=== PATIENT | female | born 1965 | race Hispanic/Latino ===

== ENCOUNTER → 2017-12-23 | Outpatient (CLI) | payer OTHER ==
[~2017-12-23] MED LIST: LEVAQUIN500 MG PO; PROMETHAZINE HC25 M1 PO; TRAMADOL-ACETAMI1 EA PO; ULTRAM 50MG50 MG PO; VESICARE5 MG PO
--- NOTE | 2017-12-23 07:33 | Diagnostic Imaging Report ---
PROCEDURE:X-RAY ABDOMEN - KUB COMPARISON:Abdomen one view 09/09/2017. INDICATIONS:CALCULUS OF KIDNEY FINDINGS: There is a non-obstructed bowel-gas pattern. There are no calcifications projected over the renal shadows, expected course of the ureters or bladder. Bilateral tubal ligation clips. There are no acute osseous abnormalities. The lung bases are clear. CONCLUSION: No acute radiographic abnormality. Dictated by: Vladimir Mojica M.D. on 12/23/2017 at 7:34 Electronically approved by: Vladimir Mojica M.D. on 12/23/2017 at 7:34
== END ==
LOC: RAD 06:37
PROVIDERS: ATTEND Urology
DX: N20.0 Calculus of kidney (principal)
CPT/HCPCS: 74018

== ENCOUNTER → 2018-04-22 | Outpatient (CLI) | payer OTHER ==
--- NOTE | 2018-04-22 09:32 | Diagnostic Imaging Report ---
PROCEDURE:X-RAY ABDOMEN - KUB COMPARISON:12/23/2017. INDICATIONS:KIDNEY STONES FINDINGS: The bowel gas pattern shows no dilated, air-filled loops of bowel. No suspicious calcifications project over the renal shadows or expected ureteral courses. Bilateral tubal ligation clips. Regional skeletal structures are intact with mild degenerative disc changes of the lower lumbar spine. CONCLUSION: no plain film evidence of urolithiasis. Dictated by: Bud Fletcher M.D. on 04/22/2018 at 8:24 Electronically approved by: Bud Fletcher M.D. on 04/22/2018 at 8:24
== END ==
LOC: RAD 07:20
PROVIDERS: ATTEND Urology
DX: N13.30 Unspecified hydronephrosis (principal)
CPT/HCPCS: 74018

== ENCOUNTER → 2019-02-05 | Outpatient (CLI) | payer OTHER ==
--- NOTE | 2019-02-05 10:45 | Diagnostic Imaging Report ---
EXAM: Renal Ultrasound INDICATION: Renal cyst. COMPARISON: KUB 01/13/2019. TECHNIQUE: Transverse and longitudinal images of the kidneys and bladder were obtained. FINDINGS: Right Kidney: Length: Measures 11.9 x 6.1 x 5.5 cm. The renal cortex measures 1.4 cm. Appearance: Normal echogenicity. Collecting system: No hydronephrosis Stones: None Cyst/Mass: No evidence of solid mass. There are simple appearing right-sided anechoic peripelvic cysts, measuring up to 2.9 x 3.3 x 3.9 cm and 2.3 x 1.6 cm. Left Kidney: Length: Measures 11.4 x 5.6 x 5.1 cm. The left renal cortex measures 1.5 cm. Appearance: Normal echogenicity. Collecting system: No hydronephrosis Stones: None Cyst/Mass: None Bladder: Unremarkable in appearance. Bilateral ureteral jets are present. The prevoid volume is 229 cc. No post void volume. IMPRESSION: Simple appearing right peripelvic cysts. No evidence of hydronephrosis or renal stone. Signed by: Dr. Александр Nguyen MD on 02/05/2019 10:42 AM
== END ==
LOC: US 08:55
PROVIDERS: ATTEND Urology
DX: N28.1 Cyst of kidney, acquired (principal)
CPT/HCPCS: 76770

== ENCOUNTER → 2020-03-30 | Outpatient (CLI) | payer OTHER ==
--- NOTE | 2020-03-30 09:00 | Diagnostic Imaging Report ---
Exam: KUB - 2 views Indication: Renal calculus Comparison: Multiple prior KUBs of 01/13/2019 and 04/22/2018, renal ultrasound 02/05/2019 Findings: 8 mm calcific density overlying the upper pole of the left kidney may represent a renal calculus versus intraluminal bowel content. No additional radiographically apparent urinary calculi. Unchanged clips in the pelvis. No acute osseous injury. Impression: 8 mm calcific density overlying the upper pole of the left kidney may represent renal calculus versus intraluminal bowel content. Signed by: Catrina Conroy MD on 03/30/2020 8:56 AM
== END ==
LOC: RAD 07:16
PROVIDERS: ATTEND Urology
DX: N20.0 Calculus of kidney (principal)
CPT/HCPCS: 74018

== ENCOUNTER 2020-04-18 14:58 | Emergency (ER) | payer OTHER ==
[~2020-04-18] VITALS: Ht 154.9 cm; Wt 66.2 kg
[2020-04-18] MEDS ORDERED: MORPHINE SULFATE 2 MG/ML SYR 1ML IV STA (15:29)
[2020-04-18] MEDS ORDERED: SODIUM CHLORIDE 0.9% 1000ML 1,000 ML IV STA (15:29)
[2020-04-18] MEDS ORDERED: KETOROLAC TROMETHAMINE 30 MG/ML VIAL IV STA (15:29)
[2020-04-18] MEDS ORDERED: ONDANSETRON HCL INJ 2MG/ML 2ML 2 MG/ML VIAL IV STA (15:29)
[2020-04-18 15:54] LABS: BILIRUBIN,URINE NEGATIVE (NEGATIVE); CLARITY,URINE SL CLOUDY (CLEAR); COLOR,URINE YELLOW (YELLOW); KETONES,URINE 2+ (NEGATIVE); LEUKOCYTE ESTERASE ,URINE TRACE (NEGATIVE); NITRITE,URINE NEGATIVE (NEGATIVE); PROTEIN,URINE DIPSTICK 1+ (NEGATIVE); URINE UROBILINOGEN 0.2 mg/dL (0.2 - 1)
[2020-04-18 16:05] LABS: BASOPHILS # (AUTO) 0.1 (0.0-0.1); BASOPHILS % 0.5 % (0.0-1.0); EOSINOPHILS % 0.4 % (0.0-6.0); HEMATOCRIT 44.6 % (34.2-44.1); HEMOGLOBIN 15.1 g/dL (12.0-16.0); LYMPHOCYTES # (AUTO) 2.2 (1.0-3.2); MEAN CORPUSCULAR HEMOGLOBIN 30.6 pg (28-32); MEAN CORPUSCULAR HGB CONC 33.9 g/dL (31-35); MEAN CORPUSCULAR VOLUME 90.3 fL (81-99); MONOCYTES # (AUTO) 0.8 (0.2-0.8); MONOCYTES % 7.3 % (4.4-11.3); NEUTROPHILS # (AUTO) 8.3 (2.1-6.9); NEUTROPHILS % 72.4 % (38.7-80.0); PLATELET COUNT 194 x10e3/uL (140-360); RED BLOOD COUNT 4.94 x10e6/uL (3.6-5.1); RED CELL DISTRIBUTION WIDTH 13.3 % (11.7-14.4)
[2020-04-18 16:14] LABS: BACTERIA,URINE MODERATE /HPF; EPITHELIAL CELLS,URINE MODERATE /LPF
[2020-04-18 16:22] LABS: ANION GAP 14.6 mmol/L (8-16); BLOOD UREA NITROGEN 14 mg/dL (7-26); BUN/CREATININE RATIO 16 (6-25); CALCIUM 9.8 mg/dL (8.4-10.2); CARBON DIOXIDE 26 mmol/L (22-29); CHLORIDE 104 mmol/L (98-107); EST GLOMERULAR FILTRATION RATE > 60 ML/MIN (60-); GLUCOSE 127 mg/dL (74-118); POTASSIUM 3.6 mmol/L (3.5-5.1); SODIUM 141 mmol/L (136-145)
[2020-04-18 16:23] LABS: INR 0.81; PROTHROMBIN TIME 11.6 seconds (11.9-14.5)
--- NOTE | 2020-04-18 16:30 | Diagnostic Imaging Report ---
EXAM: CT Abdomen and Pelvis WITHOUT intravenous contrast INDICATION: Left flank pain COMPARISON: KUB 03/30/2020 TECHNIQUE: Abdomen and pelvis were scanned utilizing a multidetector helical scanner from the lung base to the pubic symphysis without administration of IV contrast. Coronal and sagittal reformations were obtained. IV CONTRAST: None ORAL CONTRAST: None COMPLICATIONS: None RADIATION DOSE: Total DLP: 303 mGy*cm Dose modulation, iterative reconstruction, and/or weight based adjustment of the mA/kV was utilized to reduce the radiation dose to as low as reasonably achievable. FINDINGS: LOWER THORAX: Normal. HEPATOBILIARY: No focal hepatic lesions. The gallbladder appears unremarkable. SPLEEN: No splenomegaly. PANCREAS: No focal masses or ductal dilatation. ADRENALS: No adrenal nodules. KIDNEYS/URETERS: 4 mm left mid ureteral calculus with associated moderate left hydroureteronephrosis. Additional 5 mm left upper pole and left lower pole renal calculi. No right-sided calculi. Bilateral renal cysts measure up to 3.5 cm on the right and 2.6 cm on the left. PELVIC ORGANS/BLADDER: Unremarkable. PERITONEUM / RETROPERITONEUM: No free air or fluid. LYMPH NODES: Left internal iliac chain lymphadenopathy measures up to 4.5 x 2.3 cm. VESSELS: Unremarkable. GI TRACT: No abnormal bowel thickening. No bowel obstruction. Normal appendix. BONES AND SOFT TISSUES: No acute osseous injury. No suspicious lytic or blastic lesions. IMPRESSION: 4 mm left mid ureteral calculus with associated moderate left hydroureteronephrosis. Additional 5 mm left upper and lower pole renal calculi. No right renal calculi. Bilateral renal cysts. Left internal iliac lymphadenopathy, possibly reactive. Attention on follow-up imaging is recommended. Signed by: Catrina Conroy MD on 04/18/2020 4:27 PM
[2020-04-18 16:33] LABS: PARTIAL THROMBOPLASTIN TIME 22.4 seconds (23.8-35.5)
--- NOTE | 2020-04-18 16:57 | Emergency Department Note ---
History of Present Illnes History of Present Illness Chief Complaint: Abdominal Complaints History of Present Illness This is a 54 year old female PATIENT IN FROM HOME WITH COMPLAINTS OF LEFT FLANK PAIN X 4 DAYS; STATES HAD A LITHOTRIPSY AT [facility] ON FRIDAY BY DR CASAS, BUT LOST HER PAIN MEDICATION RX. PATIENT STATES SHE WAS SENT BY DR CASAS FOR EVALUATION OF PAIN. APPEARS UNCOMFORTABLE, RATES PAIN 8/10. Historian: Patient Arrival Mode: Car Testing Specialist Required: No Onset (how long ago): day(s) (4) Location: LEFT FLANK Quality: PAIN Radiation: Reports abdomen Severity: severe Onset quality: sudden Timing of current episode: intermittent Progression: waxing and waning Chronicity: recurrent Context: Denies recent illness Relieving factors: none Exacerbating factors: none Associated symptoms: Reports denies other symptoms Treatments prior to arrival: none Past Medical/Family History Physician Review I have reviewed the patient's past medical and family history. Any updates have been documented here. Past Medical History Recent Fever: No Clinical Suspicion of Infectio: No New/Unexplained Change in Ment: No Past Medical History: Diabetes, Hypothyroidism, Kidney Stones Past Surgical History: Hysterectomy Other Surgery: Partial Hysterectomy LITHOTRIPSY Social History Smoking Cessation: Never Smoker Counseling Performed: No Alcohol Use: None Any Illegal Drug Use: No TB Exposure/Symptoms: No Physically hurt or threatened: No Family History Family history of heart diseas: No Other Last Tetanus: OOD Any Pre-Existing Lines (PICC,: No Review of Systems Review of Systems Constitutional: Reports no symptoms EENTM: Reports no symptoms Cardiovascular: Reports no symptoms Respiratory: Reports no symptoms Gastrointestinal: Reports no symptoms Genitourinary: Reports no symptoms Musculoskeletal: Reports as per HPI Integumentary: Reports no symptoms Neurological: Reports no symptoms Psychological: Reports no symptoms Endocrine: Reports no symptoms Hematological/Lymphatic: Reports no symptoms Physical Exam Related Data Allergies: Coded Allergies: codeine (Verified Allergy, Severe, SOB, 04/18/20) hydrocodone (Unverified Allergy, Severe, SOB, 04/18/20) Triage Vital Signs Vital Signs Date Time Temp Pulse Resp B/P (MAP) Pulse Ox O2 Delivery O2 Flow Rate FiO2 04/18/20 15:10 98.7 83 16 132/116 97 Room Air Vital signs reviewed: Yes Physical Exam CONSTITUTIONAL Constitutional: Present well-developed, Present well-nourished HENT HENT: Present normocephalic, Present atraumatic, Present oropharynx clear/moist, Present nose normal HENT L/R: Present left ext ear normal, Present right ext ear normal EYES Eyes: Reports PERRL, Reports conjunctivae normal NECK Neck: Present ROM normal PULMONARY Pulmonary: Present effort normal, Present breath sounds normal CARDIOVASCULAR Cardiovascular: Present regular rhythm, Present heart sounds normal, Present capillary refill normal, Present normal rate GASTROINTESTINAL Abdominal: Present left CVA tenderness GENITOURINARY Genitourinary: Present exam deferred SKIN Skin: Present warm, Present dry MUSCULOSKELETAL Musculoskeletal: Present ROM normal NEUROLOGICAL Neurological: Present alert, Present oriented x 3, Present no gross motor or sensory deficits PSYCHOLOGICAL Psychological: Present mood/affect normal, Present judgement normal Results Laboratory Result Diagram: 04/18/20 1540 04/18/20 1540 Laboratory Laboratory Tests Test 04/18/20 15:40 04/18/20 15:20 White Blood Count 11.39 x10e3/uL (4.8-10.8) Red Blood Count 4.94 x10e6/uL (3.6-5.1) Hemoglobin 15.1 g/dL (12.0-16.0) Hematocrit 44.6 % (34.2-44.1) Mean Corpuscular Volume 90.3 fL (81-99) Mean Corpuscular Hemoglobin 30.6 pg (28-32) Mean Corpuscular Hemoglobin Concent 33.9 g/dL (31-35) Red Cell Distribution Width 13.3 % (11.7-14.4) Platelet Count 194 x10e3/uL (140-360) Neutrophils (%) (Auto) 72.4 % (38.7-80.0) Lymphocytes (%) (Auto) 19.0 % (18.0-39.1) Monocytes (%) (Auto) 7.3 % (4.4-11.3) Eosinophils (%) (Auto) 0.4 % (0.0-6.0) Basophils (%) (Auto) 0.5 % (0.0-1.0) Neutrophils # (Auto) 8.3 (2.1-6.9) Lymphocytes # (Auto) 2.2 (1.0-3.2) Monocytes # (Auto) 0.8 (0.2-0.8) Eosinophils # (Auto) 0.0 (0.0-0.4) Basophils # (Auto) 0.1 (0.0-0.1) Absolute Immature Granulocyte (auto 0.05 x10e3/uL (0-0.1) Prothrombin Time 11.6 seconds (11.9-14.5) Prothromb Time International Ratio 0.81 Activated Partial Thromboplast Time 22.4 seconds (23.8-35.5) Sodium Level 141 mmol/L (136-145) Potassium Level 3.6 mmol/L (3.5-5.1) Chloride Level 104 mmol/L (98-107) Carbon Dioxide Level 26 mmol/L (22-29) Anion Gap 14.6 mmol/L (8-16) Blood Urea Nitrogen 14 mg/dL (7-26) Creatinine 0.90 mg/dL (0.57-1.11) Estimat Glomerular Filtration Rate > 60 ML/MIN (60-) BUN/Creatinine Ratio 16 (6-25) Glucose Level 127 mg/dL (74-118) Calcium Level 9.8 mg/dL (8.4-10.2) Urine Color Yellow (YELLOW) Urine Clarity Sl cloudy (CLEAR) Urine pH 6 (5 - 7) Urine Specific [place] 1.025 (1.010-1.025) Urine Protein 1+ (NEGATIVE) Urine Glucose (UA) Negative (NEGATIVE) Urine Ketones 2+ (NEGATIVE) Urine Blood Moderate (NEGATIVE) Urine Nitrite Negative (NEGATIVE) Urine Bilirubin Negative (NEGATIVE) Urine Urobilinogen 0.2 mg/dL (0.2 - 1) Urine Leukocyte Esterase Trace (NEGATIVE) Urine RBC 11-20 /HPF (0-5) Urine WBC 6-10 /HPF (0-5) Urine Epithelial Cells Moderate /LPF (NONE) Urine Bacteria Moderate /HPF (NONE) Lab results reviewed: Yes Imaging Imaging results reviewed: Yes Impressions EXAM: CT Abdomen and Pelvis WITHOUT intravenous contrast INDICATION: Left flank pain COMPARISON: KUB 03/30/2020 TECHNIQUE: Abdomen and pelvis were scanned utilizing a multidetector helical scanner from the lung base to the pubic symphysis without administration of IV contrast. Coronal and sagittal reformations were obtained. IV CONTRAST: None ORAL CONTRAST: None COMPLICATIONS: None RADIATION DOSE: Total DLP: 303 mGy*cm Dose modulation, iterative reconstruction, and/or weight based adjustment of the mA/kV was utilized to reduce the radiation dose to as low as reasonably achievable. FINDINGS: LOWER THORAX: Normal. HEPATOBILIARY: No focal hepatic lesions. The gallbladder appears unremarkable. SPLEEN: No splenomegaly. PANCREAS: No focal masses or ductal dilatation. ADRENALS: No adrenal nodules. KIDNEYS/URETERS: 4 mm left mid ureteral calculus with associated moderate left hydroureteronephrosis. Additional 5 mm left upper pole and left lower pole renal calculi. No right-sided calculi. Bilateral renal cysts measure up to 3.5 cm on the right and 2.6 cm on the left. PELVIC ORGANS/BLADDER: Unremarkable. PERITONEUM / RETROPERITONEUM: No free air or fluid. LYMPH NODES: Left internal iliac chain lymphadenopathy measures up to 4.5 x 2.3 cm. VESSELS: Unremarkable. GI TRACT: No abnormal bowel thickening. No bowel obstruction. Normal appendix. BONES AND SOFT TISSUES: No acute osseous injury. No suspicious lytic or blastic lesions. IMPRESSION: 4 mm left mid ureteral calculus with associated moderate left hydroureteronephrosis. Additional 5 mm left upper and lower pole renal calculi. No right renal calculi. Bilateral renal cysts. Left internal iliac lymphadenopathy, possibly reactive. Attention on follow-up imaging is recommended. Signed by: Catrina Conroy MD on 04/18/2020 4:27 PM Assessment & Plan Medical Decision Making MDM LEFT FLANK PAIN - CHECK CBC, CHEM, UA/CX, CT ABD/PELVIS - R/O RENAL STONE, PYELONEPHRITIS, RENAL INSUFF, ELECTROLYTE ABNL Reassessment Reassessment REPORT TO DR Lexie NUNEZ TO FOLLOW-UP CT AND UA, DISPO PER DR NUNEZ Assessment & Plan Final Impression: (1) UTI (urinary tract infection) (2) Ureter, calculus Depart Disposition: HOME, SELF-CARE Last Vital Signs Date Time Temp Pulse Resp B/P (MAP) Pulse Ox O2 Delivery O2 Flow Rate FiO2 04/18/20 15:10 98.7 83 16 132/116 97 Room Air Home Meds Reported Medications Tramadol/Acetaminophen (TRAMADOL-ACETAMINOPHN 37.5-325) 1 Ea Tab, 1 TAB PO Q6H PRN for PAIN, #30 EACH 02/11/17 Medications in the ED Morphine Sulfate 2 mg ONCE STAT IV ; Start 04/18/20 at 15:29; Stop 04/18/20 at 16:03; Status DC Ondansetron HCl 4 mg ONCE STAT IV ; Start 04/18/20 at 15:29; Stop 04/18/20 at 15:53; Status DC Ketorolac Tromethamine 30 mg ONCE STAT IV ; Start 04/18/20 at 15:29; Stop 04/18/20 at 15:54; Status DC Sodium Chloride 1,000 ml @ 0 mls/hr Q0M STAT IV ; Start 04/18/20 at 15:29; Stop 04/18/20 at 15:31; Status DC ANTOINETTE LI MD Apr 18, 2020 16:57
[2020-04-18] MEDS ORDERED: ONDANSETRON HCL INJ 2MG/ML 2ML 2 MG/ML VIAL ONE (18:57)
[2020-04-18] MEDS ORDERED: KETOROLAC TROMETHAMINE 30 MG/ML VIAL ONE (18:57)
[2020-04-18] MEDS ORDERED: SODIUM CHLORIDE 0.9% 1000ML 1,000 ML ONE (18:57)
--- OUTSIDE RECORDS SUMMARY | 2020-05-05 11:32 | XMS REPORT | Continuity of Care Document ---
Author Author [facility] t Organization [facility] Address [facility] [place] [address] Phone Unavailable Care Team Providers Care Inbound Sales Representative Name Role Phone HDRUV NAVARRO PCP Gee LI Attphys Unavailable Navneet COHEN, Fany Peralta Attphys Jeanne Echevarria MD Attphys FABIAN CASAS Attphys Unavailable DIONE SALCEDO M.D. Attphys Unavailable Oscar Swift M.D. Attphys Unavailable DHRUV NAVARRO M.D. Attphys Unavailable SHAWN WANG M.D. Attphys Unavailable LUBA STEIN M.D. Attphys Unavailable WALI DIXON P.A. Attphys Unavailable THUY GUAN M.D. Attphys Unavailable WAQAR WHITNEY RD Attphys Unavailable IRON VILLAR M.D. Attphys Unavailable GENA STILL D.O. Attphys Unavailable BABAK ANTONY M.D. Attphys Unavailable FABIAN CASAS Admphyvibha Unavailable Payers Payer Name Policy Type Policy Number Effective Date Expiration Date Vibha lemus [facility] Choice Excha [id number] 2016 00:0 0:00 [facility] MARKETPLACExxxxxxxxxxxx2019-PresentExchange xxxxxxxxxxxx 2019 00:00:00 [place] Problems Condition Name Condition Details Condition Category Status Onset Date Resolution Date Last Treatment Date Treating Clinician Comments Source Calculus of kidney Calculus of kidney Disease Active 2020-04-14 00:00:0 0 Dylan Real Obstructive uropathy Problem Active 2015-03-13 00:00:00 [facility] Calculus of right ureter Problem Active 2015-03-13 00:00:00 [facility] Supraspinatus tendon tear, right, initial encounter [place] praspinatus tendon tear, right, initial encounter Problem Active [facility] BMI (body mass index) 20.0-29.9 BMI (body mass index) 20.0-29.9 Pro blem Active [facility] H/O mammogram H/O mammogram Problem Resolved [facility] History of high cholesterol History of high cholesterol Problem Resolved [facility] History of menopause History of menopause Problem Resolved [facility] History of renal stone History of renal stone Problem Resolved [facility] Bilateral hip pain Bilateral hip pain Problem Active [facility] Bilateral anterior knee pain Bilateral anterior knee pain Problem Active [facility] Right shoulder tendinitis Right shoulder tendinitis Problem Active [facility] Acute internal derangement of knee, right 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, 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 Problem Active [facility] 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 Problem Active [facility] Constipation Constipation Problem Active [facility] Colon cancer screening Colon cancer screening Problem Active [facility] Allergic contact dermatitis due to other agents Allerg ic contact dermatitis due to other agents Problem Active [facility] Seborrheic keratosis Seborrheic keratosis Problem Active [facility] Other rosacea Other rosacea Problem Active [facility] Breast implant status Breast implant status Problem Active [facility] Need for influenza vaccination Need for influenza vaccination Problem Active [facility] Need for hepatitis C screening test Need for hepatitis C screeni ng test Problem Active [facility] Screening for HIV (human immunodeficiency virus) Scree rina for HIV (human immunodeficiency virus) Problem Active [facility] Chronic back pain Chronic back pain Problem Active [facility] Vitamin D deficiency Vitamin D deficiency Problem Active [facility] Other 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 (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) 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 therapy 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 Problem Active [facility] Screening mammogram, encounter for Screening mammogram, encounte r for Problem Active [facility] Bilateral kidney stones Bilateral kidney stones Problem Active [facility] Rectal bleed Rectal bleed Problem Active [facility] Golfers elbow of right upper extremity Golfers elbow of righ t upper extremity Problem Active [facility] B12 deficiency B12 deficiency Problem Active [facility] Fatty liver Fatty liver Problem Active [facility] Traumatic rotator cuff tear, right, initial encounter Traumatic rotator cuff tear, right, initial encounter Problem Active [facility] Prediabetes Prediabetes Problem Active [facility] Ovarian cyst, left Ovarian cyst, left Problem Active [facility] Acquired hypothyroidism Acquired hypothyroidism Problem Active [facility] Dyslipidemia Dyslipidemia Problem Active [facility] Iron deficiency Iron deficiency Problem Active [facility] Abnormal CBC measurement Abnormal CBC measurement Problem Active [facility] Stage 2 chronic kidney disease Stage 2 chronic kidney disease Problem Active [facility] Tremor, essential Tremor, essential Problem Active [facility] Colon polyps Colon polyps Problem Active [facility] History of colon polyps History of colon polyps Problem Active [facility] Abnormal LFTs Abnormal LFTs Problem Active [facility] 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 Problem Active [facility] Solar lentigo Solar lentigo Problem Active [facility] 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 Problem Active [facility] Bilateral renal cysts Bilateral renal cysts Problem Active [facility] Nail disorder Nail disorder Problem Active [facility] Mammogram abnormal Mammogram abnormal Problem Active [facility] Allergies, Adverse Reactions, Alerts Allergy Name Allergy Type Status Severity Reaction(s) Onset Date Inacti ve Date Treating Clinician Comments Source Codeine Allergy to substance Active Severe SOB 2020-04-18 00:00:00 [facility] Hydrocodone Allergy to substance Active Severe SOB 2020-04-18 00:00:00 [facility] Codeine Propensity to adverse reactions to drug Active Anaphylaxis 2020-04-06 00:00:00 Dylan you Hydrocodone Propensity to adverse reactions to drug Active Anaphylaxis 2020-04-06 00:00:00 Dylan Meth odist Codeine Derivatives Allergy to drug (finding) Active Shortness of breath, Anxiety [facility] kristi Chavira Hydrocodone-Acetaminophen CAPS Allergy to drug (finding) Active Shortness of breath, Anxiety [facility] Family History Family Member Diagnosis Comments Start Date Stop Date Source Mother Family history of Diabetes m ellitus due to underlying condition with other ophthalmic complication [facility] Mother Family history of hypertension [facility] Mother Family history of cerebrovascular accident (CVA) [facility] Father Family history of malignant neoplasm of prostate [facility] Sister Family history of malignant neoplasm of breast [facility] Brother Family history of malignant neoplasm of prostate [facility] Natural mother Diabetes [facility] Natural mother Hypertension Dylan Real Social History Social Habit Start Date Stop Date Quantity Comments Source History SDOH Alcohol Std Drinks Dylan Nunnist History SDOH Alcohol Binge Dylan Real Sex Assigned At [place] Exposure to SARS-CoV-2 (event) Not sure Dylan Real Alcohol intake 2020-04-14 00:00:00 2020-04-14 00:00:00 Lifetime non-drinker (finding) Dylan Real History SDOH Alcohol Frequency 2020-04-06 00:00:00 2020-04-06 00:00:0 0 1 Dylan Real Smoking Status Start Date Stop Date Source Never smoker Dylan you Medications Ordered Medication Name Filled Medication Name Start Date Stop Da te Current Medication? Ordering Clinician Indication Dosage Frequency Signature (SIG) Comments Components Source metformin HCl (METFORMIN ORAL) 2020-04-14 13:25:31 Yes QD Take by mouth every morning. Dylan Real levothyroxine sodium (LEVOTHYROXINE ORAL) 2020-04-14 13:25:31 Yes QD Take by mouth every morning. Dylan jacobson multivitamin with minerals tablet 2020-04-14 13:25:31 Yes 1{tbl} QD Take 1 tablet by mouth daily. Dylan [facility] st Lancets Lancets 2019-03-09 00:00:00 Yes DHRUV NAVARRO M.D. Check twice daily [facility] Glucose Meter Test In Vitro Strip Glucose Meter Test In Vitr o Strip 2019-03-09 00:00:00 Yes DHRUV NAVARRO M.D. USE DIRECTED TW A DAY [facility] metFORMIN HCl ER 500 MG Oral Tablet Extended Release 2 4 Hour metFORMIN HCl ER 500 MG Oral Tablet Extended Release 24 Hour 2018-12-28 00:00:00 Yes DHRUV NAVARRO M.D. TAKE 1 TABLET BY MOUTH EVERY DAY [facility] Levothyroxine Sodium 75 MCG Oral Tablet Levothyroxine Sodium 75 MCG Oral Tablet 2018-02-19 00:00:00 Yes SHAWN WANG M.D. QD TA KE 1 TABLET BY MOUTH DAILY [facility] Claudia manning Atorvastatin Calcium 20 MG Oral Tablet Atorvastatin Calcium 20 MG Oral Tablet 2017-05-28 00:00:00 Yes DHRUV NAVARRO M.D. TAKE 1 TABLET BY MOUTH EVERY NIGHT AT BEDTIME [facility] Tramadol/Acetaminophen (Tramadol-Acetaminophn 37.5-325 ) 1 Ea TAB Tramadol/Acetaminophen (Tramadol-Acetaminophn 37.5-325) 1 Ea TAB Yes 1 Every 6 Hours as needed for Pain [facility] Multi Vitamin TABS Multi Vitamin TABS Yes 1 QD TA KE 1 TABLET DAILY. [facility] Vitamin D3 50 MCG (2000 UT) Oral Tablet Vitamin D3 50 MCG (2 000 UT) Oral Tablet Yes Take 1 tab PO daily [facility] Calcium 600 MG Oral Tablet Calcium 600 MG Oral Tablet Yes TAKE 1 TAB BID [facility] Promethazine Hcl Promethazine Hcl 2017-02-20 00:00:00 No 25 Every 6 Hours as needed for Nausea And Vomiting [facility] Solifenacin Succinate (Vesicare) 5 Mg TABLET Solifenac in Succinate (Vesicare) 5 Mg TABLET 2017-02-09 00:00:00 No 5 Daily [facility] Tramadol Hcl (Ultram 50MG*) 50 Mg TAB Tramadol Hcl (Ultram 50MG* ) 50 Mg TAB 2017-02-09 00:00:00 No 50 Every 6 Hours [facility] Levofloxacin (Levaquin) 500 Mg TABLET Levofloxacin (Levaquin) 50 0 Mg TABLET 2015-04-13 00:00:00 No 500 Daily [facility] Immunizations Ordered Immunization Name Filled Immunization Name Date Status Comments Source Hepatitis B, adult 2019-10-11 08:32:00 Completed [facility] Shingrix 50 MCG Intramuscular Suspension Reconstituted 2019-09-05 00:00:00 Completed [facility] Claudia manning Fluzone Quadrivalent 0.5 ML Intramuscular Suspension 2019-07-09 08:21:00 Completed [facility] Claudia manning Shingrix 50 MCG Intramuscular Suspension Reconstituted 2019-07-06 00:00:00 Completed [facility] Hepatitis B, adult 2019-06-15 08:49:00 Completed [facility] Hepatitis B, adult 2019-04-09 09:09:00 Completed [facility] Tdap 2018-06-10 10:26:00 Completed [facility] Fluzone Quadrivalent 0.5 ML Intramuscular Suspension 2018-06-10 10:25:00 Completed [facility] ns Fluzone Quadrivalent 0.5 ML Intramuscular Suspension 2017-07-09 09:18:00 Completed [facility] ns Fluzone Quadrivalent 0.5 ML Intramuscular Suspension 2016-10-31 10:31:00 Completed [facility] Vital Signs Vital Name Observation Time Observation Value Comments Source Weight 2020-04-18 15:10:00 146 [lb_av] [facility] BMI (Body Mass Index) 2020-04-18 15:10:00 27.6 kg/m2 [facility] Systolic blood pressure 2020-04-14 11:50:00 122 mm[Hg] [place] [facility] Diastolic blood pressure 2020-04-14 11:50:00 68 mm[Hg] [place] Heart rate 2020-04-14 11:50:00 68 /min [place] [facility] Respiratory rate 2020-04-14 11:50:00 18 /min Tony veronique [facility] Oxygen saturation in Arterial blood by Pulse oximetry 04-14 11:50:00 98 /min [place] Body temperature 2020-04-14 11:28:00 36.61 Letha [place] Body height 2020-04-14 09:14:00 154.9 cm [place] [facility] Body weight 2020-04-14 09:14:00 66.044 kg [place] [facility] BMI 2020-04-14 09:14:00 27.51 kg/m2 [place] [facility] Systolic blood pressure 2019-12-13 09:56:00 112 mm[Hg] Loca tion: LUE; Position: Sitting [facility] Diastolic blood pressure 2019-12-13 09:56:00 72 mm[Hg] Loc ation: LUE; Position: Sitting [facility] Body height 2019-12-13 09:56:00 61 [in_us] [facility] Weight 2019-12-13 09:56:00 146 [lb_av] [facility] Body mass index (BMI) [Ratio] 2019-12-13 09:56:00 27.59 kg/m2 [facility] Heart Rate 2019-12-13 09:56:00 68 /min Location: L Radial; Q uality: Normal [facility] Systolic blood pressure 2019-11-30 14:12:00 124 mm[Hg] Loca tion: LUE; Position: Sitting [facility] Diastolic blood pressure 2019-11-30 14:12:00 72 mm[Hg] Loc ation: LUE; Position: Sitting [facility] Body height 2019-11-30 14:12:00 61 [in_us] [facility] Weight 2019-11-30 14:12:00 148 [lb_av] [facility] Body mass index (BMI) [Ratio] 2019-11-30 14:12:00 27.96 kg/m2 [facility] Heart Rate 2019-11-30 14:12:00 75 /min [facility] Systolic blood pressure 2019-11-12 08:02:00 114 mm[Hg] Loca tion: LUE; Position: Sitting [facility] Diastolic blood pressure 2019-11-12 08:02:00 79 mm[Hg] Loc ation: LUE; Position: Sitting [facility] Body height 2019-11-12 08:02:00 61 [in_us] [facility] Weight 2019-11-12 08:02:00 144 [lb_av] [facility] Body mass index (BMI) [Ratio] 2019-11-12 08:02:00 27.21 kg/m2 [facility] Body temperature 2019-11-12 08:02:00 97.3 [degF] Method: Temporal [facility] Heart Rate 2019-11-12 08:02:00 77 /min [facility] Respiratory rate 2019-11-12 08:02:00 16 /min [facility] Systolic blood pressure 2019-11-09 08:06:00 103 mm[Hg] Loca tion: LUE; Position: Sitting [facility] Diastolic blood pressure 2019-11-09 08:06:00 71 mm[Hg] Loc ation: LUE; Position: Sitting [facility] Body height 2019-11-09 08:06:00 61 [in_us] [facility] Weight 2019-11-09 08:06:00 144.3125 [lb_av] [facility] Body mass index (BMI) [Ratio] 2019-11-09 08:06:00 27.27 kg/m2 [facility] Heart Rate 2019-11-09 08:06:00 73 /min [facility] BP Systolic 2019-07-09 08:21:00 115 mm[Hg] [facility] BP Diastolic 2019-07-09 08:21:00 81 mm[Hg] [facility] Heart Rate 2019-07-09 08:21:00 67 /min [facility] BP Systolic 2019-07-09 08:19:00 135 mm[Hg] Location: AMBROCIO; Positi on: Sitting [facility] BP Diastolic 2019-07-09 08:19:00 80 mm[Hg] Location: AMBROCIO; Positi on: Sitting [facility] Heart Rate 2019-07-09 08:19:00 66 /min [facility] Height 2019-07-09 08:19:00 61 [in_us] [facility] Weight 2019-07-09 08:19:00 142 [lb_av] [facility] Body Mass Index Calculated 2019-07-09 08:19:00 26.83 kg/m2 [facility] Temperature 2019-07-09 08:19:00 97.2 [degF] Method: Temporal [facility] Respiration Rate 2019-07-09 08:19:00 16 /min [facility] BP Systolic 2019-05-11 08:14:00 120 mm[Hg] Location: AMBROCIO; Positi on: Sitting [facility] BP Diastolic 2019-05-11 08:14:00 78 mm[Hg] Location: AMBROCIO; Positi on: Sitting [facility] Height 2019-05-11 08:14:00 61 [in_us] [facility] Weight 2019-05-11 08:14:00 142.4375 [lb_av] [facility] Body Mass Index Calculated 2019-05-11 08:14:00 26.91 kg/m2 [facility] Heart Rate 2019-05-11 08:14:00 69 /min [facility] [place] [facility] BP Systolic 2019-05-05 13:18:00 106 mm[Hg] Location: RUE; Positi on: Sitting [facility] BP Diastolic 2019-05-05 13:18:00 66 mm[Hg] Location: RUE; Positi on: Sitting [facility] Height 2019-05-05 13:18:00 61.42 [in_us] [facility] Weight 2019-05-05 13:18:00 141.98 [lb_av] [facility] Body Mass Index Calculated 2019-05-05 13:18:00 26.46 kg/m2 [facility] Heart Rate 2019-05-05 13:18:00 96 /min [facility] Temperature 2019-05-05 13:18:00 98.4 [degF] Method: Oral [facility] O2 SAT 2019-05-05 13:18:00 96 % [facility] BP Systolic 2019-04-09 08:13:00 121 mm[Hg] Location: LUE; Positi on: Sitting [facility] BP Diastolic 2019-04-09 08:13:00 76 mm[Hg] Location: AMBROCIO; Positi on: Sitting [facility] Height 2019-04-09 08:13:00 62 [in_us] [facility] Weight 2019-04-09 08:13:00 141.125 [lb_av] [facility] Body [facility] Index Calculated 2019-04-09 08:13:00 25.81 kg/m2 [facility] Temperature 2019-04-09 08:13:00 97.8 [degF] Method: Temporal [facility] Heart Rate 2019-04-09 08:13:00 61 /min Location: L Brachial Artery; [facility] Respiration Rate 2019-04-09 08:13:00 16 /min Quality: [facility] Height 2019-02-02 10:12:00 62 [in_us] [facility] Weight 2019-02-02 10:12:00 151 [lb_av] [facility] Body Mass Index Calculated 2019-02-02 10:12:00 27.62 kg/m2 [facility] BP Systolic 2019-01-12 08:06:00 122 mm[Hg] Location: LUE; Positi on: Sitting [facility] BP Diastolic 2019-01-12 08:06:00 76 mm[Hg] Location: LUE; Positi on: Sitting [facility] Height 2019-01-12 08:06:00 62 [in_us] [facility] Weight 2019-01-12 08:06:00 150.1875 [lb_av] [facility] Body Mass Index Calculated 2019-01-12 08:06:00 27.47 kg/m2 [facility] Heart Rate 2019-01-12 08:06:00 67 /min [facility] BP Systolic 2018-12-28 09:11:00 117 mm[Hg] Location: WILBERE; Positi on: Sitting [facility] BP Diastolic 2018-12-28 09:11:00 82 mm[Hg] Location: W[place]; Positi on: Sitting [facility] Height 2018-12-28 09:11:00 62 [in_us] [facility] Weight 2018-12-28 09:11:00 153.0625 [lb_av] [facility] Body Mass Index Calculated 2018-12-28 09:11:00 28 kg/m2 [facility] Heart Rate 2018-12-28 09:11:00 74 /min [facility] Temperature 2018-12-28 09:11:00 97.8 [degF] Method: Temporal [facility] Respiration Rate 2018-12-28 09:11:00 16 /min [facility] BP Systolic 2018-10-28 08:25:00 112 mm[Hg] Location: LUE; Positi on: Sitting [facility] BP Diastolic 2018-10-28 08:25:00 79 mm[Hg] Location: LUE; Positi on: Sitting [facility] Height 2018-10-28 08:25:00 62 [in_us] [facility] Weight 2018-10-28 08:25:00 152.5625 [lb_av] [facility] Body Mass Index Calculated 2018-10-28 08:25:00 27.9 kg/m2 [facility] Heart Rate 2018-10-28 08:25:00 89 /min [facility] BP Systolic 2018-09-02 08:15:00 118 mm[Hg] Location: LUE; Positi on: Sitting [facility] BP Diastolic 2018-09-02 08:15:00 80 mm[Hg] Location: LUE; Positi on: Sitting [facility] Height 2018-09-02 08:15:00 62 [in_us] [facility] Weight 2018-09-02 08:15:00 153.125 [lb_av] [facility] Body Mass Index Calculated 2018-09-02 08:15:00 28.01 kg/m2 [facility] Temperature 2018-09-02 08:15:00 97.2 [degF] Method: Temporal [facility] Heart Rate 2018-09-02 08:15:00 70 /min [facility] Respiration Rate 2018-09-02 08:15:00 16 /min [facility] BP Systolic 2018-08-19 13:49:00 119 mm[Hg] Location: LUE; Positi on: Sitting [facility] BP Diastolic 2018-08-19 13:49:00 77 mm[Hg] Location: LUE; Positi on: Sitting [facility] Height 2018-08-19 13:49:00 62 [in_us] [facility] Weight 2018-08-19 13:49:00 154.0625 [lb_av] [facility] Body Mass Index Calculated 2018-08-19 13:49:00 28.18 kg/m2 [facility] Temperature 2018-08-19 13:49:00 97.8 [degF] Method: Oral [facility] Heart Rate 2018-08-19 13:49:00 87 /min [facility] BP Systolic 2018-08-05 08:35:00 123 mm[Hg] Location: LUE; Positi on: Sitting [facility] BP Diastolic 2018-08-05 08:35:00 81 mm[Hg] Location: LUE; Positi on: Sitting [facility] Height 2018-08-05 08:35:00 62 [in_us] [facility] Weight 2018-08-05 08:35:00 150.25 [lb_av] [facility] Body Mass Index Calculated 2018-08-05 08:35:00 27.48 kg/m2 [facility] Heart Rate 2018-08-05 08:35:00 73 /min [facility] BP Systolic 2018-07-23 08:19:00 113 mm[Hg] Location: LUE; Positi on: Sitting [facility] BP Diastolic 2018-07-23 08:19:00 79 mm[Hg] Location: AMBROCIO; Positi on: Sitting [facility] Height 2018-07-23 08:19:00 62 [in_us] [facility] Weight 2018-07-23 08:19:00 149.4375 [lb_av] [facility] Body Mass Index Calculated 2018-07-23 08:19:00 27.33 kg/m2 [facility] Heart Rate 2018-07-23 08:19:00 67 /min [facility] Temperature 2018-07-23 08:19:00 97.4 [degF] Method: Temporal [facility] Respiration Rate 2018-07-23 08:19:00 16 /min [facility] BP Systolic 2018-07-08 11:45:00 106 mm[Hg] Location: AMBROCIO; Positi on: Sitting [facility] BP Diastolic 2018-07-08 11:45:00 69 mm[Hg] Location: AMBROCIO; Positi on: Sitting [facility] Height 2018-07-08 11:45:00 62 [in_us] [facility] Weight 2018-07-08 11:45:00 148.375 [lb_av] [facility] Body Mass Index Calculated 2018-07-08 11:45:00 27.14 kg/m2 [facility] Heart Rate 2018-07-08 11:45:00 68 /min [facility] Temperature 2018-07-08 11:45:00 97.7 [degF] Method: Temporal [facility] Respiration Rate 2018-07-08 11:45:00 16 /min [facility] BP Systolic 2018-06-10 08:07:00 101 mm[Hg] Location: AMBROCIO; Positi on: Sitting [facility] BP Diastolic 2018-06-10 08:07:00 67 mm[Hg] Location: WILBERE; Positi on: Sitting [facility] Height 2018-06-10 08:07:00 62 [in_us] [facility] Weight 2018-06-10 08:07:00 149.5625 [lb_av] [facility] Body Mass Index Calculated 2018-06-10 08:07:00 27.36 kg/m2 [facility] Temperature 2018-06-10 08:07:00 97.5 [degF] Method: Temporal [facility] Heart Rate 2018-06-10 08:07:00 63 /min [facility] Respiration Rate 2018-06-10 08:07:00 16 /min [facility] BP Systolic 2018-05-20 08:53:00 112 mm[Hg] Location: AMBROCIO; Positi on: Sitting [facility] BP Diastolic 2018-05-20 08:53:00 75 mm[Hg] Location: AMBROCIO; Positi on: Sitting [facility] Height 2018-05-20 08:53:00 62 [in_us] [facility] Weight 2018-05-20 08:53:00 150.3125 [lb_av] [facility] Body Mass Index Calculated 2018-05-20 08:53:00 27.49 kg/m2 [facility] Heart Rate 2018-05-20 08:53:00 69 /min [facility] BP Systolic 2018-04-01 11:50:00 103 mm[Hg] Location: AMBROCIO; Positi on: Sitting [facility] BP Diastolic 2018-04-01 11:50:00 67 mm[Hg] Location: AMBROCIO; Positi on: Sitting [facility] Height 2018-04-01 11:50:00 152.9 cm [facility] Weight 2018-04-01 11:50:00 148.0375 [lb_av] [facility] Body Mass Index Calculated 2018-04-01 11:50:00 28.72 kg/m2 [facility] Temperature 2018-04-01 11:50:00 98.5 [degF] Method: Oral [facility] Heart Rate 2018-04-01 11:50:00 63 /min Location: L Brachial Artery; Quality: Normal [facility] Respiration Rate 2018-04-01 11:50:00 16 /min Quality: Normal [facility] O2 SAT 2018-04-01 11:50:00 100 % Source: RA [facility] BP Systolic 2018-02-13 10:13:00 132 mm[Hg] Location: LUE; Positi on: Sitting [facility] BP Diastolic 2018-02-13 10:13:00 84 mm[Hg] Location: LUE; Positi on: Sitting [facility] Height 2018-02-13 10:13:00 61 [in_us] [facility] Weight 2018-02-13 10:13:00 150.375 [lb_av] [facility] Body Mass Index Calculated 2018-02-13 10:13:00 28.41 kg/m2 [facility] Heart Rate 2018-02-13 10:13:00 71 /min [facility] BP Systolic 2017-12-10 08:16:00 120 mm[Hg] Location: LUE; Positi on: Sitting [facility] BP Diastolic 2017-12-10 08:16:00 79 mm[Hg] Location: LUE; Positi on: Sitting [facility] Height 2017-12-10 08:16:00 61 [in_us] [facility] Weight 2017-12-10 08:16:00 153.375 [lb_av] [facility] Body Mass Index Calculated 2017-12-10 08:16:00 28.98 kg/m2 [facility] Temperature 2017-12-10 08:16:00 97.6 [degF] Method: Temporal [facility] Heart Rate 2017-12-10 08:16:00 68 /min [facility] Respiration Rate 2017-12-10 08:16:00 16 /min [facility] BP Systolic 2017-12-05 08:22:00 107 mm[Hg] Location: LUE; Positi on: Sitting [facility] BP Diastolic 2017-12-05 08:22:00 72 mm[Hg] Location: LUE; Positi on: Sitting [facility] Height 2017-12-05 08:22:00 61 [in_us] [facility] Weight 2017-12-05 08:22:00 151 [lb_av] [facility] Body Mass Index Calculated 2017-12-05 08:22:00 28.53 kg/m2 [facility] Temperature 2017-12-05 08:22:00 99.2 [degF] Method: Oral [facility] Heart Rate 2017-12-05 08:22:00 67 /min Location: L Radial; [facility] BP Systolic 2017-10-24 12:52:00 127 mm[Hg] Location: WILBERE; Positi on: Sitting [facility] BP Diastolic 2017-10-24 12:52:00 81 mm[Hg] Location: WILBERE; Positi on: Sitting [facility] Height 2017-10-24 12:52:00 61 [in_us] [facility] Weight 2017-10-24 12:52:00 153.375 [lb_av] [facility] Body Mass Index Calculated 2017-10-24 12:52:00 28.98 kg/m2 [facility] Heart Rate 2017-10-24 12:52:00 76 /min [facility] Respiration Rate 2017-10-24 12:52:00 16 /min [facility] BP Systolic 2017-10-16 08:42:00 114 mm[Hg] Location: WILBERE; Positi on: Sitting [facility] BP Diastolic 2017-10-16 08:42:00 74 mm[Hg] Location: AMBROCIO; Positi on: Sitting [facility] Height 2017-10-16 08:42:00 61 [in_us] [facility] Weight 2017-10-16 08:42:00 151.375 [lb_av] [facility] Body Mass Index Calculated 2017-10-16 08:42:00 28.6 kg/m2 [facility] Temperature 2017-10-16 08:42:00 97.4 [degF] Method: Temporal [facility] Heart Rate 2017-10-16 08:42:00 77 /min Location: L Brachial Artery; [facility] Respiration Rate 2017-10-16 08:42:00 16 /min Quality: Normal [facility] BP Systolic 2017-08-21 10:06:00 116 mm[Hg] Location: LUE; Positi on: Sitting [facility] BP Diastolic 2017-08-21 10:06:00 77 mm[Hg] Location: LUE; Positi on: Sitting [facility] Height 2017-08-21 10:06:00 61 [in_us] [facility] Weight 2017-08-21 10:06:00 150 [lb_av] [facility] Body Mass Index Calculated 2017-08-21 10:06:00 28.34 kg/m2 [facility] Temperature 2017-08-21 10:06:00 98.2 [degF] Method: Temporal [facility] Heart Rate 2017-08-21 10:06:00 62 /min [facility] Respiration Rate 2017-08-21 10:06:00 16 /min [facility] BP Systolic 2017-08-06 09:12:00 112 mm[Hg] Location: RUE; Positi on: Sitting [facility] BP Diastolic 2017-08-06 09:12:00 79 mm[Hg] Location: RUE; Positi on: Sitting [facility] Height 2017-08-06 09:12:00 61 [in_us] [facility] Weight 2017-08-06 09:12:00 146 [lb_av] [facility] Body Mass Index Calculated 2017-08-06 09:12:00 27.59 kg/m2 [facility] Temperature 2017-08-06 09:12:00 98.5 [degF] Method: Oral [facility] Heart Rate 2017-08-06 09:12:00 62 /min [facility] Respiration Rate 2017-08-06 09:12:00 18 /min [facility] Procedures Procedure Date / Time Performed Performing Clinician Margarita early CT of abdomen and pelvis without contrast 2020-04-18 00:00:00 [facility] MI AN ELECTIVE SUPRAGLOTTIC AIRWAY 2020-04-14 10:10:53 Bob Aguayo ESWL WITH CYSTO 2020-04-14 10:00:00 Fabian Casas ethodist POC GLUCOSE 2020-04-14 09:19:00 Fabian Casas ethodist XR ABDOMEN 1 VW 2020-04-14 08:40:00 Fabian Casas ethodi URINE CULTURE 2020-04-10 13:18:00 Fabian Casas COVID-19 QUALITATIVE PCR 2020-04-10 12:20:00 Fabian Casas URINALYSIS SCREEN AND MICROSCOPY, WITH REFLEX TO CULTURE 202 12:20:00 Fabian Casas HEMOGLOBIN A1C 2020-04-10 12:19:00 Fabian Casas ethodi BASIC METABOLIC PANEL 2020-04-10 12:19:00 Fabian Casas stolazaro Real [facility] COMPLETE BLD COUNT W/AUTO DIFF 2020-04-10 12:19:00 Cait Casas ESTIMATED GFR 2020-04-10 12:19:00 Fabian Casas ethodist Colonoscopy 2019-12-14 00:00:00 [facility] [place] [facility] [ON LICENSE OF [facility]] FOLATE, SERUM 2019-11-30 00:00:00 [facility] [Q] METHYLMALONIC ACID AND HOMOCYSTEINE (NUTRITIONAL A ND CONGENITAL) 2019-11-30 00:00:00 [facility] [ON LICENSE OF [facility]] VITAMIN B12 2019-11-30 00:00:00 [facility] [ON LICENSE OF [facility]] TSH, 3RD GENERATION W/REFLEX TO FT4 2019-11-09 00:00:00 [facility] [ON LICENSE OF [facility]] CBC (INCLUDES DIFF/PLT) 2019-07-09 00:00:00 [facility] [ON LICENSE OF [facility]] CMP W/EGFR 2019-07-09 00:00:00 [facility] [ON LICENSE OF [facility]] FERRITIN 2019-07-09 00:00:00 [facility] [place] [facility] [ON LICENSE OF [facility]] LIPID PANEL 2019-07-09 00:00:00 [facility] [ON LICENSE OF [facility]] TSH, 3RD GENERATION W/REFLEX TO FT4 2019-07-09 00:00:00 [facility] [ON LICENSE OF [facility]] HEMOGLOBIN A1c 2019-07-09 00:00:00 [facility] [ON LICENSE OF [facility]] TSH, 3RD GENERATION W/REFLEX TO FT4 2019-05-11 00:00:00 [facility] [QL] CA 125 2019-05-05 00:00:00 [facility] Pelvis with Pelvis Transvaginal [id number] 2019-05-05 00:00:00 [facility] [ON LICENSE OF [facility]] LIPID PANEL 2019-04-12 00:00:00 [facility] [Q] FECAL GLOBIN BY IMMUNOCHEMISTRY 2019-04-09 00:00:00 [facility] [ON LICENSE OF [facility]] LIPID PANEL 2019-04-09 00:00:00 [facility] MA Digital Mammo DX Santy [id number] 2019-02-10 00:00:00 [facility] [place] [id number] 2019-02-10 00:00:00 [facility] [ON LICENSE OF [facility]] TSH, 3RD GENERATION W/REFLEX TO FT4 2019-01-12 00:00:00 [facility] [ON LICENSE OF [facility]] CBC (INCLUDES DIFF/PLT) 2018-12-28 00:00:00 [facility] [ON LICENSE OF [facility]] BASIC METABOLIC PANEL W/EGFR 2018-12-28 00:00:00 [facility] [H] Methylmalonic Acid and Homocysteine 2018-12-28 00:00:00 [facility] [QL] HEPATIC FUNCTION PANEL 2018-12-28 00:00:00 [facility] [QL] HEPATITIS A AB, TOTAL 2018-12-28 00:00:00 [facility] [ON LICENSE OF [facility]] HEPATITIS A IGM 2018-12-28 00:00:00 [facility] [ON LICENSE OF [facility]] HEPATITIS B SURFACE ANTIBODY (QUANT) 2018-12-28 00:00:00 [facility] [ON LICENSE OF [facility]] HEPATITIS C ANTIBODY 2018-12-28 00:00:00 [facility]] IRON AND TOTAL IRON BINDING CAPACITY 2018-12-28 00:00:00 [facility] [ON LICENSE OF [facility]] FERRITIN 2018-12-28 00:00:00 [facility] [QH] HEPATITIS B SURFACE ANTIGEN W/REFL CONFIRM 2018-12-28 00:00 :00 [facility] Liver [id number] 2018-12-28 00:00:00 [facility] [Q] METHYLMALONIC ACID AND HOMOCYSTEINE (NUTRITIONAL A ND CONGENITAL) 2018-12-23 00:00:00 [facility] [QL] HEPATIC FUNCTION PANEL 2018-12-23 00:00:00 [facility] [QL] HEPATITIS A AB, TOTAL 2018-12-23 00:00:00 [facility] [ON LICENSE OF [facility]] HEPATITIS A IGM 2018-12-23 00:00:00 [facility]] HEPATITIS B SURFACE ANTIBODY (QUANT) 2018-12-23 00:00:00 [facility] [QL] HEPATITIS C ANTIBODY 2018-12-23 00:00[facility]00 [facility] [Q] HEPATITIS B SURFACE ANTIGEN W/REFL CONFIRM 2018-12-23 00:00 :00 [facility] [] IRON, TIBC AND FERRITIN PANEL 2018-12-23 00:00:00 [facility] [ON LICENSE OF [facility]] CBC (INCLUDES DIFF/PLT) 2018-12-08 00:00:00 [facility] [ON LICENSE OF [facility]] CMP W/EGFR 2018-12-08 00:00:00 [facility] [ON LICENSE OF [facility]] LIPID PANEL 2018-12-08 00:00:00 [facility] [ON LICENSE OF [facility]] VITAMIN D, 25-HYDROXY, LC/MS/MS 2018-12-08 00:00:00 [facility] [ON LICENSE OF [facility]] VITAMIN B12 2018-12-08 00:00:00 [facility] [] LIPID PANEL WITH REFLEX TO DIRECT LDL 2018-12-08 00:00:00 [facility] [QL] VITAMIN D, 1,25 DIHYDROXY LC/MS/MS 2018-12-08 00:00:00 [facility] ID Digital Mammo Screening Santy [id number] 2018-12-08 00:00:00 [facility] Post Op Promise 29 Survey 2018-11-17 00:00:00 [facility] Promis 29 Survey 2018-11-17 00:00:00 [facility] [QL] TSH, 3RD GENERATION W/REFLEX TO FT4 2018-10-28 00:00:00 [facility] [QL] TSH, 3RD GENERATION W/REFLEX TO FT4 2018-08-05 00:00:00 [facility] MR Shoulder wo contrast [id number] 2018-07-23 00:00:00 [facility] US Extremity upper (non-vascular) [id number] 2018-07-08 00:00:00 [facility] [QLH] VITAMIN D, 25-HYDROXY, LC/MS/MS 2018-06-10 00:00:00 [facility] [QLH] HEPATITIS C ANTIBODY 2018-06-10 00:00:00 [facility] [Q] HIV AB, HIV 1/2, EIA, WITH REFLEXES 2018-06-10 00:00:00 [facility] [QLH] TSH, 3RD GENERATION W/REFLEX TO FT4 2018-05-20 00:00:00 [facility] [QLH] TSH, 3RD GENERATION W/REFLEX TO FT4 2018-02-19 00:00:00 [facility] Pelvis with Pelvis Transvaginal [id number] 2018-02-17 00:00:00 [facility] [QL] THYROID PEROXIDASE ANTIBODIES 2018-02-13 00:00:00 [facility] [QL] TSH, 3RD GENERATION 2018-02-05 00:00:00 Un [facility] [QL] T3, TOTAL 2018-02-04 00:00:00 [facility] [place] [facility] [QL] T4, FREE 2018-02-04 00:00:00 [facility] [QLH] TSH, 3RD GENERATION 2018-02-04 00:00:00 Un [facility] [QL] CBC (INCLUDES DIFF/PLT) 2017-12-10 00:00:00 [facility] [QLH] CMP W/EGFR 2017-12-10 00:00:00 [facility] [QL] LIPID PANEL 2017-12-10 00:00:00 [facility] [QLH] TSH, 3RD GENERATION W/REFLEX TO FT4 2017-12-10 00:00:00 [facility] [QLH] VITAMIN D, 25-HYDROXY, LC/MS/MS 2017-12-10 00:00:00 [facility] [QL] HEMOGLOBIN A1c 2017-12-10 00:00:00 [facility] [H] Methylmalonic Acid and Homocysteine 2017-12-10 00:00:00 [facility] MA Digital Mammo Screening Santy [id number] 2017-12-10 00:00:00 [facility] US Pelvis with Pelvis Transvaginal [id number] 2017-08-06 00:00:00 [facility] History of Breast Surgery Removal Of Mammary Implant Bilateral [facility] History of Abdominoplasty [facility] History of Oophorectomy [facility] History of Hysterectomy [facility] History of Rotator Cuff Repair [facility] Plan of Care Planned Activity Planned Date Details Comments Source Future Scheduled Test 2020-05-06 00:00:00 INFLUENZA VACCINE [code = INFLUENZA VACCINE] [facility] Future Scheduled Test 2020-04-24 00:00:00 [QLH] TSH, 3RD GEN ERATION W/REFLEX TO FT4 [code = [QLH] TSH, 3RD GENERATION W/REFLEX TO FT4] [facility] Diagnostic Test Pending 2019-12-16 00:00:00 Colonoscopy [code = 737 [id number]] [facility] Diagnostic Test Pending 2019-12-16 00:00:00 Colonoscopy [code = 737 [id number]] [facility] Diagnostic Test Pending 2019-10-25 00:00:00 [QLH] TSH, 3RD G ENERATION W/REFLEX TO FT4 [code = [QLH] TSH, 3RD GENERATION W/REFLEX TO FT4] [facility] Diagnostic Test Pending 2019-10-25 00:00:00 [QLH] TSH, 3RD G ENERATION W/REFLEX TO FT4 [code = [QLH] TSH, 3RD GENERATION W/REFLEX TO FT4] [facility] Diagnostic Test Pending 2019-05-03 00:00:00 [QLH] TSH, 3RD G ENERATION W/REFLEX TO FT4 [code = [QLH] TSH, 3RD GENERATION W/REFLEX TO FT4] [facility] Diagnostic Test Pending 2019-05-03 00:00:00 [QLH] TSH, 3RD G ENERATION W/REFLEX TO FT4 [code = [QLH] TSH, 3RD GENERATION W/REFLEX TO FT4] [facility] Diagnostic Test Pending 2018-12-23 00:00:00 [QLH] TSH, 3RD G ENERATION W/REFLEX TO FT4 [code = [QLH] TSH, 3RD GENERATION W/REFLEX TO FT4] [facility] Diagnostic Test Pending 2018-12-23 00:00:00 [QLH] TSH, 3RD G ENERATION W/REFLEX TO FT4 [code = [QLH] TSH, 3RD GENERATION W/REFLEX TO FT4] [facility] Diagnostic Test Pending 2018-10-08 00:00:00 [QLH] TSH, 3RD G ENERATION W/REFLEX TO FT4 [code = [QLH] TSH, 3RD GENERATION W/REFLEX TO FT4] [facility] Diagnostic Test Pending 2018-10-08 00:00:00 [QLH] TSH, 3RD G ENERATION W/REFLEX TO FT4 [code = [QLH] TSH, 3RD GENERATION W/REFLEX TO FT4] [facility] Diagnostic Test Pending 2018-07-20 00:00:00 [QLH] TSH, 3RD G ENERATION W/REFLEX TO FT4 [code = [QLH] TSH, 3RD GENERATION W/REFLEX TO FT4] [facility] Diagnostic Test Pending 2018-07-20 00:00:00 [QLH] TSH, 3RD G ENERATION W/REFLEX TO FT4 [code = [QLH] TSH, 3RD GENERATION W/REFLEX TO FT4] [facility] Diagnostic Test Pending 2018-05-11 00:00:00 [QLH] TSH, 3RD G ENERATION W/REFLEX TO FT4 [code = [QLH] TSH, 3RD GENERATION W/REFLEX TO FT4] [facility] Diagnostic Test Pending 2018-05-11 00:00:00 [QLH] TSH, 3RD G ENERATION W/REFLEX TO FT4 [code = [QLH] TSH, 3RD GENERATION W/REFLEX TO FT4] [facility] Diagnostic Test Pending 2017-08-27 00:00:00 [QLH] CMP W/EGFR [code = [QLH] CMP W/EGFR] [facility] Diagnostic Test Pending 2017-08-27 00:00:00 [QLH] LIPID PANE L [code = [QLH] LIPID PANEL] [facility] Future Scheduled Test 2015 00:00:00 BREAST CANCER SCRE ENING [code = BREAST CANCER SCREENING] [facility] Scheduled Test 2015 00:00:00 COLONOSCOPY SCREEN ING [code = COLONOSCOPY SCREENING] [facility] Scheduled Test 2015 00:00:00 SHINGLES VACCINES (#1) [code = SHINGLES VACCINES (#1)] [facility] Scheduled Test 1986 00:00:00 Screening for jerry gnant neoplasm of cervix (procedure) [code = 631656311] [facility] 2020-06-07 08:00:00 Leidy ESCOBAR, [facility] Future Appointment 2020-05-12 08:00:00 Leidy BARTLETT [facility] Future Appointment 2020-05-09 08:00:00 [facility] Kidney Stones [facility] Instructions Urinary Tract Infection - Women [facility] Encounters Start Date/Time End Date/Time Encounter Type Admission Type Attendi RUST Care Department Encounter ID Source 2020-04-18 15:25:00 2020-04-18 20:23:00 Departed Emergency Room 1 KYLAH LIELIAN [facility] [id number] [facility] 2020-04-14 00:00:00 2020-04-14 00:00:00 Outpatient DEREK CASAS [facility] [id number] [facility] 2020-04-10 00:00:00 2020-04-10 00:00:[address] [facility] [id number] [facility] 2020-03-30 07:16:00 2020-03-30 07:16:00 Registered Clinic 3 FABIAN CASAS [facility] [id number] [facility] 2019-12-16 05:38:00 2019-12-16 05:38:00 Outpatient SE SE [id number] [facility] 2019-12-13 10:00:00 2019-12-13 10:00:00 Appointment; DIONE SALCEDO M.D. CATALANO, MARC, M.D. [facility] [id number] [facility] 2019-11-30 14:15:00 2019-11-30 14:15:00 Appointment; Oscar Swift M.D. Quesada, Jorge, M.D. [facility], [address] [id number] [facility] 2019-11-12 08:15:00 2019-11-12 08:15:00 Appointment; DHRUV NAVARRO M.D. SATTAR, BEENA, M.D. [facility] [id number] [facility] 2019-11-09 08:00:00 2019-11-09 08:00:00 Appointment; SHAWN WANG M.D. NASSIF, JULIA, M.D. [facility], [address] [id number] [facility] 2019-10-11 08:15:00 2019-10-11 08:15:00 Appointment; DHRUV NAVARRO M.D. SATTAR, BEENA, M.D. [facility] [id number] [facility] 2019-07-09 08:15:00 2019-07-09 08:15:00 Appointment; DHRUV NAVARRO M.D. SATTAR, BEENA, M.D. [facility] [id number] [facility] 2019-06-15 08:00:00 2019-06-15 08:00:00 Appointment; DHRUV NAVARRO M.D. SATTAR, BEENA, M.D. [facility] [id number] [facility] 2019-05-24 06:27:00 2019-05-24 06:27:00 [id number] [facility] 2019-05-20 10:15:00 2019-05-20 10:15:00 Appointment; LUBA STEIN M .D. MEEKS, EVAN, M.D. [facility] Orthopedics [facility] [id number] [facility] 2019-05-11 11:15:00 2019-05-11 11:15:00 Appointment; WALI DIXON P.A. CAMPOS, BERTHA, P.A. [facility] [id number] [facility] 2019-05-11 08:00:00 2019-05-11 08:00:00 Appointment; SHAWN WANG M.D. NASSIF, JULIA, M.D. [facility], [address] [id number] [facility] 2019-05-05 13:20:00 2019-05-05 13:20:00 Appointment; CONRADO GUAN M.D. NUGENT, ELIZABETH, M.D. [facility] Gynecologic Oncology [facility] [id number] [facility] 2019-04-13 08:15:00 2019-04-13 08:15:00 Appointment; DHRUV NAVARRO M.D. SATTAR, BEENA, M.D. [facility] [id number] [facility] 2019-04-09 08:15:00 2019-04-09 08:15:00 Appointment; DHRUV NAVARRO M.D. SATTAR, BEENA, M.D. [facility] [id number] [facility] 2019-03-30 08:00:00 2019-03-30 08:00:00 Appointment; DHRUV NAVARRO M.D. SATTAR, BEENA, M.D. [facility] [id number] [facility] 2019-03-11 10:15:00 2019-03-11 10:15:00 Appointment; LUBA STEIN M .D. MEEKS, EVAN, M.D. [facility] Orthopedics [facility] [id number] [facility] 2019-02-02 08:00:00 2019-02-02 08:00:00 Appointment; WAQAR WHITNEY RD WRIGHT, TISH, RD [facility] [id number] [facility] 2019-01-12 08:00:00 2019-01-12 08:00:00 Appointment; SHAWN WANG M.D. NASSIF, JULIA, M.D. [facility] [address] [id number] [facility] 2018-12-28 09:00:00 2018-12-28 09:00:00 Appointment; DHRUV NAVARRO M.D. SATTAR, BEENA, M.D. [facility] [id number] [facility] 2018-12-10 10:15:00 2018-12-10 10:15:00 Appointment; EMILLUBA FAIRBANKS M .D. MEEKS, EVAN, M.D. [facility] [place] [id number] [facility] 2018-12-09 08:00:00 2018-12-09 08:00:00 Appointment; DHRUV NAVARRO M.D. SATTAR, BEENA, M.D. [facility] [id number] [facility] 2018-12-08 08:00:00 2018-12-08 08:00:00 Appointment; DHRUV NAVARRO M.D. SATTAR, BEENA, M.D. [facility] [id number] [facility] 2018-11-06 08:00:00 2018-11-06 08:00:00 Appointment; CYNDY VILLAR M.D. KOSHELEV, MISHA, M.D. [facility] [id number] [facility] 2018-10-29 14:45:00 2018-10-29 14:45:00 Appointment; LUBA STEIN M .D. MEEKS, EVAN, M.D. [facility] [place] [id number] [facility] 2018-10-28 08:30:00 2018-10-28 08:30:00 Appointment; SHAWN WANG M.D. NASSIF, JULIA, M.D. [facility] [address] [id number] [facility] 2018-10-27 08:30:00 2018-10-27 08:30:00 Appointment; LUBA STEIN M .D. MEEKS, EVAN, M.D. [facility] [id number] [facility] 2018-10-01 11:15:00 2018-10-01 11:15:00 Appointment; LUBA STEIN M .D. MEEKS, EVAN, M.D. [facility] [place] [id number] [facility] 2018-09-22 10:30:00 2018-09-22 10:30:00 Appointment; LUBA STEIN M .D. MEEKS, EVAN, M.D. [facility] [place] [id number] [facility] 2018-09-14 07:00:00 2018-09-14 07:00:00 Appointment; LUBA STEIN M .D. MEEKS, EVAN, M.D. [facility] Orthopedics [facility] [id number] [facility] 2018-09-10 08:45:00 2018-09-10 08:45:00 Appointment; LUBA STEIN M .D. MEEKS, EVAN, M.D. [facility] Orthopedics [facility] [id number] [facility] 2018-09-02 08:00:00 2018-09-02 08:00:00 Appointment; DHRUV NAVARRO M.D. SATTAR, BEENA, M.D. [facility] [id number] [facility] 2018-08-19 14:00:00 2018-08-19 14:00:00 Appointment; CECILIA STILL D.O. EKHAESE, OBONORUMA, D.O. [facility] [id number] [facility] 2018-08-05 08:30:00 2018-08-05 08:30:00 Appointment; SHAWN WNAG M.D. NASSIF, JULIA, M.D. [facility] [address] [id number] [facility] 2018-07-23 08:15:00 2018-07-23 08:15:00 Appointment; DHRUV NAVARRO M.D. SATTAR, BEENA, M.D. [facility] [id number] [facility] [place] [facility] 2018-07-08 11:30:00 2018-07-08 11:30:00 Appointment; DHRUV NAVARRO M.D. SATTAR, BEENA, M.D. [facility] [id number] [facility] 2018-06-10 08:00:00 2018-06-10 08:00:00 Appointment; DHRUV NAVARRO M.D. SATTAR, BEENA, M.D. [facility] [id number] [facility] 2018-05-20 09:00:00 2018-05-20 09:00:00 Appointment; SHAWN WANG M.D. NASSIF, JULIA, M.D. [facility] [address] [id number] [facility] 2018-04-01 11:20:00 2018-04-01 11:20:00 Appointment; CONRADO GUAN M.D. NUGENT, ELIZABETH, M.D. [facility] Gynecologic Oncology at [facility] [id number] [facility] 2018-02-13 10:30:00 2018-02-13 10:30:00 Appointment; SHAWN WANG M.D. NASSIF, JULIA, M.D. [facility] [address] [id number] [facility] 2017-12-10 08:00:00 2017-12-10 08:00:00 Appointment; DHRUV NAVARRO M.D. SATTAR, BEENA, M.D. [facility] [id number] [facility] 2017-12-05 08:30:00 2017-12-05 08:30:00 Appointment; CYNDY VILLAR M.D. KOSHELEV, MISHA, M.D. [facility] [address] [id number] [facility] 2017-10-24 13:00:00 2017-10-24 13:00:00 Appointment; CYNDY VILLAR M.D. KOSHELEV, MISHA, M.D. [facility] [address] [id number] [facility] 2017-10-16 08:30:00 2017-10-16 08:30:00 Appointment; DHRUV NAVARRO M.D. SATTAR, BEENA, M.D. [facility] [id number] [facility] 2017-08-21 10:00:00 2017-08-21 10:00:00 Appointment; DHRUV NAVARRO M.D. SATTAR, BEENA, M.D. [facility] [id number] [facility] 2017-08-06 09:00:00 2017-08-06 09:00:00 Appointment; CONRADO GUAN M.D. NUGENT, ELIZABETH, M.D. [facility] UTP [id number] [facility] 2017-07-09 08:30:00 2017-07-09 08:30:00 Appointment; DHRUV NAVARRO M.D. SATTAR, BEENA, M.D. [facility] UTP [id number] [facility] 2017-06-10 15:00:00 2017-06-10 15:00:00 Appointment; Oscar Swift M.D. Quesada, Jorge, M.D. [facility]TP [id number] [facility] 2017-05-28 08:30:00 2017-05-28 08:30:00 Appointment; DHRUV NAVARRO M.D. SATTAR, BEENA, M.D. [facility] [id number] [facility] 2017-02-13 14:30:00 2017-02-13 14:30:00 Appointment; DHRUV NAVARRO M.D. SATTAR, BEENA, M.D. [facility] [id number] [facility] 2017-02-04 08:00:00 2017-02-04 08:00:00 Appointment; DHRUV NAVARRO M.D. SATTAR, BEENA, M.D. [facility] UTP [id number] [facility] 2016-12-12 15:15:00 2016-12-12 15:15:00 Appointment; BABAK ANTONY M.D. HUANG, EDDIE, M.D. [facility] UTP [id number] [facility] 2016-12-03 09:30:00 2016-12-03 09:30:00 Appointment; DHRUV NAVARRO M.D. SATTAR, BEENA, M.D. [facility] UTP [id number] [facility] 2016-11-19 15:00:00 2016-11-19 15:00:00 Appointment; DIONE SALCEDO M.D. CATALANO, MARC, M.D. [facility] UTP [id number] [facility] 2016-11-14 15:30:00 2016-11-14 15:30:00 Appointment; BABAK ANTONY M.D. HUANG, EDDIE, M.D. [facility] UTP [id number] [facility] 2016-10-31 09:00:00 2016-10-31 09:00:00 Appointment; DHRUV NAVARRO M.D. SATTAR, BEENA, M.D. [facility] [id number] [facility] Results Test Description Test Time Test Comments Results Result Comments Source CT ABDOMEN/PELVIS WO 2020-04-18 16:21:00 [place] [id number] [place] [address] Patient Name: LIBBY BAILEY MR #: [id number] : 1965 Age/Sex: 54/F Req #: [id number] Adm Physician: Ordered by: ANTOINETTE LI MD Report #: [id number] Location: ER Room/Bed: Procedure: [id number] CT/CT ABDOMEN/PELVIS WO Exam Date: 04/18/20 Exam Time: 1550 REPORT STATUS: Signed EXAM: CT Abdomen and Pelvis WITHOUT intravenous contrast INDICATION: Left flank pain COMPARISON: KUB 03/30/2020 TECHNIQUE: Abdomen and pelvis were scanned utilizing a multidetector helical scanner from the lung base to the pubic symphysis without administration of IV contrast. Coronal and sagittal reformations were obtained. IV CONTRAST: None ORAL CONTRAST: None COMPLICATIONS: None RADIATION DOSE: Total DLP: 303 mGy*cm Dose modulation, iterative reconstruction, and/or weight based adjustment of the mA/kV was utilized to reduce the radiation dose to as low as reasonably achievable. FINDINGS: LOWER THORAX: Normal. HEPATOBILIARY: No focal hepatic lesions. The gallbladder appears unremarkable. SPLEEN: No splenomegaly. PANCREAS: No focal masses or ductal dilatation. ADRENALS: No adrenal nodules. KIDNEYS/URETERS: 4 mm left mid ureteral calculus with associated moderate left hydroureteronephrosis. Additional 5 mm left upper pole and left lower pole renal calculi. No right-sided calculi. Bilateral renal cysts measure up to 3.5 cm on the right and 2.6 cm on the left. PELVIC ORGANS/BLADDER: Unremarkable. PERITONEUM / RETROPERITONEUM: No free air or fluid. LYMPH NODES: Left internal iliac chain lymphadenopathy measures up to 4.5 x 2.3 cm. VESSELS: Unremarkable. GI TRACT: No abnormal bowel thickening. No bowel obstruction. Normal appendix. BONES AND SOFT TISSUES: No acute osseous injury. No suspicious lytic or blastic lesions. IMPRESSION: 4 mm left mid ureteral calculus with associated moderate left hydroureteronephrosis. Additional 5 mm left upper and lower pole renal calculi. No right renal calculi. Bilateral renal cysts. Left internal iliac lymphadenopathy, possibly reactive. Attention on follow-up imaging is recommended. Signed by: Daisy Ryan MD on 04/18/2020 4:27 PM Dictated By: DAISY RYAN MD 26 Transcribed By: ISAÍAS on 04/18/201626 COPY TO: ANTOINETTE LI MD Blood leukocytes automated count (number/volume) 2020-04-18 15:40:00 Test Item White Blood Count (test code = 6690-2) 11.39 4.8-10.8 [facility] automated count (number/volume)2020-04-18 15:40:00* Test Item Value Reference Range Interpretation Comments Red Blood Count (test code = 789-8) 4.94 3.6-5.1 [facility] hemoglobin measurement (moles/volume)2020-04-18 15:40:00* Test Item Value Reference Range Interpretation Comments Hemoglobin (test code = 21773-6) 15.1 12.0-16.0 [facility]wall[facility] blood hematocrit (volume fraction)2020-04-18 15:40:00* Test Item Value Reference Range Interpretation Comments Hematocrit (test code = 4544-3) 44.6 34.2-44.1 [facility]wall[facility] erythrocyte mean corpuscular zspzmj4763-42-32 15:40:00* Test Item Value Reference Range Interpretation Comments Mean Corpuscular Volume (test code = 787-2) 90.3 81-99 [facility]wall[facility] erythrocyte mean corpuscular hemoglobin (mass per erythrocyte)2020-04-18 15:40:00* Test Item Value Reference Range Interpretation Comments Mean Corpuscular Hemoglobin (test code = 785-6) 30.6 28-32 [facility]wallAutom[facility] erythrocyte mean corpuscular hemoglobin concentration measurement (mass/volume)2020-04-18 15:40:00* Test Item Value Reference Range Interpretation Comments Mean Corpuscular Hemoglobin Concent (test code = 786-4) 33.9 31-35 [facility] RockwallRDW PfaWz-Ufl9306-20-14 15:40:00* Test Item Value Reference Range Interpretation Comments Red Cell Distribution Width (test code = 12018-7) 13.3 11.7 -14.4 [facility]wallAutom[facility] blood platelet count (count/volume)2020-04-18 15:40:00* Test Item Value Reference Range Interpretation Comments Platelet Count (test code = 777-3) 194 140-360 [facility]wallAutom[facility] blood segmented neutrophil count as percentage of total kreqpzkdhx5284-64-01 15:40:00* Test Item Value Reference Range Interpretation Comments Neutrophils (%) (Auto) (test code = 53389-0) 72.4 38.7-80.0 [facility]wallAutom[facility] blood lymphocyte count as percentage ot total stwnaaegjg9570-52-67 15:40:00* Test Item Value Reference Range Interpretation Comments Lymphocytes (%) (Auto) (test code = 736-9) 19.0 18.0-39.1 [facility]wallAutom[facility] blood monocyte count as percentage of total ygsteraonr4735-67-81 15:40:00* Test Item Value Reference Range Interpretation Comments Monocytes (%) (Auto) (test code = 5905-5) 7.3 4.4-11.3 [facility]wallAutom[facility] blood eosinophil count as percentage of total yomkycrciu3501-86-04 15:40:00* Test Item Value Reference Range Interpretation Comments Eosinophils (%) (Auto) (test code = 713-8) 0.4 0.0-6.0 [facility]wallAutom[facility] blood basophil count as percentage of total rqqgzosuje1659-66-91 15:40:00* Test Item Value Reference Range Interpretation Comments Basophils (%) (Auto) (test code = 706-2) 0.5 0.0-1.0 [facility] RockwallFluoroscopic procedure less than one hour bxdsbouw0845-41-92 15:40:00* Test Item Value Reference Range Interpretation Comments IM GRANULOCYTES % (test code = IM GRANULOCYTES %) 0.4 0.0- 1.0 [facility]wallAutom[facility] blood neutrophil count 2020-04-18 15:40:00* Test Item Value Reference Range Interpretation Comments Neutrophils # (Auto) (test code = 751-8) 8.3 2.1-6.9 [facility]wallBlood lymphocytes count (number/volume) 2020-04-18 15:40:00* Test Item Value Reference Range Interpretation Comments Lymphocytes # (Auto) (test code = 96738-7) 2.2 1.0-3.2 [facility]wallBlood monocytes automated count (number/volume)2020-04-18 15:40:00* Test Item Value Reference Range Interpretation Comments Monocytes # (Auto) (test code = 742-7) 0.8 0.2-0.8 [facility]wallAutom[facility] blood eosinophil count 2020-04-18 15:40:00* Test Item Value Reference Range Interpretation Comments Eosinophils # (Auto) (test code = 711-2) 0.0 0.0-0.4 [facility]wallAutomated blood basophil count (count/volume)2020-04-18 15:40:00* Test Item Value Reference Range Interpretation Comments Basophils # (Auto) (test code = 704-7) 0.1 0.0-0.1 [facility] RockwallFluoroscopic procedure less than one hour xyvxnmsq0695-29-25 15:40:00* Test Item Value Reference Range Interpretation Comments Absolute Immature Granulocyte (auto (riri t code = Absolute Immature Granulocyte (auto) 0.05 0-0.1 [facility] RockwallProthrombin time (PT) in platelet poor plasma by coagulation hoksa5984-11-36 15:40:00* Test Item Value Reference Range Interpretation Comments Prothrombin Time (test code = 5902-2) 11.6 11.9-14.5 [facility] RockwallINR in Platelet poor plasma by Coagulation vcixc4697-79-30 15:40:00* Test Item Value Reference Range Interpretation Comments Prothromb Time International Ratio (test code = 6301-6) 0.81 Oral Anticoagulant Therapy INR Values:1. Low Intensity Therapy 1.5 - 2.02 . Moderate Intensity Therapy 2.0 - 3.03. High Intensity Therapy(1) 2.5 - 3. 54. High Intensity Therapy(2) 3.0 - 4.05. Panic Value INR > 5.0 [facility] RockwallActivated partial thromboplastin time (aPTT) in platelet poor plasma by coagulation zsvmj2731-99-63 15:40:00* Test Item Value Reference Range Interpretation Comments Activated Partial Thromboplast Time (test code = 81272-2) 22.4 23.8-35.5 NO CLOT DETECTED [facility] or plasma sodium measurement (moles/volume)2020-04-18 15:40:00* Test Item Value Reference Range Interpretation Comments Sodium Level (test code = 2951-2) 141 136-145 [facility]landserum or plasma potassium measurement (moles/volume)2020-04-18 15:40:00* Test Item Value Reference Range Interpretation Comments Potassium Level (test code = 2823-3) 3.6 3.5-5.1 [facility]land[facility] or plasma chloride measurement (moles/volume)2020-04-18 15:40:00* Test Item Value Reference Range Interpretation Comments Chloride Level (test code = 2075-0) 104 98-107 [facility]landserum or plasma carbon dioxide, total measurement (moles/volume)2020-04-18 15:40:00* Test Item Value Reference Range Interpretation Comments Carbon Dioxide Level (test code = 2028-9) 26 22-29 [facility]land[facility] or plasma anion ikp9517-86-63 15:40:00* Test Item Value Reference Range Interpretation Comments Anion Gap (test code = 58536-8) 14.6 8-16 [facility] or plasma urea nitrogen measurement (mass/volume)2020-04-18 15:40:00* Test Item Value Reference Range Interpretation Comments Blood Urea Nitrogen (test code = 3094-0) 14 7-26 [facility] or plasma creatinine measurement (mass/volume)2020-04-18 15:40:00* Test Item Value Reference Range Interpretation Comments Creatinine (test code = 2160-0) 0.90 0.57-1.11 [facility] or plasma urea nitrogen/creatinine mass fpicp9826-09-38 15:40:00* Test Item Value Reference Range Interpretation Comments BUN/Creatinine Ratio (test code = 3097-3) 16 6-25 [facility]wallEstimated glomerular filtration rate (GFR) plhfmjcnoisgq8476-39-84 15:40:00* Test Item Value Reference Range Interpretation Comments Estimat Glomerular Filtration Rate (test code = 408174279) > 60 >60 Ranges were taken from the National Kidney Disease Education Program and the [facility] Foundation literature.Reference ranges:60 or greater: Sdeudp84-13 ( for 3 consecutive months): Chronic kidney disease 15 or less: Kidney failureTexas Health Presbyterian Hospital of RockwallGlucose bilvgfzywmk4884-86-35 15:40:00* Test Item Value Reference Range Interpretation Comments Glucose Level (test code = LUN4832) 127 74-118 [facility]land[facility] or plasma calcium measurement (mass/volume)2020-04-18 15:40:00* Test Item Value Reference Range Interpretation Comments Calcium Level (test code = 62499-4) 9.8 8.4-10.2 [facility] RockwallUrine color nphruzesvvbok6230-62-41 15:20:00* Test Item Value Reference Range Interpretation Comments Urine Color (test code = 5778-6) YELLOW YELLOW [facility] RockwallUrine swrxhix2546-19-88 15:20:00* Test Item Value Reference Range Interpretation Comments Urine Clarity (test code = 93127-8) SL CLOUDY CLEAR [facility]landspecific gravity of Urine by Test strip 2020-04-18 15:20:00* Test Item Value Reference Range Interpretation Comments Urine Specific Jayess (test code = 5811-5) 1.025 1.010-1.02 5 [facility] RockwallUrine pH measurement by automated test smgyh8196-46-11 15:20:00* Test Item Value Reference Range Interpretation Comments Urine pH (test code = 19472-8) 6 5-7 [facility] RockwallUrine leukocyte esterase detection by chsjhyyc4702-91-64 15:20:00* Test Item Value Reference Range Interpretation Comments Urine Leukocyte Esterase (test code = 5799-2) TRACE NEGATIVE [facility] RockwallUrine nitrite ljidqfpdv4358-41-37 15:20:00* Test Item Value Reference Range Interpretation Comments Urine Nitrite (test code = 14207-6) NEGATIVE NEGATIVE [facility]wallUrine protein measurement by test strip (mass/volume)2020-04-18 15:20:00* Test Item Value Reference Range Interpretation Comments Urine Protein (test code = 5804-0) 1+ NEGATIVE [facility] RockwallUrine glucose lnghzngmc4094-82-60 15:20:00* Test Item Value Reference Range Interpretation Comments Urine Glucose (UA) (test code = 2349-9) NEGATIVE NEGATIVE [facility] RockwallUrine ketones detection by automated test fauow9390-69-01 15:20:00* Test Item Value Reference Range Interpretation Comments Urine Ketones (test code = 33058-5) 2+ NEGATIVE [facility] RockwallUrine urobilinogen measurement by test strip (mass/volume)2020-04-18 15:20:00* Test Item Value Reference Range Interpretation Comments Urine Urobilinogen (test code = 68379-2) 0.2 0.2-1 [facility]wallUrine total bilirubin measurement (mass/volume)2020-04-18 15:20:00* Test Item Value Reference Range Interpretation Comments Urine Bilirubin (test code = 1978-6) NEGATIVE NEGATIVE [facility] RockwallUrine erythrocytes dmphdktqm1167-93-10 15:20:00* Test Item Value Reference Range Interpretation Comments Urine Blood (test code = 24744-3) MODERATE NEGATIVE [facility] RockwallAutomated urine sediment leukocyte count by microscopy (number/high power field)2020-04-18 15:20:00* Test Item Value Reference Range Interpretation Comments Urine WBC (test code = 5821-4) 6-10 0-5 [facility] RockwallErythrocytes detection in urine sediment by light vzriumnxuh9235-21-99 15:20:00* Test Item Value Reference Range Interpretation Comments Urine RBC (test code = 99528-1) 11-20 0-5 [facility] RockwallBacteria detection in urine sediment by light wvhkotoezk6619-16-81 15:20:00* Test Item Value Reference Range Interpretation Comments Urine Bacteria (test code = 21391-7) MODERATE NONE [facility] RockwallEpithelial cells detection in urine sediment by light wkscokbzjb5173-75-15 15:20:00* Test Item Value Reference Range Interpretation Comments Urine Epithelial Cells (test code = 72108-7) MODERATE NONE [facility] RockwallXR Abdomen 1 Jd8161-65-61 10:29:29Hm Interface, Radiology Results 04/14/2020 10:32 AM CDTEXAMINATION: XR ABDOMEN 1 VWCLINICAL HISTORY: KUB COMPARISON: None.IMPRESSION:There is a 9.4 mm calcification overlying the left kidney. There several nonspecific calcifi cations within the pelvis. The bowel gas pattern is nonspecific. There are no ac atka osseous abnormalities.[facility]-[id number] and approved by radiology resid ent/fellow: Roseline Walters, Susana Jorge M.D., personally reviewed the images and resident's/fellow's findings and agree with the final report.Dylan BrinkMbsgbhwymNfauwt4999-87-84 10:10:53MaStephane kuo 04/14/2020 10:11 AMAirwayPerformed by: Stephane AguayoAuthorized by: Isabel Echevarria MD Location: ORUrgency: ElectiveDifficult Airway: No Anesthesiologist: Isabel Echevarria, HELDEResident/RECRUITMENT DIRECTOR/AA: Stephane AguayoPerformed by: resident/RECRUITMENT DIRECTOR/AAPreoxygenated with 100% O2: Yes C-spine Precautions Maintained Throughout: Yes Mask Ventilation: Not attemptedFinal Airway Type: Supraglottic airwayFinal LMA: UniqueLMA Size: 4Number of Attempts at Approach: Rosie Gill [id number] 09:20:32* Test Item Value Reference Range Interpretation Comments POC glucose (test code = 32433-2) 94 mg/dL 65-99 Distribution Operations Supervisor Name: Inocencio Ovalles ID: [id number] [facility]-1VIEW (KUB)2020-03-30 08:54:00 [facility] [address] [place] [address] Patient Name: LIBBY BAILEY MR #: [id number] : 1965 Age/Sex: 54/F Req #: [id number] Adm Physician: Ordered by: FABIAN CASAS MD Report #: [id number] Location: [facility] Room/Bed: Procedure: [id number] DX/ABDOMEN-1 VIEW (KUB) Exam Date: 03/30/20 Exam Time: 0735 REPORT STATUS: Signed Exam: KUB - 2 v iews Indication: Renal calculus Comparison: Multiple prior KUBs of 01/04 and 04/22/2018, renal ultrasound 02/05/2019 Findings: 8 mm calcifi c density overlying the upper pole of the left kidney may represent a renal ca lculus versus intraluminal bowel content. No additional radiographically appar ent urinary calculi. Unchanged clips in the pelvis. No acute osseous injury. Impression: 8 mm calcific density overlying the upper pole of the left kid blair may represent renal calculus versus intraluminal bowel content. Lia d by: Daisy Ryan MD on 03/30/2020 8:56 AM Dictated By: DAISY RYAN MD Ronel ctronically Signed By: DAISY RYAN MD on 03/30/20855 Transcribed By: ISAÍAS willis 03/30/20855 COPY TO: FABIAN CASAS MD [ON LICENSE OF [facility]] VITAMIN B12 2019-12-08 08:00:01* Test Item Value Reference Range Interpretation Comments Vitamin B12 Level (test code = 2132-9) 361 pg/ml 254-1320 [facility][ON LICENSE OF [facility]] FOLATE, [id number] 08:00:01* Test Item Value Reference Range Interpretation Comments Folate Level (test code = 2284-8) 20.5 ng/ml >=3.0 [facility][] Methylmalonic Acid and Udjdlfkspkcl8749-25-62 08:00:01* Test Item Value Reference Range Interpretation Comments Methylmalonic Acid Quantitative (test code = Methylmal onic Acid Quantitative) 159 nmol/L 0-378 Homocysteine Total (test code = Homocysteine Total) 11.3 umol/L 0. 0-14.5 Please note reference interval change [facility][ON LICENSE OF [facility]] TSH, 3RD GENERATION W/REFLEX TO FT4 2019-10-25 08:16:01* Test Item Value Reference Range Interpretation Comments TSH (test code = 98275-6) 1.630 {uIU/ml} 0.360-3.740 [facility][ON LICENSE OF [facility]] CBC (INCLUDES DIFF/PLT)2019-10-25 08:16:00* Test Item Value Reference Range Interpretation Comments WBC (test code = 6690-2) 4.8 {K/CMM} 3.7-10.4 RBC (test code = 789-8) 4.82 {M/CMM} 4.20-5.40 Hgb (test code = 718-7) 15.1 g/dl 12.0-16.0 Hct (test code = 98982-7) 46.4 % 36.0-48.0 MCV (test code = 787-2) 96.3 fL 80.0-98.0 MCH; Above High Threshold (test code = 785-6) 31.3 pg 27.0-31. 0 MCHC (test code = 786-4) 32.5 g/dl 32.0-36.0 RDW (test code = 788-0) 13.8 % 11.5-14.5 Platelet (test code = 48189-5) 159 {K/CMM} 133-450 Mean Platelet Volume; Above High Threshold (test code = 3262 3-1) 11.0 fL 7.4-10.4 [facility][ON LICENSE OF [facility]] [id number] 08:16:00* Test Item Value Reference Range Interpretation Comments Segmented Neutrophils; Below Low Threshold (test code = 2650 5-8) 43.0 % 45.0-75.0 Monocytes (test code = 40808-5) 6.0 % 2.0-12.0 Lymphocytes; Above High Threshold (test code = 45433-8) 49.0 % 20.0-40.0 Eosinophils (test code = 88991-9) 1.7 % 0.0-4.0 Basophils (test code = 706-2) 0.3 % 0.0-1.0 Segs-Bands # (test code = 75614-4) 2.1 {K/CMM} 1.5-8.1 Lymphocytes # (test code = 90569-8) 2.3 {K/CMM} 1.0-5.5 Monocytes # (test code = 67899-2) 0.3 {K/CMM} 0.0-0.8 Eosinophils # (test code = 12960-8) 0.1 {K/CMM} 0.0-0.5 [facility][ON LICENSE OF [facility]] CMP [id number] 08:16:00* Test Item Value Reference Range Interpretation Comments Sodium Level (test code = 2951-2) 143 {mEq/l} 135-145 Potassium Level (test code = 2823-3) 4.3 {mEq/l} 3.5-5.1 Chloride Level (test code = 2075-0) 109 {mEq/l} 95-109 Carbon Dioxide (test code = 2027-9) 27 {mEq/l} 24-32 AGAP (test code = 37051-2) 11.3 {mEq/l} 10.0-20.0 Glucose Lvl; Above High Threshold (test code = 2345-7) 109 mg/dl 70-99 Adult reference range values reflect the clinical guidelinesof the [place] Diabetes Association. Creatinine Lvl (test code = 2160-0) 0.90 mg/dl 0.50-1.40 Blood Urea Nitrogen (test code = 3094-0) 13 mg/dl 7-22 BUN/Creatinine Ratio (test code = 3097-3) 14 6-25 Total Protein (test code = 2885-2) 8.0 g/dl 6.4-8.4 Albumin Lvl (test code = 1751-7) 4.5 g/dl 3.5-5.0 Globulin (test code = 60753-6) 3.5 g/dl 2.7-4.2 A/G Ratio (test code = 1759-0) 1.3 0.7-1.6 Calcium Level Total (test code = 06782-1) 9.8 mg/dl 8.5-10.5 ALT (test code = 1743-4) 36 u/l 0-65 AST (test code = 30696-1) 23 u/l 0-37 Alk Phos (test code = 1783-0) 86 u/l 39-136 The pediatric reference ranges for this test represent a CLSI-basedtransference of the CALIPER database of pediatric reference intervals to the[facility] [place] [employer] analyzer (Clinical Biochemistry 46 (2013): 3730-5186). [facility] [employer] has not internally validated these referenceranges and therefore they should be used only in the context of a thoroughclinical assessment. Bili Total (test code = 1975-2) 0.7 mg/dl 0.2-1.3 eGFR (test code = 58890-5) 73 {ML/MIN/1.7} The eGFR is calculated using the CKD-EPI formula. In most young, healthyindividuals the eGFR will be >90 mL/min/1.73m2. The eGFR declines with age. AneGFR of 60-89 may be normal in some populations, particularly the elderly, forwhom the CKD-EPI formula has not been extensively validated. Use of the eGFR isnot recommended in the following populations:Individuals with unstable creatinine concentrations, including patients and those with serious co-morbid conditions.Patients with extremes in muscle mass or diet.The data above are obtained from the National Kidney Disease Education Program(NKDEP) which additionally recommends that when the eGFR is used in patientswith extremes of body mass index for purposes of drug dosing, the eGFR shouldbe multiplied by the estimated BMI. [facility][ON LICENSE OF [facility]] [id number] 08:16:00* Test Item Value Reference Range Interpretation Comments Ferritin Lvl (test code = 2276-4) 70 ng/ml 5-204 [facility]] LIPID [id number] 08:16:00* Test Item Value Reference Range Interpretation Comments Chol (test code = 2093-3) 196 mg/dl <=199 Trig (test code = 2571-8) 83 mg/dl <=149 HDL Cholesterol (test code = 2085-9) 69 mg/dl >=61 CHD Risk; Below Low Threshold (test code = 90449-8) 2.84 3. 90-5.80 LDL; Above High Threshold (test code = 32042-3) 110 mg/dl <=99 VLDL (test code = VLDL) 17 [facility][ON LICENSE OF [facility]] TSH, 3RD GENERATION W/REFLEX TO FT4 2019-10-25 08:16:00* Test Item Value Reference Range Interpretation Comments TSH (test code = 18777-3) 1.680 {uIU/ml} 0.360-3.740 [facility][ON LICENSE OF [facility]] HEMOGLOBIN [id number] 08:16:00* Test Item Value Reference Range Interpretation Comments Hemoglobin A1c; Above High Threshold (test code = 4548-4) 5.8 % <=5.6 [facility][O] Hemoglobin A1c (in office)2019-07-09 09:04:00 * Test Item Value Reference Range Interpretation Comments HEMOGLOBIN A1c; Normal (test code = 4548-4) 5.3 N [facility] Pelvis with Pelvis Transvaginal [id number] 06:57:00Patient Name: LIBBY MATTSON MEDRANODOB: 1965; Age: 53 years y/o FemaleMR: [id number]: Pelvis w Pelvis Transvaginal US 05/24/2019 6:57 CDTOrdering Physician: MD Thuy Guan, MDClinical Indication: - left ovarian cyst;Comparison: 02/18/2018Transabdominal and transvaginal pelvic ultrasound examTransabdominal study is quite limited. Uterus is not visualized. Within theleft adnexa is a 5.7 x 2.3 x 2.1 cm tubular fluid collection. Neither ovary isconclusively visualized.Additional transvaginal study was performed. Reason for transvaginal exam:Incomplete evaluation of uterus ovaries and adnexa by transabdominal imaging.The transvaginal images demonstrate right ovary measuring 1.5 x 1 x 1.7 cm.There is a 1.3 x 1.0 x 1.1 cm paraovarian cyst.Left ovary is not visualized. In the left adnexa is again noted a tubular fluidcollection or cystic structure measuring today approximately 5.5 x 2.3 x 2.2cm. It is minimally larger in volume since 02/18/2018.There is no additional adnexal mass or pathologic fluid evident.IMPRESSION: Post hysterectomy. Absent visualization of left ovary. 5.5 x 2.3 x 2.2 cm tubular fluid collection or cystic lesion in the leftadnexa is minimally increased in volume since 02/18/2018.1.3 cm right ovarian cyst is stable from previous exam.No additional new adnexal mass or pathologic fluid.SL: [id number]--Ibyz by: Yusuf Mike MDDictated Date/time: 05/24/19 15:48Electronically Signed by: Yusuf Mike MD 05/24/1915:53FINAL REPORTUnJordan [facility]] LIPID [id number] 08:05:00* Test Item Value Reference Range Interpretation Comments Chol; Above High Threshold (test code = 2093-3) 215 mg/dl <=199 Trig (test code = 2571-8) 96 mg/dl <=149 HDL Cholesterol (test code = 2085-9) 63 mg/dl >=61 CHD Risk; Below Low Threshold (test code = 87687-5) 3.41 3. 90-5.80 LDL; Above High Threshold (test code = 36231-9) 133 mg/dl <=99 VLDL (test code = VLDL) 19 [facility][ON LICENSE OF [facility]] TSH, 3RD GENERATION W/REFLEX TO FT4 2019-05-03 08:05:00* Test Item Value Reference Range Interpretation Comments TSH (test code = 42787-5) 2.640 {uIU/ml} 0.360-3.740 [facility][O] Hemoglobin A1c (in office)2019-04-09 08:26:00 * Test Item Value Reference Range Interpretation Comments HEMOGLOBIN A1c; Normal (test code = 4548-4) 5.6% N [facility][ON LICENSE OF [facility]] LIPID [id number] 00:00:00* Test Item Value Reference Range Interpretation Comments CHOLESTEROL, TOTAL (test code = 2093-3) TNP * Test not performed. * * No serum received. * HDL CHOLESTEROL (test code = 2085-9) TNP * Test not performed. * * No serum received. * TRIGLYCERIDES (test code = 2571-8) TNP * Test not performed. * * No serum received. * LDL-CHOLESTEROL (test code = 90104-7) TNP * Test not performed. * * No serum received. * CHOL/HDLC RATIO (test code = CHOL/HDLC RATIO) TNP * Test not performed. * * No serum received. * NON HDL CHOLESTEROL (test code = NON HDL CHOLESTEROL) TNP * Test not performed. * * No serum received. * [facility][Q] FECAL GLOBIN BY [id number] 00:00:00* Test Item Value Reference Range Interpretation Comments FECAL GLOBIN BY IMMUNOCHEMISTRY (test code = 83637-9) See Comment FECAL GLOBIN BY IMMUNOCHEMISTRY MICRO NUMBER: [id number] TEST STATUS: FINAL SPECIMEN SOURCE: INSURE (TM) FOBT TEST CARD SPECIMEN QUALITY: ADEQUATE RESULT: Not Detected [facility][H] Methylmalonic Acid and [id number] 08:30:01* Test Item Value Reference Range Interpretation Comments Methylmalonic Acid Quantitative (test code = Methylmal onic Acid Quantitative) 150 nmol/L 0-378 Homocysteine Total (test code = Homocysteine Total) 10.3 umol/L 0. 0-15.0 [facility]] CBC (INCLUDES DIFF/PLT)2019-04-02 08:30:00* Test Item Value Reference Range Interpretation Comments WBC (test code = 6690-2) 4.8 {K/CMM} 3.7-10.4 RBC (test code = 789-8) 4.57 {M/CMM} 4.20-5.40 Hgb (test code = 718-7) 14.9 g/dl 12.0-16.0 Hct (test code = 05742-8) 44.6 % 36.0-48.0 MCV (test code = 787-2) 97.5 fL 80.0-98.0 MCH; Above High Threshold (test code = 785-6) 32.5 pg 27.0-31. 0 MCHC (test code = 786-4) 33.4 g/dl 32.0-36.0 RDW (test code = 788-0) 13.1 % 11.5-14.5 Platelet (test code = 31558-3) 193 {K/CMM} 133-450 Mean Platelet Volume; Above High Threshold (test code = 3262 3-1) 11.1 fL 7.4-10.4 [facility][ON LICENSE OF [facility]] [id number] 08:30:00* Test Item Value Reference Range Interpretation Comments Segmented Neutrophils; Below Low Threshold (test code = 2650 5-8) 36.9 % 45.0-75.0 Monocytes (test code = 13033-2) 5.3 % 2.0-12.0 Lymphocytes; Above High Threshold (test code = 81359-8) 55.4 % 20.0-40.0 Eosinophils (test code = 84638-1) 2.2 % 0.0-4.0 Basophils (test code = 706-2) 0.2 % 0.0-1.0 Segs-Bands # (test code = 29533-9) 1.8 {K/CMM} 1.5-8.1 Lymphocytes # (test code = 57274-0) 2.7 {K/CMM} 1.0-5.5 Monocytes # (test code = 83420-6) 0.3 {K/CMM} 0.0-0.8 Eosinophils # (test code = 93541-3) 0.1 {K/CMM} 0.0-0.5 [facility][ON LICENSE OF [facility]] HEPATITIS B SURFACE ANTIBODY (QUANT) 2019-04-02 08:30:00* Test Item Value Reference Range Interpretation Comments Hepatitis B Surface Antibody (test code = 37966-0) <3.1 <=7 .4 <=7.4 mIU/mL--------Negative for Anti-HBs. Not immune to HBV infection.7.5-12.4 mIU/mL--Borderline for Anti-HBs and immune statusshould be further assessed by considering other factors suchas clinical status follow-up testing, associated risk factors,and the use of additional diagnostic information.>12.4 mIU/mL-------Positive for Anti-HBs. Immune to HBV infection [facility][ON LICENSE OF [facility]] BASIC METABOLIC PANEL [id number] 08:30:00* Test Item Value Reference Range Interpretation Comments Glucose Lvl; Above High Threshold (test code = 2345-7) 104 mg/dl 70-99 Adult reference range values reflect the clinical guidelinesof the [place] Diabetes Association. Blood Urea Nitrogen (test code = 3094-0) 13 mg/dl 7-22 Creatinine Lvl (test code = 2160-0) 0.80 mg/dl 0.50-1.40 Sodium Level (test code = 2951-2) 143 {mEq/l} 135-145 Potassium Level (test code = 2823-3) 3.9 {mEq/l} 3.5-5.1 Chloride Level; Above High Threshold (test code = 2075-0) 110 {mEq/ l} 95-109 Carbon Dioxide (test code = 2027-9) 32 {mEq/l} 24-32 AGAP; Below Low Threshold (test code = 49158-5) 4.9 {mEq/l} 10.0-2 0.0 Calcium Level Total (test code = 52979-3) 9.4 mg/dl 8.5-10.5 eGFR (test code = 95866-8) 84 {ML/MIN/1.7} The eGFR is calculated using the CKD-EPI formula. In most young, healthyindividuals the eGFR will be >90 mL/min/1.73m2. The eGFR declines with age. AneGFR of 60-89 may be normal in some populations, particularly the elderly, forwhom the CKD-EPI formula has not been extensively validated. Use of the eGFR isnot recommended in the following populations:Individuals with unstable creatinine concentrations, including patients and those with serious co-morbid conditions.Patients with extremes in muscle mass or diet.The data above are obtained from the National Kidney Disease Education Program(NKDEP) which additionally recommends that when the eGFR is used in patientswith extremes of body mass index for purposes of drug dosing, the eGFR shouldbe multiplied by the estimated BMI. [facility][ON LICENSE OF [facility]] [id number] 08:30:00* Test Item Value Reference Range Interpretation Comments Ferritin Lvl (test code = 2276-4) 49 ng/ml 5-204 [facility][ON LICENSE OF [facility]] HEPATIC FUNCTION [id number] 08:30:00* Test Item Value Reference Range Interpretation Comments Total Protein (test code = 2885-2) 7.3 g/dl 6.4-8.4 Albumin Lvl (test code = 1751-7) 4.3 g/dl 3.5-5.0 Bili Total (test code = 1974-) 0.5 mg/dl 0.2-1.3 Bilirubin Direct (test code = 1967-) 0.1 mg/dl 0.0-0.3 Bilirubin Indirect (test code = 1970-) 0.4 mg/dl 0.0-1.0 Alk Phos (test code = 1783-0) 74 u/l 39-136 AST (test code = 73331-7) 15 u/l 0-37 ALT (test code = 1743-4) 27 u/l 0-65 Globulin (test code = 85987-2) 3.0 g/dl 2.7-4.2 A/G Ratio (test code = 1759-0) 1.4 0.7-1.6 [facility]] IRON AND TOTAL IRON BINDING CAPACITY 2019-04-02 08:30:00* Test Item Value Reference Range Interpretation Comments Iron (test code = 2498-4) 69 ug/dL 30-160 % Satur Fe (test code = 2502-3) 23 % 12-57 TIBC (test code = 2500-7) 301 ug/dL 228-428 UIBC (test code = UIBC) 232 ug/dL 110-370 [facility][] HEPATITIS B SURFACE ANTIGEN W/REFL CONFIRM 2019-04-02 08:30:00* Test Item Value Reference Range Interpretation Comments Hepatitis B Surface Antigen (test code = 5195-3) Negative Negat ryan [facility][ON LICENSE OF [facility]] HEPATITIS C [id number] 08:30:00* Test Item Value Reference Range Interpretation Comments Hepatitis C Antibody (test code = 10092-0) Negative [facility][ON LICENSE OF [facility]] HEPATITIS A [id number] 08:30:00* Test Item Value Reference Range Interpretation Comments Hepatitis A IgM (test code = 93211-4) Negative Negative [facility][ON LICENSE OF [facility]] HEPATITIS A AB, [id number] 08:30:00* Test Item Value Reference Range Interpretation Comments Hepatitis A Total (test code = 67751-9) Positive Negative [facility] [id number] 10:14:00COMPLETE ULTRASOUND OF LEFT BREAST AND AXILLA: 02/17/2019CLINICAL: Abnormal mammogram, mammographic nodule/density. COMPARISON:Comparison is made to exams dated: 02/17/2019 mammogram - [facility], 02/08/2019 mammogram, 01/03/2018 mammogram, 01/02/2017mammogram - [facility], 09/07/2014 mammogram, and 03/28/2011ultrasound. TECHNIQUE: Color flow and real-time ultrasound of the left breast fourquadrants and axilla regions were performed. Ferrara scale images of thereal-time examination were reviewed. FINDINGS:There is a small benign oil cyst left breast at 11 o'clock that correlates withmammography. There also is a post surgical scar left breast at 6 o'clock thatcorrelates with mammography. Additionally, there are two small benign ovalshaped cysts with a circumscribed margin with internal echoes and posteriorenhancement left breast at 6 o'clock th at correlate with mammography. No abnormalities were seen sonographically in the left axilla. IMPRESSION: BENIGNRECOMMENDATION:There is no sonographic evidence of malignancy. Return to annual mammogram screening schedule is recommended.(03/2020) Theresults were reviewed with the patient. This exam was interpreted at [id number] for [facility]. Gaston fitzpatrickt/penrad:02/17/2019 10:36:31 Pin Chaser(s): Rowan Sanchez [facility] sent: BI-RADS 1/2 Ultrasound BI-RADS: 2 Benign--Read by: Gaston Mosquera MDDictated Date/time: 02/17/19 10:36Electronically Signed by: Gaston Mosquera MD 02/17/1910:36FINAL REPORTUnMoab [facility] Digital Mammo DX Uni w phill [id number] 09:48:00UNILATERAL LEFT DIGITAL DIAGNOSTIC MAMMOGRAM 3D/2D WITH CAD: 02/17/2019CLINICAL: /Abnormal Mammogram. Current study was evaluated with a Computer Aided Detection (CAD) system. COMPARISON:Comparison is made to exams dated: 02/08/2019 mammogram, 01/03/2018mammogram, 01/02/2017 mammogram - [facility], 09/07/2014 mammogram, 03/28/2011 mammogram, and 01/03/2011 mammogram. TECHNIQUE: Digital Kami ast Tomosynthesis was performed and utilized forInterpretation. Zouxiu Version 1.3 was utilized for computer aided detection. FINDINGS:The tissue of left breas t is heterogeneously dense, which could obscuredetection of small masses. There are benign calcifications in the left breast. There is a focal asymmetry in the left breast at 6 o'clock posterior depth. This is less prominent and correlates with the prior exam. No other significant masses or calcifications are seen in t he breast. IMPRESSION: INCOMPLETE: NEEDS ADDITIONAL IMAGING EVALUATIONRECOMMENDA TION:The focal asymmetry in the left breast resembles a post surgicalscar and is indeterminate. An ultrasound is recommended. The results were reviewed with th e patient. This exam was interpreted at [id number] for [facility] . SUMMARY:Ultrasound will be performed at this time; please see dedicated separa tereport. Gaston fitzpatrickt/penrad:02/17/2019 10:33:44 Imaging Technolo gist(s): [facility]clain [facility]: 0 I ndeterminate--Read by: Gaston Mosquera MDDictated Date/time: 02/17/19 10:33Electr onically Signed by: Gaston Mosquera MD 02/17/1910:33FINA L REPORTUnMoab [facility] Hospital Digital Mammo Screening Santy [id number] 2019-02-08 09:14:00BILATERAL DIGITAL SCREENING MAMMOGRAM WITH CAD: 02/08/2019CLINICAL: Z12.31 Encounter For Screening Mammogram For Malignant Neoplasm OfBreast/Z12.31 Encounter For Screening Mammogram For Malignant Neoplasm OfBreast. Current study was evaluated with a Computer Aided Detection (CAD) system. COMPARISON:Comparison is made to exams dated: 01/03/2018 mammogram, 01/02/2017mammogram - [facility], 09/07/2014 mammogram, 03/28/2011mammogram, and 01/03/2011 mammogram. TECHNIQUE: Mammographic views were obtained using digital acquisition. Currentstudy was also evaluated with a Computer Aided Detection (CAD) system.FINDINGS:The tissue of both breasts is heterogeneously dense, which could obscuredetection of small masses. There are benign calcifications in both breasts. There is an asymmetry in the left breast central to the nipple seen on thecraniocaudal view only 5 cm from the nipple. No other significant masses, calcifications, or other findings are seen ineither breast. IMPRESSION: INCOMPLETE: NEEDS ADDITIONAL IMAGING EVALUATI ONRECOMMENDATION:The asymmetry in the left breast is indeterminate. Diagnosticm ammography with possible ultrasound are recommended. A 3D diagnosticmammogram i s requested. This exam was interpreted at [id number] for GARCIA Caicedo, SL 15. SUMM SUDHEER:The staff from the [facility] with Navneet Garcia will contact the patient for these additional studies, and a supplementary reportwill be issued. Professional services are provided by the [facility] MElton A ndersonDivision of Diagnostic Imaging.Lucy Alva M.D. ms/penrad: 9 12:52:13 Pin Chaser(s): RT Cindy(Basil)(M), Navneet Saravia asadenaMammogram BI-RADS: 0 Indeterminate--Read by: Lucy Alva MDDictat ed Date/time: 02/08/19 12:52Electronically Signed by: Lucy Alva MD 02/09/1912:52FINAL REPORTUnJordan [facility] RENAL RETROPERITONEAL [id number] 10:38:00 [place] [address] Patient Name: LIBBY BAILEY MR #: [id number] : 1965 Age/Sex: 53/F Req #: [id number] Adm Physician: Ordered by: FABIAN CASAS MD Report #: [id number] Location: US Room/Bed: Procedure: [id number] U S/US RENAL RETROPERITONEAL COMP Exam Date: Exam Kye e: REPORT STATUS: Signed EXAM: Renal Ultrasound INDICATION: Renal cyst. COMPARISON: KUB 01/14/20. TECHNIQUE: Transverse and longitudinal images of the kidneys and bladde r were obtained. FINDINGS: Right Kidney: Length: Measures 11.9 x 6.1 x 5.5 cm. The renal cortex measures 1.4 cm. Appearance: Normal echo genicity. Collecting system: No hydronephrosis Stones: None Cyst/Mass: N o evidence of solid mass. There are simple appearing right-sided anechoic ophelia pelvic cysts, measuring up to 2.9 x 3.3 x 3.9 cm and 2.3 x 1.6 cm. Left Kid blair: Length: Measures 11.4 x 5.6 x 5.1 cm. The left renal cortex measures 1.5 cm. Appearance: Normal echogenicity. Collecting system: No hydronephrosis Stones: None Cyst/Mass: None Bladder: Unremarkable in appearance. B ilateral ureteral jets are present. The prevoid volume is 229 cc. No post void volume. IMPRESSION: Simple appearing right peripelvic cysts. No ev idence of hydronephrosis or renal stone. Signed by: Dr. Daxa Guillen MD on 02/05/2019 10:42 AM Dictated By: DAXA GUILLEN MD 1042 Transcribed By: ISAÍAS on 02/05/19 1042 CO PY TO: FABIAN CASAS MD ABDOMEN-1VIEW (KUB)2019-01-13 07:10:00 [place] [address] Patient Name: LIBBY BAILEY MR #: [id number] : 1965 Age/Sex: 53/F Req #: [id number] Adm Physician: Ordered by: FABIAN CASAS MD Report #: [id number] Location: [facility] Room/Bed: Procedure: [id number] D X/ABDOMEN-1VIEW (KUB) Exam Date: 01/13/19 Exam Time: 0656 REPORT STATUS: Signed E xam: Abdominal film Clinical History: Calculus of kidney Comparison: Abdominal radiograph 04/22/2018 DISCUSSION: The bowel gas pattern shows no d ilated, air-filled loops of bowel. No mass effect or organomegaly. No von picious calcifications are identified over the renal shadows or expected urete ral courses. Pelvic surgical clips versus tubal ligation devices. Regional skeletal structures are intact with mild degenerative disc changes of the lumb ar spine. IMPRESSION: No plain film evidence of urolithiasis. Signed by: Dr. Jess Fletcher M.D. on 01/13/2019 7:14 AM Dictated By : JESS FLETCHER MD 3 Transcribed By: ISAÍAS on 01/13/19713 COPY TO: FABIAN CASAS MD Liver [id number] 09:21:00EXAM: US ABDOMEN LIMITEDDATE: 12/29/2018 9:21 CDTINDICATION: - R94.5 Abnormal results of liver function studiesCOMPARISON: None.TECHNIQUE: Multiplanar grayscale and color Doppler ultrasound of the rightupper quadrant.FINDINGS:Liver:Craniocaudal length: 13.8 cm.Echogenicity: Mildly increased.Surface: Normal.Mass (size and location): None.Main portal vein:Caliber: 1.0 cm.Flow: Hepatopetal.Bile ducts:Common bile duct diameter: 0.4 cm.Intrahepatic ducts: Normal.Gallbladder:Gallstones: None.Gallbladder sludge: None.Gallbladder wall: 0.22 cm.Polyps/masses: N one.Pericholecystic fluid: None.Sonographic Barker sign: Absent.Pancreas: Partia lly obscured. No focal lesions.Spleen: Not evaluated.Right kidney:Size: 12.0 x 4 .9 x 5.4 cm.Cortical thickness: Normal.Hydronephrosis: Mild pelviectasis.Echogen icity: Normal.Calculi: None.Cysts/Masses: 2.5 x 2.5 x 2.8 cm anechoic cyst with thin incomplete septationin the interpolar region of the right kidney. No real estate intern al vascularity.Free fluid: None.IMPRESSION:1. Mild hepatic steatosis.2. Cyst i n the interpolar region of the right kidney with thin incompleteseptation.--Read by: Niko Cotter MDDictated Date/time: 12/29/18 13:04Electronically S igned by: Niko Cotter MD 12/29/1912:09FINAL REPORT [facility][ON LICENSE OF [facility]] TSH, 3RD GENERATION W/REFLEX TO FT4 2018-12-22 08:10:01* Test Item Value Reference Range Interpretation Comments TSH (test code = 50928-6) 1.220 {uIU/ml} 0.360-3.740 [facility][ON LICENSE OF [facility]] VITAMIN D, 1,25 DIHYDROXY LC/MS/[id number] 08:10:01* Test Item Value Reference Range Interpretation Comments Vitamin D 1,25 (OH)2 Total (test code = Vitamin D 1,25 (OH)2 Tot al) 60 pg/ml Reference Range:Adults: 21 - 65 Vitamin D2 1,25 (OH)2 (test code = Vitamin D2 1,25 (OH)2) 30 pg/ml Vitamin D3 1,25 (OH)2 (test code = Vitamin D3 1,25 (OH)2) 30 pg/ml Performed At: [facility] [address] [id number] Samuel H MD Ph:[phone] [facility][ON LICENSE OF [facility]] CBC (INCLUDES DIFF/PLT)2018-12-22 08:10:00* Test Item Value Reference Range Interpretation Comments WBC (test code = 6690-2) 5.6 {K/CMM} 3.7-10.4 RBC (test code = 789-8) 4.81 {M/CMM} 4.20-5.40 Hgb (test code = 718-7) 14.9 g/dl 12.0-16.0 Hct (test code = 19828-2) 46.5 % 36.0-48.0 MCV (test code = 787-2) 96.8 fL 80.0-98.0 MCH (test code = 785-6) 31.0 pg 27.0-31.0 MCHC (test code = 786-4) 32.1 g/dl 32.0-36.0 RDW (test code = 788-0) 13.8 % 11.5-14.5 Platelet (test code = 09818-3) 197 {K/CMM} 133-450 Mean Platelet Volume; Above High Threshold (test code = 3262 3-1) 10.6 fL 7.4-10.4 [facility][ON LICENSE OF [facility]] [id number] 08:10:00* Test Item Value Reference Range Interpretation Comments Segmented Neutrophils; Below Low Threshold (test code = 2650 5-8) 38.8 % 45.0-75.0 Monocytes (test code = 63598-8) 7.7 % 2.0-12.0 Lymphocytes; Above High Threshold (test code = 84487-9) 50.6 % 20.0-40.0 Eosinophils (test code = 56321-4) 2.4 % 0.0-4.0 Basophils (test code = 706-2) 0.5 % 0.0-1.0 Segs-Bands # (test code = 11639-8) 2.2 {K/CMM} 1.5-8.1 Lymphocytes # (test code = 28057-3) 2.8 {K/CMM} 1.0-5.5 Monocytes # (test code = 46841-3) 0.4 {K/CMM} 0.0-0.8 Eosinophils # (test code = 56664-0) 0.1 {K/CMM} 0.0-0.5 [facility][ON LICENSE OF [facility]] CMP [id number] 08:10:00* Test Item Value Reference Range Interpretation Comments Sodium Level (test code = 2951-2) 143 {mEq/l} 135-145 Potassium Level (test code = 2823-3) 4.1 {mEq/l} 3.5-5.1 Chloride Level (test code = 5-0) 105 {mEq/l} 95-109 Carbon Dioxide (test code = 2027-9) 28 {mEq/l} 24-32 AGAP (test code = 05061-5) 14.1 {mEq/l} 10.0-20.0 Glucose Lvl; Above High Threshold (test code = 2345-7) 116 mg/dl 70-99 Adult reference range values reflect the clinical guidelinesof the [place] Diabetes Association. Creatinine Lvl (test code = 2160-0) 0.70 mg/dl 0.50-1.40 Blood Urea Nitrogen (test code = 3094-0) 14 mg/dl 7-22 BUN/Creatinine Ratio (test code = 3097-3) 20 6-25 Total Protein (test code = 2885-2) 7.3 g/dl 6.4-8.4 Albumin Lvl (test code = 1751-7) 4.3 g/dl 3.5-5.0 Globulin (test code = 67003-0) 3.0 g/dl 2.7-4.2 A/G Ratio (test code = 1759-0) 1.4 0.7-1.6 Calcium Level Total (test code = 59983-4) 9.2 mg/dl 8.5-10.5 ALT; Above High Threshold (test code = 1743-4) 68 u/l 0-65 AST (test code = 41593-7) 31 u/l 0-37 Alk Phos (test code = 1783-0) 114 u/l 39-136 Bili Total (test code = 1974-) 0.5 mg/dl 0.2-1.3 eGFR (test code = 82709-4) 99 {ML/MIN/1.7} The eGFR is calculated using the CKD-EPI formula. In most young, healthyindividuals the eGFR will be >90 mL/min/1.73m2. The eGFR declines with age. AneGFR of 60-89 may be normal in some populations, particularly the elderly, forwhom the CKD-EPI formula has not been extensively validated. Use of the eGFR isnot recommended in the following populations:Individuals with unstable creatinine concentrations, including patients and those with serious co-morbid conditions.Patients with extremes in muscle mass or diet.The data above are obtained from the National Kidney Disease Education Program(NKDEP) which additionally recommends that when the eGFR is used in patientswith extremes of body mass index for purposes of drug dosing, the eGFR shouldbe multiplied by the estimated BMI. [facility][ON LICENSE OF [facility]] VITAMIN [id number] 08:10:00* Test Item Value Reference Range Interpretation Comments Vitamin B12 Level (test code = 2132-9) 333 pg/ml 254-1320 [facility][] LIPID PANEL WITH REFLEX TO DIRECT LDL 2018-12-22 08:10:00* Test Item Value Reference Range Interpretation Comments Chol; Above High Threshold (test code = 2093-3) 200 mg/dl <=199 Trig (test code = 2571-8) 137 mg/dl <=149 HDL Cholesterol; Below Low Threshold (test code = 2085-9) 57 mg/dl >=61 CHD Risk; Below Low Threshold (test code = 26342-0) 3.51 3. 90-5.80 LDL; Above High Threshold (test code = 02624-4) 116 mg/dl <=99 VLDL (test code = VLDL) 27 [facility][ON LICENSE OF [facility]] HEMOGLOBIN [id number] 08:10:00* Test Item Value Reference Range Interpretation Comments Hemoglobin A1c; Above High Threshold (test code = 4548-4) 6.2 % <=5.6 [facility][ON LICENSE OF [facility]] TSH, 3RD GENERATION W/REFLEX TO FT4 2018-10-26 08:00:01* Test Item Value Reference Range Interpretation Comments TSH; Above High Threshold (test code = 27680-1) 4.980 {uIU/ml} 0.36 0-3.740 [facility][ON LICENSE OF [facility]] T4, [id number] 08:00:01* Test Item Value Reference Range Interpretation Comments T4 Free (test code = 3024-7) 1.18 ng/dl 0.76-1.46 [facility][U] XRAY SHOULDER MIN 2 VWS RIGHT [id number] 08:39:00Images acquired, not reported on this accession number.[facility] wo contrast [id number] 07:53:00EXAM: Shoulder wo contrast MRIDATE: 08/14/2018 at 0746 hours.INDICATION: R22.31 Localized swelling, mass and lump, right upper limb.COMPARISON: Right humerus radiograph on 11/14/2016.TECHNIQUE: Axial, oblique coronal, and oblique sagittal MR images of the [facility].IV contrast: None.FINDINGS:LONG BICEPS TENDONThe biceps tendon is within the bicipital groove. Intermediate signal is seenat the intra- articular portion of the long head biceps tendon. No acute tear isidentifi ed.GLENOHUMERAL JOINTLabrum: Intermediate signal seen at the superior labrum at 12 o'clock, possiblyrepresenting mild degenerative change. No acute labral tear is identified. Noparalabral cysts.Cartilage: No focal defect.Ligaments: No gleno humeral or other ligamentous abnormality.Joint fluid: There is no glenohumeral j oint effusion.ROTATOR CUFF AND ASSOCIATED STRUCTURESRotator cuff:Supraspinatus: There is an acute, full-thickness tear of the anteriorsupraspinatus and measures 1.1 cm AP with 0.7 cm proximal retraction (sagittalimage 16, coronal image 10). Infraspinatus: Intact.Subscapularis: Intact.Teres Minor: Intact.Musculature: The re is no muscular tear, contusion, or atrophy.Bursa: There is a mild to moderate amount of subacromial/subdeltoid bursalfluid (coronal image 12).Acromioclavicul ar joint: There are moderate degenerative changes of theacromioclavicular joint. A type 2 acromion configuration is noted. There is noanterior or lateral acromi al downsloping.BONESNo fracture.Mild subchondral cystic change is present at the superolateral aspect of thehumeral head near the footplate (coronal images 10-1 1).OTHER FINDINGSA superficial skin marker is seen at the lateral aspect of the right shoulderto wiliam the area of concern. At this level, no masses or fluid col lections areidentified to explain the patient's symptoms. A minimal amount of fa t strandingat this level is nonspecific (coronal image 14).IMPRESSION:1. Acute, full-thickness tear of the RIGHT anterior supraspinatus measures 1.1cm AP with 0.7 cm proximal retraction.2. Subacromial/subdeltoid bursitis.3. Intra-articul ar biceps tendinosis without tear.4. Moderate acromioclavicular osteoarthrosis. --Read by: Tori Pollock MDDictated Date/time: 08/14/18 09:38Electron ically Signed by: Tori Pollock MD 08/14/1810:46FINAL [facility]PORTUn[facility]] TSH, 3RD GENERATION W/REFLEX TO FT4 2018-07-20 08:00:01* Test Item Value Reference Range Interpretation Comments TSH (test code = 22755-7) 3.310 {uIU/ml} 0.360-3.740 [facility] [address] 2018-07-09 08:41:00EXAM: SOFT TISSUE ULTRASOUND RIGHT UPPER EXTREMITY DATE: 07/09/2018 8:41 AM CDTINDICATION: - R22.9 Localized swelling, mass and lump, unspecifiedADDITIONAL INFORMATION: Localized swelling with the mass, tenderness andpalpable lump noticed a few days ago.COMPARISON: NoneTECHNIQUE: Multiple transverse and sagittal images of the right upper abdomenthe 80 of palpable lump with tenderness is available for review. Additionallycolor Doppler images of the 80 are also available for review.FINDINGS: An ill-defined heterogeneous partially echogenic superficialsubcutaneous mass measuring 1 x 0.5 x 1 cm is evident in the region offpalpable lump. This appears to demonstrate very minimal peripheral vascularitywith color Doppler. No evidence of organized fluid collection, or peripheralhyperemia to suggest abscess. This may represent a small subcutaneous lipoma.If there is clinical concern further evaluation may be obtained with MRI.IMPRESSION: 1. Small ill-defined heterogeneous somewhat echogenic superficial subcutaneousmass in the area of concern, may represent small subcutaneous lipoma. Furtherevaluation if clinically desired may be obtained with MRI.--Read by: Chriss Castillo MDDictated Date/time: 07/09/18 09:20Electronically Signed by: Chriss Castillo 07/09/1809:27FINAL REPORTUnJordan [facility]] HEPATITIS C [id number] 08:25:00* Test Item Value Reference Range Interpretation Comments Hepatitis C Antibody (test code = 45125-0) Negative [facility][] HIV AB, HIV 1/2, EIA, WITH [id number] 08:25:00* Test Item Value Reference Range Interpretation Comments HIV Ag/Ab 4th Gen (test code = 44766-6) Negative Negative HIV test results should be considered positive only when both the screening andthe confirmatory tests are positive. A negative confirmatory test in patientswith a positive screening test does not exclude HIV infection. If clincallywarranted, an HIV RNA quantitative test should be ordered. [facility][ON LICENSE OF [facility]] VITAMIN D, 25-HYDROXY, LC/MS/ND2016-01-46 08:25:00* Test Item Value Reference Range Interpretation Comments Vitamin D, 25-OH, Total (test code = Vitamin D, 25-OH, Total ) 13.9 ng/ml 30.0-100.0 Reference range is based on recommendations in the EndocrineSociety Clinical Practice Guideline (J Clin Endocrinol Ihycc8044;96:3558-8476) [facility][ON LICENSE OF [facility]] TSH, 3RD GENERATION W/REFLEX TO FT4 2018-05-13 08:26:01* Test Item Value Reference Range Interpretation Comments TSH; Above High Threshold (test code = 56899-7) 5.980 {uIU/ml} 0.36 0-3.740 [facility][ON LICENSE OF [facility]] T4, [id number] 08:26:01* Test Item Value Reference Range Interpretation Comments T4 Free (test code = 3024-7) 1.14 ng/dl 0.76-1.[address] (KUB)2018-04-22 08:24:00 [place] [address] Patient Name: LIBBY BAILEY MR #: [id number] : 1965 Age/Sex: 52/F Req #: [id number] Adm Physician: Ordered by: FABIAN CASAS MD Report #: [id number] Location: [facility] Room/ Bed: Procedure: [id number] DX/ABDOMEN-1VIEW (KUB) Diogo valles Date: 04/22/18 Exam Time: 075 REPORT STATUS: Signed PROCEDURE: X-RAY ABDOMEN - KUB COMPARISON: 12/23/2017. INDICATIONS: KIDNEY STONES FINDINGS: The bowel gas pattern loren ws no dilated, air-filled loops of bowel. No suspicious calcifications projec t over the renal shadows or expected ureteral courses. Bilateral tubal ligati on clips. Regional skeletal structures are intact with mild degenerative d isc changes of the lower lumbar spine. CONCLUSION: no han in film evidence of urolithiasis. Dictated by: Jess Fletcher M.D. on 04/22/2018 at 8:24 Electronically approved by: Jess Fletcher M.D. on 04/22/2018 at 8: 24 Dictated By: JESS FLETCHER MD 3 Transcribed By: RYLEE on 04/22/18823 COPY TO: FABIAN CASAS MD [ON LICENSE OF [facility]] T3, [id number] 10:53:00* Test Item Value Reference Range Interpretation Comments T3 Total (test code = 3053-6) 1.13 ng/ml 0.60-1.81 [facility][ON LICENSE OF [facility]] T4, [id number] 10:53:00* Test Item Value Reference Range Interpretation Comments T4 Free (test code = 3024-7) 0.97 ng/dl 0.76-1.46 [facility][ON LICENSE OF [facility]] TSH, 3RD [id number] 10:53:00* Test Item Value Reference Range Interpretation Comments TSH; Above High Threshold (test code = 16840-2) 7.130 {uIU/ml} 0.36 0-3.740 [facility][ON LICENSE OF [facility]] THYROID PEROXIDASE [id number] 10:53:00* Test Item Value Reference Range Interpretation Comments Thyroid Peroxidase (TPO) Antibody; Above High Threshol d (test code = 55755-8) >1300 <=60 [facility][ON LICENSE OF [facility]] HEMOGLOBIN [id number] 08:12:01* Test Item Value Reference Range Interpretation Comments Hemoglobin A1c (test code = 4548-4) 4.8 % <=5.6 [facility][ON LICENSE OF [facility]] CMP [id number] 08:12:00* Test Item Value Reference Range Interpretation Comments Sodium Level (test code = 2951-2) 142 {mEq/l} 135-145 Potassium Level (test code = 2823-3) 4.3 {mEq/l} 3.5-5.1 Chloride Level (test code = 2075-0) 109 {mEq/l} 95-109 Carbon Dioxide (test code = 2027-9) 28 {mEq/l} 24-32 AGAP; Below Low Threshold (test code = 40460-2) 9.3 {mEq/l} 10.0-2 0.0 Glucose Lvl (test code = 2345-7) 96 mg/dl 70-99 Adult reference range values reflect the clinical guidelinesof the [place] Diabetes Association. Creatinine Lvl (test code = 2160-0) 0.80 mg/dl 0.50-1.40 Blood Urea Nitrogen (test code = 3094-0) 12 mg/dl 7-22 BUN/Creatinine Ratio (test code = 3097-3) 15 6-25 Total Protein (test code = 2885-2) 7.5 g/dl 6.4-8.4 Albumin Lvl (test code = 1751-7) 4.2 g/dl 3.5-5.0 Globulin (test code = 13243-1) 3.3 g/dl 2.7-4.2 A/G Ratio (test code = 1759-0) 1.3 0.7-1.6 Calcium Level Total (test code = 58009-9) 9.2 mg/dl 8.5-10.5 ALT (test code = 1743-4) 42 u/l 0-65 AST (test code = 15922-7) 22 u/l 0-37 Alk Phos (test code = 1783-0) 93 u/l 39-136 Bili Total (test code = 1975-2) 0.5 mg/dl 0.2-1.3 eGFR (test code = 29195-3) 85 {ML/MIN/1.7} The eGFR is calculated using the CKD-EPI formula. In most young, healthyindividuals the eGFR will be >90 mL/min/1.73m2. The eGFR declines with age. AneGFR of 60-89 may be normal in some populations, particularly the elderly, forwhom the CKD-EPI formula has not been extensively validated. Use of the eGFR isnot recommended in the following populations:Individuals with unstable creatinine concentrations, including patients and those with serious co-morbid conditions.Patients with extremes in muscle mass or diet.The data above are obtained from the National Kidney Disease Education Program(NKDEP) which additionally recommends that when the eGFR is used in patientswith extremes of body mass index for purposes of drug dosing, the eGFR shouldbe multiplied by the estimated BMI. [facility][ON LICENSE OF [facility]] LIPID [id number] 08:12:00* Test Item Value Reference Range Interpretation Comments Chol (test code = 2093-3) 176 mg/dl <=199 Trig (test code = 2571-8) 120 mg/dl <=149 HDL Cholesterol; Below Low Threshold (test code = 2085-9) 54 mg/dl >=61 CHD Risk; Below Low Threshold (test code = 31412-3) 3.26 3. 90-5.80 LDL (test code = 74277-1) 98 mg/dl <=99 VLDL (test code = VLDL) 24 [facility][ON LICENSE OF [facility]] TSH, 3RD GENERATION W/REFLEX TO FT4 2018-02-03 08:12:00* Test Item Value Reference Range Interpretation Comments TSH; Above High Threshold (test code = 85652-3) 11.700 {uIU/ml} 0.3 60-3.740 [facility] T4, [id number] 08:12:00* Test Item Value Reference Range Interpretation Comments T4 Free (test code = 3024-7) 1.01 ng/dl 0.76-1.46 [facility][ON LICENSE OF [facility]] CBC (INCLUDES DIFF/PLT)2018-02-03 08:12:00* Test Item Value Reference Range Interpretation Comments WBC (test code = 6690-2) 5.6 {K/CMM} 3.7-10.4 RBC (test code = 789-8) 4.62 {M/CMM} 4.20-5.40 Hgb (test code = 718-7) 14.7 g/dl 12.0-16.0 Hct (test code = 21967-6) 44.5 % 36.0-48.0 MCV (test code = 787-2) 96.4 fL 80.0-98.0 MCH; Above High Threshold (test code = 785-6) 31.8 pg 27.0-31. 0 MCHC (test code = 786-4) 33.0 g/dl 32.0-36.0 RDW (test code = 788-0) 13.9 % 11.5-14.5 Platelet (test code = 71882-4) 191 {K/CMM} 133-450 Mean Platelet Volume; Above High Threshold (test code = 3262 3-1) 11.2 fL 7.4-10.4 [facility][ON LICENSE OF [facility]] [id number] 08:12:00* Test Item Value Reference Range Interpretation Comments Segmented Neutrophils; Below Low Threshold (test code = 2650 5-8) 35.4 % 45.0-75.0 Monocytes (test code = 97167-2) 6.2 % 2.0-12.0 Lymphocytes; Above High Threshold (test code = 86609-5) 56.0 % 20.0-40.0 Eosinophils (test code = 79609-7) 2.0 % 0.0-4.0 Basophils (test code = 706-2) 0.4 % 0.0-1.0 Segs-Bands # (test code = 78726-3) 2.0 {K/CMM} 1.5-8.1 Lymphocytes # (test code = 15736-8) 3.2 {K/CMM} 1.0-5.5 Monocytes # (test code = 22177-9) 0.3 {K/CMM} 0.0-0.8 Eosinophils # (test code = 19351-9) 0.1 {K/CMM} 0.0-0.5 [facility]] VITAMIN D, 25-HYDROXY, LC/[id number] 08:12:00* Test Item Value Reference Range Interpretation Comments Vitamin D, 25-OH, Total (test code = Vitamin D, 25-OH, Total ) 8.9 ng/ml 30.0-100.0 Reference range is based on recommendations in the EndocrineSociety Clinical Practice Guideline (J Clin Endocrinol Vxzel7136;96:2326-8767) [facility][H] Methylmalonic Acid and [id number] 08:12:00* Test Item Value Reference Range Interpretation Comments Methylmalonic Acid Quantitative (test code = Methylmal onic Acid Quantitative) 179 nmol/L 0-378 This test was develo ped and its performance characteristicsdetermined by [employer]. It has not been cleared orapproved by the Food and Drug Administration.Performed At: [facility] [address] [id number] Mason Tran MD Ph:[phone] At: [facility] [address] [id number] Kyle L MD Ph:[phone] Homocysteine Total (test code = Homocysteine Total) 11.2 umol/L 0. 0-15.0 [facility] Digital Mammo Screening Santy [id number] 08:25:00BILATERAL DIGITAL SCREENING MAMMOGRAM WITH CAD: 01/03/2018CLINICAL: /Z12.31. Current study was evaluated with a Computer Aided Detection (CAD) system. COMPARISON:Comparison is made to exams dated: 01/02/2017 mammogram - [facility] and 09/07/2014 mammogram. TECHNIQUE: Mammographic views were obtained using digital acquisition. Currentstudy was also evaluated with a Computer Aided Detection (CAD) system.FINDINGS:The tissue of both breasts is heterogeneously dense, which could obscuredetection of small masses. Bilateral breast implants are intact. No significant masses, calcifications, or other findings are seen in eitherbreast. There has been no significant interval change.IMPRESSION: BENIGNRECOMMENDATION:There is no mammographic evidence of malignancy. A 1 yearscreening mammogram is recommended.(01/04/2019) This exam was interpreted [id number] at [facility] [place] [facility]. Professional services are provided by the [facility].Lourdes Rubio M.D. th/penron:01/04/2018 16:14:51 Pin Chaser(s): Navneet Broussard sent: BI-RADS 1/2 Dense Mammogram BI-RADS: 2 Benign--Read by: Lourdse Rubio MDDictated Date/time: 01/04/18 16:14Electronically Signed by: Lourdes Rubio MD 01/05/1816:14FINAL REPORTUnJordan [facility] PhysiciansTobacco Use [id number] 14:00:00* Test Item Value Reference Range Interpretation Comments Completed (test code = Completed) DONE [facility]] CMP [id number] 09:45:00* Test Item Value Reference Range Interpretation Comments Sodium Level (test code = Sodium Level) 142 {mEq/l} 135-145 Potassium Level (test code = Potassium Level) 4.2 {mEq/l} 3.5-5.1 Chloride Level (test code = Chloride Level) 106 {mEq/l} 95-109 Carbon Dioxide (test code = Carbon Dioxide) 29 {mEq/l} 24-32 AGAP (test code = AGAP) 11.2 {mEq/l} 10.0-20.0 Glucose Lvl (test code = Glucose Lvl) 83 mg/dl 70-99 Adult reference range values reflect the clinical guidelinesof the [place] Diabetes Association. Creatinine Lvl (test code = Creatinine Lvl) 0.80 mg/dl 0.50-1.40 Blood Urea Nitrogen (test code = Blood Urea Nitrogen) 13 mg/dl 7-22 BUN/Creatinine Ratio (test code = BUN/Creatinine Ratio) 16 6-25 Total Protein (test code = 15440-2) 7.6 g/dl 6.4-8.4 Albumin Lvl (test code = 1751-7) 4.0 g/dl 3.5-5.0 Globulin (test code = Globulin) 3.6 g/dl 2.7-4.2 A/G Ratio (test code = A/G Ratio) 1.1 0.7-1.6 Calcium Level Total (test code = Calcium Level Total) 9.0 mg/dl 8.5-10.5 ALT (test code = 1742-6) 32 u/l 0-65 AST (test code = 1916-6) 15 u/l 0-37 Alk Phos (test code = 1783-0) 66 u/l 39-136 Bili Total (test code = 84420-4) 0.6 mg/dl 0.2-1.3 eGFR (test code = eGFR) 85 {ML/MIN/1.7} T he eGFR is calculated using the CKD-EPI formula. In most young, healthyindividuals the eGFR will be >90 mL/min/1.73m2. The eGFR declines with age. AneGFR of 60-89 may be normal in some populations, particularly the elderly, forwhom the CKD-EPI formula has not been extensively validated. Use of the eGFR isnot recommended in the following populations:Individuals with unstable creatinine concentrations, including patients and those with serious co-morbid conditions.Patients with extremes in muscle mass or diet.The data above are obtained from the National Kidney Disease Education Program(NKDEP) which additionally recommends that when the eGFR is used in patientswith extremes of body mass index for purposes of drug dosing, the eGFR shouldbe multiplied by the estimated BMI. [facility][ON LICENSE OF [facility]] LIPID [id number] 09:45:00* Test Item Value Reference Range Interpretation Comments Chol (test code = Chol) 189 mg/dl <=199 Trig (test code = 2571-8) 145 mg/dl <=149 HDL Cholesterol (test code = HDL Cholesterol) 59 mg/dl >=61 LDL (test code = LDL) 101 mg/dl <=99 VLDL (test code = VLDL) 29 CHD Risk (test code = CHD Risk) 3.20 3.90-5.80 [facility]icians[facility] Use [id number] 16:00:00* Test Item Value Reference Range Interpretation Comments Completed (test code = Completed) DONE [facility] [place] [address] Patient Name: LIBBY BAILEY MR #: [id number] : 1965 Age/Sex: 52/F Req #: [id number] Adm Physician: Ordered by: FABIAN CASAS MD Report #: [id number] Location: RAD Room/Bed: Procedure: [id number] DX/ABDOMEN-1VIEW ([facility]) [place]ogo valles Date: 12/23/17 Exam Time: 651 REPORT STATUS: Signed PROCEDURE: X-RAY ABDOMEN - [facility] COMPARISON: Abdomen one view 09/09/2017. INDICATIONS: CALCULUS OF KIDNEY FINDINGS: There i s a non-obstructed bowel-gas pattern. There are no calcifications projected o palak the renal shadows, expected course of the ureters or bladder. Bilateral t ubal ligation clips. There are no acute osseous abnormalities. The lung bases are clear. CONCLUSION: No acute radiographic abnormality. Dict ated by: Erika Cadena M.D. on 12/23/2017 at 7:34 Electronically approved by: Erika Cadena M.D. on 12/23/2017 at 7:34 Dictated By: ERIKA WOOD MD 3 Transcribed B y: INFCE on 12/23/17733 COPY TO: FABIAN CASAS MD ABDOMEN- 1VIEW ([facility]) [place] [address] Patient Name: LIBBY BAILEY MR #: [id number] : 1965 Age/Sex: 52/F Req #: [id number] Adm Physician: Ordered by: FABIAN CASAS MD Report #: [id number] Location: RAD Room/Bed: Procedure: [id number] DX/ABDOMEN-1VIEW (KUB) [place] Date: 09/09/17 Exam Time: 0643 REPORT STATUS: Signed PROCEDURE: X-RAY ABDOMEN - KUB COMPARISON: Images from retr ograde pyelogram 05/07/2017. INDICATIONS: RANAL STONES FINDINGS: The bowel gas pattern shows no dilated, air-filled loops of bowel. No mass effect or organomegaly. Regional skeletal structures are intact with mild deg enerative disc changes of the lumbar spine. No suspicious calcifications proj ect over the renal shadows, expected ureteral courses, or urinary bladder. Pe lvic surgical clips are unchanged in position. CONCLUSION: No plain film evidence of urolithiasis. Dictated by: Jess Fletcher M.D. on 2016 at 7:22 Electronically approved by: Jess Fletcher M.D. on 09/09/2017 at 7:22 Dictated By: JESS FLETCHER MD 1 Transcribed By: RYLEE on 09/09/17721 COPY TO: FABIAN CASAS MD
--- OUTSIDE RECORDS SUMMARY | 2020-05-05 11:32 | XMS REPORT | Summary of Care ---
Author Author [facility] Address [address] [place] [address] Phone Unavailable Care Team Providers Care Php Developer Name Role Phone KATHLEEN Forbes, SHAWN Unavailable Unavailable MELANIE Forbes, DHRUV Unavailable Unavailable MELANIE COHEN, DHRUV Unavailable Unavailable MAIA COHEN, FREDDIE Unavailable Unavailable EMIL COHEN SC, LUBA FORD Unavailable Unavailable Kathleen COHEN, Shawn Unavailable Unavailable JENNIFER COHEN SC, GIDEON JAMES Unavailable Unavailable ESTEVAN COHEN SC, CAMERON Unavailable Unavailable Unavailable Unavailable Functional Status Name Dates Details Functional status health issues are not documented Status: Name Dates Details Cognitive status health issues are not d ocumented Status: Problems Name Dates Details Acute internal derangement of knee, righ t (717.9, M23.91) Status: Active Coracoid impingement of right shoulder ( 726.2, M75.41) Status: Active Constipation (564.00, K59.00) Status: Active Screen for colon cancer (V76.51, Z12.11) Status: Active Bilateral renal cysts (753.10, N28.1) Status: Active 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 , 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 Solar lentigo (709.09, L81.4) Status: Active Nevus spilus of abdominal wall (216.5, D 22.5) Status: Active Other rosacea (695.3, L71.8) Status: Active Chronic back pain (724.5, M54.9) Status: Active Bilateral hip pain (719.45, M25.551) Status: Active Supraspinatus tendon tear, right, initia l encounter Status: Active B12 deficiency (266.2, E53.8) Status: Active Mammogram abnormal (793.80, R92.8) Status: Active Prediabetes (790.29, R73.03) Status: Active Dyslipidemia (272.4, E78.5) Status: Active Ovarian cyst, left (620.2, N83.202) Status: Active Hypothyroidism (244.9, E03.9) Status: Active Golfers elbow of right upper extremity ( 726.31, M77.01) Status: Active Rectal bleed (569.3, K62.5) Status: Active Screening for HIV (human immunodeficienc y virus) (V73.89, Z11.4) Status: Active Need for hepatitis C screening test (V73 .89, Z11.59) Status: Active Need for Tdap vaccination (V06.1, Z23) Status: Active Need for shingles vaccine (V04.89, Z23) Status: Active Nail disorder (703.9, L60.9) Status: Active Right shoulder tendinitis (726.10, M75.8 1) Status: Active Bilateral anterior knee pain (719.46, M2 5.561) Status: Active Right hip pain (719.45, M25.551) Status: Active Traumatic rotator cuff tear, right, init ial encounter (840.4, S46.011A) Status: Active Fatty liver (571.8, K76.0) Status: Active Breast implant status (V43.82, Z98.82) Status: Active Seborrheic keratosis (702.19, L82.1) Status: Active Allergic contact dermatitis due to other agents (692.89, L23.89) Status: Active BMI (body mass index) 20.0-29.9 Status: Active Bilateral kidney stones (592.0, N20.0) Status: Active Acquired hypothyroidism (244.9, E03.9) Status: Active Screening mammogram, encounter for (V76. 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 ( V58.69, Z79.899) Status: Active Vitamin D deficiency (268.9, E55.9) Status: Active Need for influenza vaccination (V04.81, Z23) Status: Active Need for hepatitis B vaccination (V05.3, Z23) Status: Active Iron deficiency (280.9, E61.1) Status: Active Abnormal LFTs (790.6, R94.5) Status: Active Medications Name Dates Details Atorvastatin Calcium 20 MG Oral Tablet TAKE 1 TABLET BY MOUTH EVERY NIGHT AT BEDTIME Quantity: 15 SATCONNIE Forbes, DHRUV * Start : 28-May-2017 Active Shingrix 50 MCG Intramuscular Suspension Reconstituted IM: 0.5 mL 2-dose series at 0 and 2 to 6 months * Quantity: 1 Refills: 1 MELANIE Forbes DHRUV * Start : 10-Jun-2018 Active metFORMIN HCl ER 500 MG Oral Tablet Extended Release 24 Hour TAKE 1 TABLET BY MOUTH EVERY DAY * Quantity: 90 Refills: 0 MELANIE Forbes DHRUV * Start : 28-Dec-2018 Active Levothyroxine Sodium 75 MCG Oral Tablet TAKE 1 TABLET DAILY. * Quantity: 90 Refills: 1 SHAWN WANG M.D. * Start : 19-Feb-2018 Active Glucose Meter Test In Vitro Strip USE DIRECTED TWICE A DAY * Quantity: 100 Refills: 1 MELANIE Forbes DHRUV * Start : 09-Mar-2019 Active Lancets Check twice daily * Quantity: 100 Refills: 1 DHRUV NAVARRO M.D. * Start : 09-Mar-2019 Active Vitamin D3 50 MCG (2000 UT) Oral Tablet Take 1 tab PO daily * Refills: 0 Active Calcium 600 MG Oral Tablet TAKE 1 TAB BID * Refills: 0 Active Multi Vitamin TABS TAKE 1 TABLET DAILY. * Refills: 0 Active Allergies and Adverse Reactions Name Dates Details Codeine Derivatives (Allergy) Reaction: Shortness of breath, Anxiety Status: Active Hydrocodone-Acetaminophen CAPS (Allergy) Reaction: Shortness of breath, Anxiety Status: Active Past Medical History Name Dates Details H/O mammogram (V15.89, Z92.89) Status: Resolved History of high cholesterol (V12.29, Z86 .39) Status: Resolved History of menopause (V49.81, Z78.0) Status: Resolved History of renal stone (V13.01, Z87.442) Status: Resolved Procedures Procedure Dates Details History of Breast Surgery Removal Of Mammary Implant Bilater al Completed History of Abdominoplasty Completed History of Oophorectomy Completed History of Hysterectomy Completed History of Rotator Cuff Repair Completed Immunization Name Dates Details Fluzone Quadrivalent 0.5 ML Intramuscula r Suspension Lot #: [id number] on: 31-Oct-2016 Fluzone Quadrivalent 0.5 ML Intramuscula r Suspension Lot #: [id number] on: 09-Jul-2017 Fluzone Quadrivalent 0.5 ML Intramuscula r Suspension Lot #: [id number] on: 10-Jun-2018 Tdap Lot #: [id number] on: 10-Jun-2018 Hepatitis B, adult Lot #: [id number] on: 09-Apr-2019 Hepatitis B, adult Lot #: [id number] on: 15-Jun-2019 Fluzone Quadrivalent 0.5 ML Intramuscula r Suspension Lot #: [id number] on: 09-Jul-2019 Hepatitis B, adult Lot #: [id number] on: 11-Oct-2019 Family History Name Dates Details Family history of Diabetes mellitus due to underlying condition with other ophthalmic complication (249.50, E08.39) Status: Active Family history of hypertension (V17.49, Z82.49) Status: Active Family history of cerebrovascular accide nt (CVA) (V17.1, Z82.3) Status: Active Name Dates Details Family history of malignant neoplasm of prostate (V16.42, Z80.42) Status: Active Name Dates Details Family history of malignant neoplasm of breast (V16.3, Z80.3) Status: Active Name Dates Details Family history of malignant neoplasm of prostate (V16.42, Z80.42) Status: Active Social History Name Dates Details - Status: Name Dates Details Never smoker Never smoker Vital Signs Date Test Result Details No Known Vitals to report Results Date Description Value Details 31-Hwo-[id number]:16 [QL] CBC (INCLUDES DIFF/PLT) WBC 4.8 {K/CMM} Range: 3.7-10.4 RBC 4.82 {M/CMM} Range: 4.20-5.40 Hgb 15.1 g/dl Range: 12.0-16.0 Hct 46.4 % Range: 36.0-48.0 MCV 96.3 fL Range: 80.0-98.0 MCH 31.3 pg (Above high threshold) Range: 27.0-31.0 MCHC 32.5 g/dl Range: 32.0-36.0 RDW 13.8 % Range: 11.5-14.5 Platelet 159 {K/CMM} Range: 133-450 Mean Platelet Volume 11.0 fL (Above high thresh old) Range: 7.4-10.4 :16 [QLH] Differential Segmented Neutrophils 43.0 % (Below low thresho ld) Range: 45.0-75.0 Monocytes 6.0 % Range: 2.0-12.0 Lymphocytes 49.0 % (Above high threshold) R shital: 20.0-40.0 Eosinophils 1.7 % Range: 0.0-4.0 Basophils 0.3 % Range: 0.0-1.0 Segs-Bands # 2.1 {K/CMM} Range: 1.5-8.1 Lymphocytes # 2.3 {K/CMM} Range: 1.0-5.5 Monocytes # 0.3 {K/CMM} Range: 0.0-0.8 Eosinophils # 0.1 {K/CMM} Range: 0.0-0.5 :16 [QLH] CMP W/EGFR Sodium Level 143 {mEq/l} Range: 135-145 Potassium Level 4.3 {mEq/l} Range: 3.5-5.1 Chloride Level 109 {mEq/l} Range: 95-109 Carbon Dioxide 27 {mEq/l} Range: 24-32 AGAP 11.3 {mEq/l} Range: 10.0-20.0 Glucose Lvl 109 mg/dl (Above high threshold ) Range: 70-99 Comments: Adult reference range values reflect the clinical guidelinesof the [place] [employer]. Creatinine Lvl 0.90 mg/dl Range: 0.50-1.40 Blood Urea Nitrogen 13 mg/dl Range: 7-22 BUN/Creatinine Ratio 14 Range: 6-25 Total Protein 8.0 g/dl Range: 6.4-8.4 Albumin Lvl 4.5 g/dl Range: 3.5-5.0 Globulin 3.5 g/dl Range: 2.7-4.2 A/G Ratio 1.3 Range: 0.7-1.6 Calcium Level Total 9.8 mg/dl Range: 8.5-1 0.5 ALT 36 u/l Range: 0-65 AST 23 u/l Range: 0-37 Alk Phos 86 u/l Range: 39-136 Comments: The pediatric reference ranges for this test represent a CLSI- basedtransference of the CALIPER database of pediatric reference intervals to theSiemens Roseau analyzer (Clinical Biochemistry 46 (2013): 2693-4157). [facility] [employer] has not internally validated these referenceranges and therefore they should be used only in the context of a thoroughclinical assessment. Bili Total 0.7 mg/dl Range: 0.2-1.3 eGFR 73 {ML/MIN/1.7} Comments: The e GFR is calculated using the CKD-EPI formula. In [...] eGFR shouldbe multiplied by the estimated BMI. :16 [QLH] FERRITIN Ferritin Lvl 70 ng/ml Range: 5-204 :16 [QL] LIPID PANEL Chol 196 mg/dl Range: <=199 Trig 83 mg/dl Range: <=149 HDL Cholesterol 69 mg/dl Range: >=61 CHD Risk 2.84 (Below low threshold) Ran ge: 3.90-5.80 LDL 110 mg/dl (Above high threshold ) Range: <=99 VLDL 17 :16 [QL] TSH, 3RD GENERATION W/REFLEX TO FT 4 TSH 1.680 {uIU/ml} Range: 0.360-3.7 40 80-Aoa-81023:16 [QL] HEMOGLOBIN A1c Hemoglobin A1c 5.8 % (Above high threshold) Ra nge: <=5.6 Plan of Care Name Dates Details Planned Observations Planned Goals not documented Planned Encounters Appointment; SHAWN WANG M.D. On: 09-Nov-2019 8:00 Appointment; DHRUV NAVARRO M.D. On: 12-Nov-2019 8:15 Instructions Name Dates Details Instructions not documented Encounters Appointment; IRON VILLAR M.D. Encounter Diagnosis: Problem not documented On: 05-Dec-2017 8:30 Appointment; DHRUV NAVARRO M.D. Encounter Diagnosis: Problem not documented On: 10-Dec-2017 8:00 Appointment; SHAWN WANG M.D. Encounter Diagnosis: Problem not documented On: 13-Feb-2018 10:30 Appointment; CAMERON BARRETO M.D. Encounter Diagnosis: Problem not documented On: 01-Apr-2018 11:20 Appointment; SHAWN WANG M.D. Encounter Diagnosis: Problem not documented On: 20-May-2018 9:00 Appointment; DHRUV NAVARRO M.D. Encounter Diagnosis: Problem not documented On: 10-Jun-2018 8:00 Appointment; DHRUV NAVARRO M.D. Encounter Diagnosis: Problem not documented On: 08-Jul-2018 11:30 Appointment; DHRUV NAVARRO M.D. Encounter Diagnosis: Problem not documented On: 23-Jul-2018 8:15 Appointment; SHAWN WANG M.D. Encounter Diagnosis: Problem not documented On: 05-Aug-2018 8:30 Appointment; GENA STILL D.O. Encounter Diagnosis: Problem not documented On: 19-Aug-2018 14:00 Appointment; DHRUV NAVARRO M.D. Encounter Diagnosis: Problem not documented On: 02-Sep-2018 8:00 Appointment; LUBA STEIN M.D. Encounter Diagnosis: Problem not documented On: 10-Sep-2018 8:45 Appointment; LUBA STEIN M.D. Encounter Diagnosis: Problem not documented On: 14-Sep-2018 7:00 Appointment; LUBA STEIN M.D. Encounter Diagnosis: Problem not documented On: 22-Sep-2018 10:30 Appointment; LUBA STEIN M.D. Encounter Diagnosis: Problem not documented On: 01-Oct-2018 11:15 Appointment; LUBA STEIN M.D. Encounter Diagnosis: Problem not documented On: 27-Oct-2018 8:30 Appointment; SHAWN WANG M.D. Encounter Diagnosis: Problem not documented On: 28-Oct-2018 8:30 Appointment; LUBA STEIN M.D. Encounter Diagnosis: Problem not documented On: 29-Oct-2018 14:45 Appointment; IRON VILLAR M.D. Encounter Diagnosis: Problem not documented On: 06-Nov-2018 8:00 Appointment; DHRUV NAVARRO M.D. Encounter Diagnosis: Problem not documented On: 08-Dec-2018 8:00 Appointment; DHRUV NAVARRO M.D. Encounter Diagnosis: Problem not documented On: 09-Dec-2018 8:00 Appointment; LUBA STEIN M.D. Encounter Diagnosis: Problem not documented On: 10-Dec-2018 10:15 Appointment; DHRUV NAVARRO M.D. Encounter Diagnosis: Problem not documented On: 28-Dec-2018 9:00 Appointment; SHAWN WANG M.D. Encounter Diagnosis: Problem not documented On: 12-Jan-2019 8:00 Appointment; WAQAR WHITNEY RD Encounter Diagnosis: Problem not documented On: 02-Feb-2019 8:00 Appointment; LUBA STEIN M.D. Encounter Diagnosis: Problem not documented On: 11-Mar-2019 10:15 Appointment; DHRUV NAVARRO M.D. Encounter Diagnosis: Problem not documented On: 30-Mar-2019 8:00 Appointment; DHRUV NAVARRO M.D. Encounter Diagnosis: Problem not documented On: 09-Apr-2019 8:15 Appointment; DHRUV NAVARRO M.D. Encounter Diagnosis: Problem not documented On: 13-Apr-2019 8:15 Appointment; CAMERON BARRETO M.D. Encounter Diagnosis: Problem not documented On: 05-May-2019 13:20 Appointment; SHAWN WANG M.D. Encounter Diagnosis: Problem not documented On: 11-May-2019 8:00 Appointment; WALI DIXON P.A. Encounter Diagnosis: Problem not documented On: 11-May-2019 11:15 Appointment; LUBA STEIN M.D. Encounter Diagnosis: Problem not documented On: 20-May-2019 10:15 Appointment; DHRUV NAVARRO M.D. Encounter Diagnosis: Problem not documented On: 15-Jun-2019 8:00 Appointment; SATTAR, DHRUV, M.D. Encounter Diagnosis: Problem not documented On: 09-Jul-2019 8:15 Appointment; DHRUV NAVARRO M.D. Encounter Diagnosis: Problem not documented On: 11-Oct-2019 8:15
--- OUTSIDE RECORDS SUMMARY | 2020-05-05 11:32 | XMS REPORT | Clinical Summary ---
Author Author [facility] [place] [facility] Address Unknown Phone Unavailable Care Team Providers Care Supervisor [employer] Name Role Phone Emily Cooper MD PCP Allergies Comments Active Allergy Reactions Severity Noted Date Codeine Anaphylaxis High 04/06/2020 Hydrocodone Anaphylaxis High 04/06/2020 Medications End Date Status Medication Sig Dispensed Refills Start Date Active metformin HCl (METFORMIN Take by mouth 0 ORAL) every morning. Active levothyroxine sodium Take by mouth 0 (LEVOTHYROXINE ORAL) every morning. Active multivitamin with Take 1 tablet 0 minerals tablet by mouth daily. Active Problems Problem Noted Date Calculus of kidney 04/14/2020 Encounters Care Team Description Date Type Specialty Isabel Echevarria MD 04/14/2020 Anesthesia General Surgery Event Fabian Toth MD ESWL WITH CYSTO 04/14/2020 Surgery General Surgery Fabian Toth MD Preoperative testing 04/14/2020 [facility] General Surgery Encounter 04/14/2020 Travel 04/10/2020 Travel 04/06/2020 Travel after 04/18/2019 Family History Medical History Relation Name Comments Diabetes Mother Hypertension Mother Relation Name Status Comments Father Alive Mother Social History Date Tobacco Use Types Packs/Day Years Used Never Smoker Smokeless Tobacco: Never Used Drinks/Week oz/Week Comments Alcohol Use Never Alcohol Habits Answer Date Recorded How often do you have a drink containing alcohol? Never 04/06/2020 How many drinks containing alcohol do you have on No t asked a typical day when you are drinking? How often do you have six or more drinks on one Not asked occasion? Sex Assigned at Date Recorded Not on file Industry Job Start Date Occupation Not on file Not on file Not on file Travel End Travel History Travel Start No recent travel history available. Date Recorded COVID-19 Exposure Response 04/14/2020 8:17 AM CDT In the last month, have you been in contact with No / Unsure someone who was confirmed or suspected to have Coronavirus / COVID-19? Last Filed Vital Signs Reading Time Taken Comments Vital Sign 122/68 04/14/2020 11:50 AM CDT Blood Pressure 68 04/14/2020 11:50 AM CDT Pulse 36.6 C (97.9 F) 04/14/2020 11:28 AM CDT Temperature 18 04/14/2020 11:50 AM CDT Respiratory Rate 98% 04/14/2020 11:50 AM CDT Oxygen Saturation - - Inhaled Oxygen Concentration 66 kg (145 lb 9.6 oz) 04/14/2020 9:14 AM CDT Weight 154.9 cm (5' 1") 04/14/2020 9:14 AM CDT Height 27.51 04/14/2020 9:14 AM CDT Body Mass Index Plan of Treatment Health Maintenance Due Date Last Done Comments CERVICAL CANCER SCREENING 1986 BREAST CANCER SCREENING 2015 COLONOSCOPY SCREENING 2015 SHINGLES VACCINES (#1) 2015 INFLUENZA VACCINE 05/06/2020 Implants Device Identifier Shelf Expiration Date Model / Serial / L ot Implanted Type Area Manufactur er [id number] / / Catheter Uretl 5fr 70cm Opn-End Urological N/A: N/A [employer] Flx-Tp Std - [id number] Implants UROLOGICAL Implanted: Qty: 1 on 04/14/2020 by or Fabian Gaxiola MD at [facility] Procedures Comments Procedure Name Priority Date/Time Associated Diag nosis WV AN ELECTIVE Routine 04/14/2020 SUPRAGLOTTIC AIRWAY 10:10 AM CDT ESWL WITH CYSTO 04/14/2020 KIDNEY STONE 10:00 AM CDT N20.0 Special Needs NEXT MED CONF # [id number] POC GLUCOSE Routine 04/14/2020 9:19 AM CDT XR ABDOMEN 1 VW Routine 04/14/2020 8:40 AM CDT URINE CULTURE Routine 04/10/2020 1:18 PM CDT URINALYSIS SCREEN AND Routine 04/10/2020 Preopera tive testing MICROSCOPY, WITH REFLEX 12:20 PM CDT TO CULTURE COVID-19 QUALITATIVE PCR Routine 04/10/2020 Preop erative testing 12:20 PM CDT ESTIMATED GFR Routine 04/10/2020 12:19 PM CDT HC COMPLETE BLD COUNT Routine 04/10/2020 Preopera tive testing W/AUTO DIFF 12:19 PM CDT BASIC METABOLIC PANEL Routine 04/10/2020 Preopera tive testing 12:19 PM CDT HEMOGLOBIN A1C Routine 04/10/2020 Preoperative te sting 12:19 PM CDT after 04/18/2019 Results * Airway (04/14/2020 10:10 AM CDT) Narrative Performed At Stephane Aguayo 04/14/2020 10:11 AM Airway Performed by: Stephane Aguayo Authorized by: Isabel Echevarrai MD Location: OR Urgency: Elective Difficult Airway: No Anesthesiologist: Isabel Echevarria MD Resident/OCCUPATIONAL MEDICINE PHYSICIAN/AA: Stephane Aguayo Performed by: resident/OCCUPATIONAL MEDICINE PHYSICIAN/AA Preoxygenated with 100% O2: Yes C-spine Precautions Maintained Througho ut: Yes Mask Ventilation: Not attempted Final Airway Type: Supraglottic airwa y Final LMA: Unique LMA Size: 4 Number of Attempts at Approach: 1 * POC glucose (04/14/2020 9:19 AM CDT) POC glucose 94 65 - 99 mg/dL [place] Comment: BERNADETTE NEWTON Office Agent Name: [facility] Device ID: [id number] Specimen Blood Performing Organization Address City/State/Zipcode Ph one Number [facility] [place] [address] [place], [place] [address] PATHOLOGY AND GENOMIC MEDICINE [place] BERNADETTE [place] [address] [place] [address] [facility] * XR Abdomen 1 Vw (04/14/2020 8:40 AM CDT) Specimen Narrative Performed At EXAMINATION: XR ABDOMEN 1 VW HM [facility]ANT CLINICAL HISTORY: KUB COMPARISON: None. IMPRESSION: There is a 9.4 mm calcification overlyi ng the left kidney. There several nonspecific calcifications within the p amina. The bowel gas pattern is nonspecific. There are no acute osseous abnormalities. [facility]-[id number] Dictated and approved by radiology resi dent/fellow: Deacon Dunaway M.D. I, Susana Jorge M.D., personally revie wed the images and resident's/fellow's findings and agree with the final repor t. Procedure Note [facility], Radiology Results Incoming - 04/14/2020 10:32 AM CDT EXAMINATION: XR ABDOMEN 1 VW CLINICAL HISTORY: KUB COMPARISON: None. IMPRESSION: There is a 9.4 mm calcification overlying the left kidney. There several nonspecific calcifications within the pelvis. The bowel gas pattern is nonspecific. There are no acute osseous abnormalities. [facility]-[id number] Dictated and approved by residential air sealing technician/fellow: Deacon Dunaway M.D. I, Susana Jorge M.D., personally reviewed the images and resident's/fellow's findings and agree with the final report. Performing Organization Address City/[facility] Ph one Number [facility] [address] [place] [address] * Urine culture (04/10/2020 1:18 PM CDT) Urine culture No growth after 24 hours [place] isolate Comment: B[facility]IST Specimen Information HOSPITAL Specimen Source: Urine Specimen Site: Clean catch Specimen Urine Performing Organization Address City/[facility] Ph one Number [facility] DEPARTMENT OF [address] [place] [address] PATHOLOGY AND GENOMIC MEDICINE [address] * Urinalysis screen and microscopy, with reflex to culture (04/10/2020 12:20 PM CDT) Specimen site Clean catch [facility] Color, UA Straw [facility] Appearance, UA Clear [facility] Specific 1.004 1.001 - 1.035 [place] gravity, UA [facility] pH, UA 5.0 5.0 - 8.[address] [facility] Protein, UA Negative Negative [facility] Glucose, UA Negative Negative [facility] Ketones, UA Negative Negative [facility] Bilirubin, UA Negative Negative [facility] Blood, UA Negative Negative [facility] Nitrite, UA Negative Negative [facility] Urobilinogen, Negative <2.0 [facility] Leukocyte Trace (A) Negative [place] esterase, UA [facility] Epithelial Few Few /HPF [place] cells, UA [facility] WBC, UA 0-5 0 - 4 /HPF [facility] RBC, UA 0-5 0 - 5 /HPF [facility] Bacteria, UA None seen None seen [facility] Yeast, UA None seen [facility] Yeast with None seen [place] pseudohyphae, [facility] Specimen Urine Performing Organization Address [facility] Ph one Number [facility] [place] [address] [place], [place] [address] PATHOLOGY AND GENOMIC MEDICINE [address] [place] [phone] [facility] * COVID-19 qualitative PCR (04/10/2020 12:20 PM CDT) Pathologist [facility] Interpretation Negative results do not RICHARDS[place] preclude 2019-nCoV infection [facility] and should not be used as the HOSPITAL sole basis for treatment or other patient management decisions. Negative results must be combined with clinical observations, patient history, and epidemiological information. COVID-19 Not-Detected Not-Detected [place] qualitative PCR [facility] HOSPITAL COVID-19 See link below for PDF Lab [place] qualitative PCR ReportComment: Case Number: [facility] [id number] HOSPITAL Specimen Nasopharyngeal swab Performing Organization Address City/[facility] Ph one Number [facility] DEPARTMENT OF [address] [place] [phone] PATHOLOGY AND GENOMIC MEDICINE [address] [address] [facility] * Estimated GFR (04/10/2020 12:19 PM CDT) Estimated GFR >=90 mL/min/1.73 m2 [place] Comment: [facility] Interpretation G1 >=90 Normal or high G2 60-89 Mildly decreased G3a 45-59 Mildly to moderately decreased G3b 30-44 Moderately to severely decreased G4 15-29 Severely decreased G5 <15 Kidney failure The eGFR was calculated using the Chronic Kidney Disease Epidemiology Collaboration (CKD-EPI) equation. Interpretation is based on recommendations of the National Kidney Foundation-Kidney Disease Outcomes Quality Initiative (NKF-KDOQI) published in 2014. Specimen Performing Organization Address City/State/Zipcode Ph one Number [facility] [place] [address] [place], [place] [address] PATHOLOGY AND GENOMIC MEDICINE [facility] [address] [place] [phone] [facility] * CBC with platelet and differential (04/10/2020 12:19 PM CDT) WBC 5.84 4.50 - 11.00 k/uL [facility] RBC 4.72 4.20 - 5.50 m/uL [facility] HGB 14.6 12.0 - 16.0 g/dL [facility] HCT 44.3 37.0 - 47.0 % [facility] MCV 93.9 82.0 - 100.[address] fL [facility] MCH 30.9 27.0 - 34.0 pg [facility] MCHC 33.0 31.0 - 37.0 g/dL [facility] RDW - SD 46.3 37.0 - 55.[address] [facility] MPV 12.4 8.8 - 13.[address] [facility] Platelet count 163 150 - 400 k/uL [facility] Nucleated RBC 0.00 /100 WBC [facility] Neutrophils 36.8 (L) 39.0 - 69.0 % [facility] Lymphocytes 54.6 (H) 25.0 - 45.0 % [facility] Monocytes 6.2 0.0 - 10.0 % [facility] Eosinophils 1.7 0.0 - 5.0 % [facility] Basophils 0.5 0.0 - 1.0 % [facility] Specimen Blood Performing Organization Address City/State/Zipcode Ph one Number [facility] DEPARTMENT OF [address] [place] [address]. [place] [address] PATHOLOGY AND GENOMIC MEDICINE [facility] [address] [address] [place] [phone] [facility] * Hemoglobin A1c (04/10/2020 12:19 PM CDT) Hemoglobin A1C 5.5 4.0 - 5.6 % [place] Comment: [facility] HbA1c cutoffs for diagnosing [facility] diabetes: 4.0% - 5.6% = normal 5.7% - 6.4% = increased risk for diabetes (prediabetes)9 >=6.5% = diabetes9 Goals for glycemic control (ADA 2016) < 7.0% Target for non adults with diabetes. More or less stringent targets may be appropriate for individual patients. <7.5% Target for Children and adolescents with type 1 diabetes. Specimen Blood Performing Organization Address City/[facility] Ph one Number [facility] [place] [id number] [place] [address] [place], [place] [address] PATHOLOGY AND GENOMIC MEDICINE [facility] [id number] [place] [address] * Basic metabolic panel (04/10/2020 12:19 PM CDT) Sodium 139 135 - 148 mEq/L [facility] Potassium 3.7 3.5 - 5.0 mEq/L [facility] Chloride 104 98 - 112 mEq/L [facility] CO2 26 24 - 31 mEq/L [facility] Anion gap 9@ANIO 7 - 15 mEq/L [facility] BUN 12 6 - 20 mg/dL [facility] Creatinine 0.70 0.50 - 0.90 mg/dL [facility] Glucose 111 (H) 65 - 99 mg/dL [facility] Calcium 9.9 8.3 - 10.2 mg/dL [facility] Specimen Blood Performing Organization Address City/[facility] Ph one Number [facility] DEPARTMENT OF [address] [place] [address] [place], [place] [address] PATHOLOGY AND GENOMIC MEDICINE [address] [place] [phone] [facility] after 04/18/2019 Insurance Type Payer Benefit Subscriber ID Effective Phone Address Plan / Dates Group Exchange [employer] xxxxxxxxxxxx 19 20-P EXCHANGE [employer] resent EXCHANGE [employer] Advance Directives For more information, please contact: [phone] 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
--- OUTSIDE RECORDS SUMMARY | 2020-05-05 11:32 | XMS REPORT | Summary of Care ---
Author Author LIBBY Arroyo M.A.Gee LINCrystal Organization Unknown Address [facility] Phone Unavailable Care Team Providers Care Yard Hand Name Role Phone Cruz Pickett, Constance Unavailable Unavailable KATHLEEN Forbes, SHAWN Unavailable Unavailable MELANIE Forbse, DHRUV Unavailable Unavailable MELANIE COHEN, DHRUV Unavailable Unavailable MAIA COHEN, FREDDIE Unavailable Unavailable EMIL COHEN UT, LUBA FORD Unavailable Unavailable Kathleen COHEN, Shawn Unavailable Unavailable JENNIFER COHEN UT, GIDEON JAMES Unavailable Unavailable ESTEVAN COHEN UT, CAMERON Unavailable Unavailable Unavailable Unavailable Functional Status Name Dates Details Functional status health issues are not documented Status: Name Dates Details Cognitive status health issues are not d ocumented Status: Problems Name Dates Details Right hip pain (719.45, M25.551) Status: Active Bilateral anterior knee pain (719.46, M2 5.561) Status: Active Right shoulder tendinitis (726.10, M75.8 1) Status: Active Acute internal derangement of knee, righ t (717.9, M23.91) Status: Active Coracoid impingement of right shoulder ( 726.2, M75.41) Status: Active Constipation (564.00, K59.00) Status: Active Screen for colon cancer (V76.51, Z12.11) Status: Active Nail disorder (703.9, L60.9) Status: Active Bilateral renal cysts (753.10, N28.1) Status: Active 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 , 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 Solar lentigo (709.09, L81.4) Status: Active Nevus spilus of abdominal wall (216.5, D 22.5) Status: Active Allergic contact dermatitis due to other agents (692.89, L23.89) Status: Active Seborrheic keratosis (702.19, L82.1) Status: Active Other rosacea (695.3, L71.8) Status: Active Breast implant status (V43.82, Z98.82) Status: Active Need for shingles vaccine (V04.89, Z23) Status: Active Need for Tdap vaccination (V06.1, Z23) Status: Active Need for hepatitis C screening test (V73 .89, Z11.59) Status: Active Screening for HIV (human immunodeficienc y virus) (V73.89, Z11.4) Status: Active Chronic back pain (724.5, M54.9) Status: Active Bilateral hip pain (719.45, M25.551) Status: Active Supraspinatus tendon tear, right, initia l encounter Status: Active Vitamin D deficiency (268.9, E55.9) Status: Active Other long term care phlebotomist (current) drug therapy ( V58.69, Z79.899) Status: Active Screening mammogram, encounter for (V76. 12, Z12.31) Status: Active Acquired hypothyroidism (244.9, E03.9) Status: Active Bilateral kidney stones (592.0, N20.0) Status: Active BMI (body mass index) 20.0-29.9 Status: Active Rectal bleed (569.3, K62.5) Status: Active Golfers elbow of right upper extremity ( 726.31, M77.01) Status: Active B12 deficiency (266.2, E53.8) Status: Active Fatty liver (571.8, K76.0) Status: Active Mammogram abnormal (793.80, R92.8) Status: Active Abnormal LFTs (790.6, R94.5) Status: Active Iron deficiency (280.9, E61.1) Status: Active Need for hepatitis B vaccination (V05.3, Z23) Status: Active Traumatic rotator cuff tear, right, init ial encounter (840.4, S46.011A) Status: Active Prediabetes (790.29, R73.03) Status: Active Dyslipidemia (272.4, E78.5) Status: Active Ovarian cyst, left (620.2, N83.202) Status: Active Hypothyroidism (244.9, E03.9) Status: Active Need for influenza vaccination (V04.81, Z23) Status: Active Medications Name Dates Details Atorvastatin Calcium 20 MG Oral Tablet TAKE 1 TABLET BY MOUTH EVERY NIGHT AT BEDTIME Quantity: 15 SATYAIMAR Leidy, DHRUV * Start : 28-May-2017 Active Levothyroxine Sodium 75 MCG Oral Tablet TAKE 1 TABLET DAILY. * Quantity: 90 Refills: 1 SHAWN WANG M.D. * Start : 19-Feb-2018 Active Shingrix 50 MCG Intramuscular Suspension Reconstituted IM: 0.5 mL 2-dose series at 0 and 2 to 6 months * Quantity: 1 Refills: 1 MELANIE Forbes, DHRUV * Start : 10-Jun-2018 Active metFORMIN HCl ER 500 MG Oral Tablet Extended Release 24 Hour TAKE 1 TABLET BY MOUTH EVERY DAY * Quantity: 90 Refills: 0 MELANIE Forbes, DHRUV * Start : 28-Dec-2018 Active Multi Vitamin TABS TAKE 1 TABLET DAILY. * Refills: 0 Active Vitamin D3 50 MCG (2000 UT) Oral Tablet Take 1 tab PO daily * Refills: 0 Active Calcium 600 MG Oral Tablet TAKE 1 TAB BID * Refills: 0 Active Lancets Check twice daily * Quantity: 100 Refills: 1 MELANIE Forbes, DHRUV * Start : 09-Mar-2019 Active Glucose Meter Test In Vitro Strip USE DIRECTED TWICE A DAY * Quantity: 100 Refills: 1 SATCONNIE Forbes, DHRUV * Start : 09-Mar-2019 Active Allergies and Adverse Reactions Name Dates [...] 0.5 ML Intramuscula r Suspension Lot #: [id number] on: 31-Oct-2016 Fluzone Quadrivalent 0.5 ML Intramuscula r Suspension Lot #: [id number] on: 09-Jul-2017 Fluzone Quadrivalent 0.5 ML Intramuscula r Suspension Lot #: [id number] on: 10-Jun-2018 Tdap Lot #: [id number] on: 10-Jun-2018 Hepatitis B, adult Lot #: [id number] on: 09-Apr-2019 Hepatitis B, adult Lot #: [id number] on: 15-Jun-2019 Fluzone Quadrivalent 0.5 ML Intramuscula r Suspension Lot #: [id number] on: 09-Jul-2019 Hepatitis B, adult Lot #: [...] to report Results Date Description Value Details [id number] [QLH] CBC (INCLUDES DIFF/PLT) WBC 4.8 {K/CMM} Range: [...] range values reflect the clinical guidelinesof the [place] [employer]. Creatinine Lvl 0.90 mg/dl Range: [...] CALIPER database of pediatric reference intervals to the[facility] – FairviewClassanata analyzer (Clinical Biochemistry 46 (2013): 2279-1597). [facility] [employer] has not internally validated these referenceranges and [...] Ferritin Lvl 70 ng/ml Range: 5-204 :16 [QLH] LIPID PANEL Chol 196 mg/dl Range: <=199 Trig 83 mg/dl Range: <=149 HDL Cholesterol 69 mg/dl Range: >=61 CHD Risk 2.84 (Below low threshold) Ran ge: 3.90-5.80 LDL 110 mg/dl (Above high threshold ) Range: <=99 VLDL 17 :16 [QLH] TSH, 3RD GENERATION W/REFLEX TO FT 4 TSH 1.680 {uIU/ml} Range: 0.360-3.7 40 :16 [QLH] HEMOGLOBIN A1c Hemoglobin A1c 5.8 % (Above [...] Problem not documented On: 15-Jun-2019 8:00 Appointment; DHRUV NAVARRO M.D. Encounter Diagnosis: Problem not documented On: 09-Jul-2019 8:15 Appointment; DHRUV NAVARRO M.D. Encounter Diagnosis: Problem not documented On: 11-Oct-2019 8:15
--- OUTSIDE RECORDS SUMMARY | 2020-05-05 11:33 | XMS REPORT | Summary of Care ---
Author Author [facility] Address [address] [place] [address] Phone Unavailable Care Team Providers Care Department Clinician Name Role Phone KATHLEEN Forbes, SHAWN Unavailable Unavailable MELANIE Forbes, DHRUV Unavailable Unavailable MELANIE COHEN, DHRUV Unavailable Unavailable MAIA COHEN, FREDDIE Unavailable Unavailable EMIL COHEN SD, LUBA FORD Unavailable Unavailable Kathleen COHEN, Shawn Unavailable Unavailable JENNIFER COHEN SD, GIDEON JAMES Unavailable Unavailable ESTEVAN COHEN SD, CAMERON Unavailable Unavailable Unavailable Unavailable Functional Status [...] Bilateral renal cysts (753.10, N28.1) Status: Active Other rosacea (695.3, L71.8) Status: Active Rectal bleed (569.3, K62.5) Status: Active Golfers elbow of right upper extremity ( 726.31, M77.01) Status: Active Mammogram abnormal (793.80, R92.8) Status: Active Prediabetes (790.29, R73.03) Status: Active Ovarian cyst, left (620.2, N83.202) Status: Active Hypothyroidism (244.9, E03.9) Status: Active Fatty liver (571.8, K76.0) Status: Active Bilateral kidney stones (592.0, N20.0) Status: Active Screening mammogram, encounter for (V76. 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 , 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 BMI (body mass index) 20.0-29.9 Status: Active Tremor, essential (333.1, G25.0) Status: Active Stage 2 chronic kidney disease (585.2, N 18.2) Status: Active Abnormal CBC measurement (790.6, R79.89) Status: Active Iron deficiency (280.9, E61.1) Status: Active Acquired hypothyroidism (244.9, E03.9) Status: Active Dyslipidemia (272.4, E78.5) Status: Active Need for influenza vaccination (V04.81, Z23) Status: Active Need for hepatitis B vaccination (V05.3, Z23) Status: Active Abnormal LFTs (790.6, R94.5) Status: Active Traumatic rotator cuff tear, right, init ial encounter (840.4, S46.011A) Status: Active B12 deficiency (266.2, E53.8) Status: Active Screening for HIV (human immunodeficienc y virus) (V73.89, Z11.4) Status: Active Need for hepatitis C screening test (V73 .89, Z11.59) Status: Active Need for Tdap vaccination (V06.1, Z23) Status: Active Need for shingles vaccine (V04.89, Z23) Status: Active Breast implant status (V43.82, Z98.82) Status: Active Medications Name Dates Details metFORMIN HCl ER 500 MG Oral Tablet Exte nded Release 24 Hour TAKE 1 TABLET BY MOUTH EVERY DAY Quantity: 90 SATTAR M.D., DHRUV * Start : 28-Dec-2018 Active Atorvastatin Calcium 20 MG Oral Tablet TAKE 1 TABLET BY MOUTH EVERY NIGHT AT BEDTIME * Quantity: 90 Refills: 0 SATTAR M.D., DHRUV * Start : 28-May-2017 Active Glucose Meter Test In Vitro Strip USE DIRECTED TWICE A DAY * Quantity: 100 Refills: 1 SATTAR M.D., DHRUV * Start : 09-Mar-2019 Active Lancets Check twice daily * Quantity: 100 Refills: 1 SATTAR M.D., DHRUV * Start : 09-Mar-2019 Active Multi Vitamin TABS TAKE 1 TABLET DAILY. * Refills: 0 Active Levothyroxine Sodium 75 MCG Oral Tablet TAKE 1 TABLET PO DAILY. * Quantity: 90 Refills: 1 KATHLEEN M.Laxmi, SHAWN * Start : 19-Feb-2018 Active Calcium 600 MG Oral Tablet TAKE 1 TAB BID * Refills: 0 Active Vitamin D3 50 MCG (1999 [place]) Oral Tablet Take 1 tab PO daily * Refills: 0 Active Allergies and Adverse [...] Z87.442) Status: Resolved Procedures Procedure Dates Details [QLH] TSH, 3RD GENERATION W/REFLEX TO FT4 Date: 09-Nov-2019 History of Breast Surgery Removal Of Mammary Implant Bilcarol al Completed History of Abdominoplasty Completed History of Oophorectomy Completed History of Hysterectomy Completed History of Rotator Cuff Repair Completed Immunization Name Dates Details Fluzone Quadrivalent 0.5 ML Intramuscula r Suspension Lot #: [id number] on: 31-Oct-2016 Fluzone Quadrivalent 0.5 ML Intramuscula r Suspension Lot #: [id number] on: 09-Jul-2017 Fluzone Quadrivalent 0.5 ML Intramuscula r Suspension Lot #: [id number] on: 10-Jun-2018 Tdap Lot #: [id number] on: 10-Jun-2018 Hepatitis B, adult Lot #: [id number] on: 09-Apr-2019 Hepatitis B, adult Lot #: [id number] on: 15-Jun-2019 Shingrix 50 MCG Intramuscular Suspension Reconstituted on: 06-Jul-2019 Fluzone Quadrivalent 0.5 ML Intramuscula r Suspension Lot #: [id number] on: 09-Jul-2019 Shingrix 50 MCG Intramuscular Suspension Reconstituted on: 05-Sep-2019 Hepatitis B, adult Lot #: [id number] on: [...] Details - Status: Name Dates Details Never smoked tobacco (finding) Never smoked tobacco (finding) Vital Signs Date Test Result Details :02 Systolic blood pressure 114 mm[Hg] Status: Comments : Location: LUE; Position: Sitting Diastolic blood pressure 79 mm[Hg] Status: Comment s: Location: LUE; Position: Sitting Body height 61 in Status: Weight 144 lb Status: Body mass index (BMI) [Ratio] 27.21 kg/m2 Status: Body surface area Derived from formula 1.64 m2 S tatus: Body temperature 97.3 f Status: Comments: Me thod: Temporal Heart Rate 77 /min Status: Respiratory rate 16 /min Status: 09-Nov-20198:06 Systolic blood pressure 103 mm[Hg] Status: Comments : Location: LUE; Position: Sitting Diastolic blood pressure 71 mm[Hg] Status: Comment s: Location: LUE; Position: Sitting Body height 61 in Status: Weight 144.3125 lb Status: Body mass index (BMI) [Ratio] 27.27 kg/m2 Status: Body surface area Derived from formula 1.64 m2 S tatus: Heart Rate 73 /min Status: Results Date Description Value Details Results not documented Plan of Care Name Dates Details Planned Observations Planned Goals not documented Planned Encounters Appointment; Mg Swift M.D. On: 30-Nov-2019 14:15 Appointment; SHAWN WANG M.D. On: 09-May-2020 8:00 Appointment; DHRUV NAVARRO M.D. On: 12-May-2020 8:00 Instructions Name Dates Details Instructions not documented [...] Diagnosis: Problem not documented On: 11-Oct-2019 8:15 Appointment; SHAWN WANG M.D. Encounter Diagnosis: Problem not documented On: 09-Nov-2019 8:00 Appointment; DHRUV NAVARRO M.D. Encounter Diagnosis: Problem not documented On: 12-Nov-2019 8:15
--- OUTSIDE RECORDS SUMMARY | 2020-05-05 11:33 | XMS REPORT | Summary of Care ---
Author Author [facility] Address [address] [place] [address] Phone Unavailable Care Team Providers Care Scientific Diver Name Role Phone KATHLEEN Forbes, SHAWN Unavailable Unavailable MELANIE Forbes, DHRUV Unavailable Unavailable MELANIE COHEN, DHRUV Unavailable Unavailable FREDDIE CARVALHO MD Unavailable Unavailable EMIL COHEN [place], LUBA FORD Unavailable Unavailable Kathleen COHEN, Shawn Unavailable Unavailable JENNIFER COHEN [place], GIDEON JAMES Unavailable Unavailable ESTEVAN COHEN [place], CAMERON Unavailable Unavailable Unavailable Unavailable Functional Status [...] D deficiency (268.9, E55.9) Status: Active 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 * Quantity: 90 Refills: 1 SHAWN WANG M.D. * Start : 19-Feb-2018 Active metFORMIN HCl ER 500 MG Oral Tablet Extended Release 24 Hour TAKE 1 TABLET BY MOUTH EVERY DAY * Quantity: 90 Refills: 0 MELANIE Forbes DHRUV * Start : 28-Dec-2018 Active Multi [...] Forbes DHRUV * Start : 09-Mar-2019 Active Allergies [...] Z87.442) Status: Resolved Procedures Procedure Dates Details [QL] TSH, 3RD GENERATION W/REFLEX TO FT4 Date: 09-Nov-2019 History of Breast Surgery Removal Of Mammary Implant Bilater al Completed History of Abdominoplasty Completed History of Oophorectomy Completed History of Hysterectomy Completed History of Rotator Cuff Repair Completed Immunization Name Dates Details Fluzone Quadrivalent 0.5 ML Intramuscula r Suspension Lot #: [id number] on: 31-Oct-2016 Fluzone Quadrivalent 0.5 ML Intramuscula r Suspension Lot #: [id number] on: 09-Jul-2017 Fluzone Quadrivalent 0.5 ML Intramuscula r Suspension Lot #: [id number] on: 10-Jun-2018 Tdap Lot #: [id number] on: 10-Jun-2018 Hepatitis B, adult Lot #: [id number] on: 09-Apr-2019 Hepatitis B, adult Lot #: [id number] on: 15-Jun-2019 Fluzone Quadrivalent 0.5 ML Intramuscula r Suspension Lot #: [id number] on: 09-Jul-2019 Hepatitis B, adult Lot #: [...] smoker Vital Signs Date Test Result Details :06 BP Systolic 103 mm[Hg] Status: Comments: Lo cation: LUE; Position: Sitting BP Diastolic 71 mm[Hg] Status: Comments: Lo cation: LUE; Position: Sitting Height 61 in Status: Weight 144.3125 lb Status: Body Mass Index Calculated 27.27 kg/m2 Status: Body Surface Area Calculated 1.64 m2 Status: Heart Rate 73 /min Status: Results Date Description Value Details :16 [QLH] CBC (INCLUDES DIFF/PLT) WBC 4.8 {K/CMM} [...] (Above high thresh old) Range: 7.4-10.4 :16 [QL] Differential Segmented Neutrophils 43.0 % (Below low thresho ld) Range: 45.0-75.0 Monocytes 6.0 % Range: 2.0-12.0 Lymphocytes 49.0 % (Above high threshold) R shital: 20.0-40.0 Eosinophils 1.7 % Range: 0.0-4.0 Basophils 0.3 % Range: 0.0-1.0 Segs-Bands # 2.1 {K/CMM} Range: 1.5-8.1 Lymphocytes # 2.3 {K/CMM} Range: 1.0-5.5 Monocytes # 0.3 {K/CMM} Range: 0.0-0.8 Eosinophils # 0.1 {K/CMM} Range: 0.0-0.5 :16 [[facility]] CMP W/EGFR Sodium Level 143 {mEq/l} Range: 135-145 Potassium Level 4.3 {mEq/l} Range: 3.5-5.1 Chloride Level 109 {mEq/l} Range: 95-109 Carbon Dioxide 27 {mEq/l} Range: 24-32 AGAP 11.3 {mEq/l} Range: 10.0-20.0 Glucose Lvl 109 mg/dl (Above high threshold ) Range: 70-99 Comments: Adult reference range values reflect the clinical guidelinesof the [place] [employer]. Creatinine Lvl 0.90 mg/dl Range: [...] CALIPER database of pediatric reference intervals to the[facility] Electric Cloud analyzer (Clinical Biochemistry 46 (2013): 9107-0190). [facility] has not internally validated these referenceranges and [...] 1.680 {uIU/ml} Range: 0.360-3.7 40 :16 [QLH] TSH, 3RD GENERATION W/REFLEX TO FT 4 TSH 1.630 {uIU/ml} Range: 0.360-3.7 40 :16 [QLH] HEMOGLOBIN A1c Hemoglobin A1c 5.8 % (Above high threshold) Ra nge: <=5.6 Plan of Care Name Dates Details Planned Observations Planned Goals not documented Planned Encounters Appointment; SHAWN WANG M.D. On: 09-May-2020 8:00 Instructions Name Dates Details Instructions not [...]
--- OUTSIDE RECORDS SUMMARY | 2020-05-05 11:33 | XMS REPORT | Summary of Care ---
Author Author LIBBY WANG M.D. Organization Unknown Address [facility] Phone Unavailable Care Team Providers Care Dealer Development Manager Name Role Phone SHAWN WANG M.D. Unavailable Unavailable MELANIE Forbes, DHRUV Unavailable Unavailable MELANIE COHEN, DHRUV Unavailable Unavailable MAIA COHEN, FREDDIE Unavailable Unavailable EMIL COHEN [place], LUBA FORD Unavailable Unavailable Lily COHEN, Shawn Unavailable Unavailable JENNIFER COHEN [place], GIDEON JAMES Unavailable Unavailable ESTEVAN COHEN [place], CAMERON Unavailable Unavailable Unavailable Unavailable Functional Status Name Dates Details Functional status health issues are not documented Status: Name Dates Details Cognitive status health issues are not d ocumented Status: Problems Name Dates Details Mammogram abnormal (793.80, R92.8) Status: Active Coracoid impingement of right shoulder ( 726.2, M75.41) Status: Active Acute internal derangement of knee, righ t (717.9, M23.91) Status: Active Allergic contact dermatitis due to other agents (692.89, L23.89) Status: Active Other rosacea (695.3, L71.8) Status: Active Nevus spilus of abdominal wall (216.5, D 22.5) Status: Active Solar lentigo (709.09, L81.4) Status: Active 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 12, Z12.31) Status: Active Prediabetes (790.29, R73.03) Status: Active Supraspinatus tendon tear, right, initia l encounter Status: Active Right hip pain (719.45, M25.551) Status: Active Nail disorder (703.9, L60.9) Status: Active Vitamin D deficiency (268.9, E55.9) Status: Active Iron deficiency (280.9, E61.1) Status: Active Right shoulder tendinitis (726.10, M75.8 1) Status: Active Golfers elbow of right upper extremity ( 726.31, M77.01) Status: Active Screening for HIV (human immunodeficienc y virus) (V73.89, Z11.4) Status: Active Need for Tdap vaccination (V06.1, Z23) Status: Active Need for shingles vaccine (V04.89, Z23) Status: Active Chronic back pain (724.5, M54.9) Status: Active Bilateral hip pain (719.45, M25.551) Status: Active Need for hepatitis C screening test (V73 .89, Z11.59) Status: Active Rectal bleed (569.3, K62.5) Status: Active Ovarian cyst, left (620.2, N83.202) Status: Active Bilateral renal cysts (753.10, N28.1) Status: Active B12 deficiency (266.2, E53.8) Status: Active Dyslipidemia (272.4, E78.5) Status: Active Acquired hypothyroidism (244.9, E03.9) Status: Active BMI (body mass index) 20.0-29.9 Status: Active Bilateral anterior knee pain (719.46, M2 5.561) Status: Active Need for influenza vaccination (V04.81, Z23) Status: Active Abnormal LFTs (790.6, R94.5) Status: Active Bilateral kidney stones (592.0, N20.0) Status: Active Need for hepatitis B vaccination (V05.3, Z23) Status: Active Traumatic rotator cuff tear, right, init ial encounter (840.4, S46.011A) Status: Active Medications Name Dates Details Atorvastatin Calcium 20 MG Oral Tablet TAKE 1 TABLET BY MOUTH EVERY NIGHT AT BEDTIME Quantity: 15 MELANIE Forbes, DHRUV * Start : 28-May-2017 Active Levothyroxine Sodium 75 MCG Oral Tablet TAKE 1 TABLET PO DAILY. * Quantity: 90 Refills: 1 SHAWN WANG M.D. * Start : 19-Feb-2018 Active metFORMIN HCl ER 500 MG Oral Tablet Extended Release 24 Hour TAKE 1 TABLET BY MOUTH EVERY DAY * Quantity: 90 Refills: 0 DHRUV NAVARRO M.D. * Start : 28-Dec-2018 Active Multi Vitamin TABS TAKE 1 TABLET DAILY. * Refills: 0 Active Vitamin D3 50 MCG (2000 UT) Oral Tablet Take 1 tab PO daily * Refills: 0 Active Calcium 600 MG Oral Tablet TAKE 1 TAB BID * Refills: 0 Active Lancets Check twice daily * Quantity: 100 Refills: 1 MELANIE Forbes DHRUV * Start : 09-Mar-2019 Active Glucose Meter Test In Vitro Strip USE DIRECTED TWICE A DAY * Quantity: 100 Refills: 1 DHRUV NAVARRO M.D. * Start : 09-Mar-2019 Active Allergies and [...] Z87.442) Status: Resolved Procedures Procedure Dates Details [[facility]] TSH, 3RD GENERATION W/REFLEX TO FT4 Date: 09-Nov-2019 History of Breast Surgery Removal Of Mammary Implant Bilater al Completed History of Abdominoplasty Completed History of Oophorectomy Completed History of Rotator Cuff Repair Completed History of Hysterectomy Completed Immunization Name Dates Details Fluzone Quadrivalent 0.5 ML Intramuscula r Suspension Lot #: [id number] on: 31-Oct-2016 Fluzone Quadrivalent 0.5 ML Intramuscula r Suspension Lot #: [id number] on: 09-Jul-2017 Fluzone Quadrivalent 0.5 ML Intramuscula r Suspension Lot #: [id number] on: 10-Jun-2018 Tdap Lot #: [id number] on: 10-Jun-2018 Hepatitis B, adult Lot #: [id number] on: 09-Apr-2019 Hepatitis B, adult Lot #: [id number] on: 15-Jun-2019 Fluzone Quadrivalent 0.5 ML Intramuscula r Suspension Lot #: [id number] on: 09-Jul-2019 Hepatitis B, adult Lot #: [id number] on: 11-Oct-2019 Family History Name Dates Details Family history of hypertension (V17.49, Z82.49) Status: Active Family history of cerebrovascular accide nt (CVA) (V17.1, Z82.3) Status: Active Family history of Diabetes mellitus due to underlying condition with other ophthalmic complication (249.50, E08.39) Status: Active Name Dates Details Family history [...] (Above high thresh old) Range: 7.4-10.4 :16 [[facility]] Differential Segmented Neutrophils 43.0 % (Below low thresho ld) Range: 45.0-75.0 Monocytes 6.0 % Range: 2.0-12.0 Lymphocytes 49.0 % (Above high threshold) R shital: 20.0-40.0 Eosinophils 1.7 % Range: 0.0-4.0 Basophils 0.3 % Range: 0.0-1.0 Segs-Bands # 2.1 {K/CMM} Range: 1.5-8.1 Lymphocytes # 2.3 {K/CMM} Range: 1.0-5.5 Monocytes # 0.3 {K/CMM} Range: 0.0-0.8 Eosinophils # 0.1 {K/CMM} Range: 0.0-0.5 :16 [[facility]] CMP W/EGFR Sodium Level 143 {mEq/l} Range: 135-145 Potassium Level 4.3 {mEq/l} Range: 3.5-5.1 Chloride Level 109 {mEq/l} Range: 95-109 Carbon Dioxide 27 {mEq/l} Range: 24-32 AGAP 11.3 {mEq/l} Range: 10.0-20.0 Glucose Lvl 109 mg/dl (Above high threshold ) Range: 70-99 Comments: Adult reference range values reflect the clinical guidelinesof the [place] [employer]. Creatinine Lvl 0.90 mg/dl Range: [...] CALIPER database of pediatric reference intervals to the[facility] Video[employer].es analyzer (Clinical Biochemistry 46 (2013): 5433-2688). [facility] has not internally validated these referenceranges and [...] of Care Name Dates Details Planned Observations [[facility]] TSH, 3RD GENERATION W/REFLEX TO FT4 On: 020 Intent Planned Goals not documented Planned Encounters Appointment; DHRUV NAVARRO M.D. On: 12-Nov-2019 8:15 Appointment; SHAWN WANG M.D. On: 09-May-2020 8:00 Interventions Provided Medication Changes* Levothyroxine Sodium 75 MCG Oral Tablet - Renew Discussion/Summary* 54 yo F with hypothyroidism here for f/u. * TSH is nml, euthyroid. Cont LT4 75 mcg daily, taking appropriately. Informed her will be on LT4 indefinitely, should not stop it. Cont mnt and exercise for weight loss. Will check TSH w/refl FT4 in 6 mos and have her f/u. Instructions Name Dates Details Instructions not documented [...]
--- OUTSIDE RECORDS SUMMARY | 2020-05-05 11:33 | XMS REPORT | Summary of Care ---
Author Author LIBBY Eduardo M.A. 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 * Start : 09-Mar-2019 Active Glucose Meter [...] 0.5 ML Intramuscula r Suspension Lot #: [id number] on: 31-Oct-2016 Fluzone Quadrivalent 0.5 ML Intramuscula r Suspension Lot #: [id number] on: 09-Jul-2017 Fluzone Quadrivalent 0.5 ML Intramuscula r Suspension Lot #: [id number] on: 10-Jun-2018 Tdap Lot #: [id number] on: 10-Jun-2018 Hepatitis B, adult Lot #: [id number] on: 09-Apr-2019 Hepatitis B, adult Lot #: [id number] on: 15-Jun-2019 Fluzone Quadrivalent 0.5 ML Intramuscula r Suspension Lot #: [id number] on: 09-Jul-2019 Hepatitis B, adult Lot #: [...] (Above high thresh old) Range: 7.4-10.4 :16 [[facility]] Differential Segmented Neutrophils 43.0 % (Below low thresho ld) Range: 45.0-75.0 Monocytes 6.0 % Range: 2.0-12.0 Lymphocytes 49.0 % (Above high threshold) R shital: 20.0-40.0 Eosinophils 1.7 % Range: 0.0-4.0 Basophils 0.3 % Range: 0.0-1.0 Segs-Bands # 2.1 {K/CMM} Range: 1.5-8.1 Lymphocytes # 2.3 {K/CMM} Range: 1.0-5.5 Monocytes # 0.3 {K/CMM} Range: 0.0-0.8 Eosinophils # 0.1 {K/CMM} Range: 0.0-0.5 :16 [[facility]] CMP W/EGFR Sodium Level 143 {mEq/l} Range: 135-145 Potassium Level 4.3 {mEq/l} Range: 3.5-5.1 Chloride Level 109 {mEq/l} Range: 95-109 Carbon Dioxide 27 {mEq/l} Range: 24-32 AGAP 11.3 {mEq/l} Range: 10.0-20.0 Glucose Lvl 109 mg/dl (Above high threshold ) Range: 70-99 Comments: Adult reference range values reflect the clinical guidelinesof the [place] [employer]. Creatinine Lvl 0.90 mg/dl Range: [...] CALIPER database of pediatric reference intervals to the[facility].[employer] analyzer (Clinical Biochemistry 46 (2013): 4247-8804). [facility] [employer] has not internally validated these referenceranges and [...]
--- OUTSIDE RECORDS SUMMARY | 2020-05-05 11:33 | XMS REPORT | Summary of Care ---
Author Author [facility] Address [address] [place] [address] Phone Unavailable Care Team Providers Care Rug Designer Name Role Phone KATHLEEN Forbes, SHAWN Unavailable Unavailable MELANIE Forbes, DHRUV Unavailable Unavailable MELANIE COHEN, DHRUV Unavailable Unavailable FREDDIE CARVALHO MD Unavailable Unavailable EMIL COHEN [place], LUBA FORD Unavailable Unavailable Kathleen COHEN, Shawn Unavailable Unavailable JENNIFER COHEN [place], GIDEON JAMES Unavailable Unavailable ESTEVAN COHEN NM, CAMERON Unavailable Unavailable Unavailable Unavailable Functional Status [...] D deficiency (268.9, E55.9) Status: Active Other group home (current) drug therapy ( V58.69, Z79.899) Status: Active Screening mammogram, encounter for (V76. 12, Z12.31) Status: Active Bilateral kidney stones (592.0, N20.0) Status: Active Rectal bleed (569.3, K62.5) Status: Active Golfers elbow of right upper extremity ( 726.31, M77.01) Status: Active B12 deficiency (266.2, E53.8) Status: Active Fatty liver (571.8, K76.0) Status: Active Mammogram abnormal (793.80, R92.8) Status: Active Abnormal LFTs (790.6, R94.5) Status: Active Need for hepatitis B vaccination (V05.3, Z23) Status: Active Traumatic rotator cuff tear, right, init ial encounter (840.4, S46.011A) Status: Active Prediabetes (790.29, R73.03) Status: Active Ovarian cyst, left (620.2, N83.202) Status: Active Need for influenza vaccination (V04.81, Z23) Status: Active Hypothyroidism (244.9, E03.9) Status: Active Dyslipidemia (272.4, E78.5) Status: Active Acquired hypothyroidism (244.9, E03.9) Status: Active Iron deficiency (280.9, E61.1) Status: Active Abnormal CBC measurement (790.6, R79.89) Status: Active Stage 2 chronic kidney disease (585.2, N 18.2) Status: Active Tremor, essential (333.1, G25.0) Status: Active BMI (body mass index) 20.0-29.9 Status: Active Medications Name Dates Details Atorvastatin Calcium 20 MG Oral Tablet TAKE 1 TABLET BY MOUTH EVERY NIGHT AT BEDTIME Quantity: 90 SATTAR Leidy, DHRUV * Start : 28-May-2017 Active Levothyroxine Sodium 75 MCG Oral Tablet TAKE 1 TABLET PO DAILY. * Quantity: 90 Refills: 1 SHAWN WANG M.D. * Start : 19-Feb-2018 Active metFORMIN HCl ER 500 MG Oral Tablet Extended Release 24 Hour TAKE 1 TABLET BY MOUTH EVERY DAY * Quantity: 90 Refills: 1 MELANIE Forbes DHRUV * Start : 28-Dec-2018 [...] DAY * Quantity: 100 Refills: 1 MELANIE Forbes, [...] 0.5 ML Intramuscula r Suspension Lot #: [id number] on: 31-Oct-2016 Fluzone Quadrivalent 0.5 ML Intramuscula r Suspension Lot #: [id number] on: 09-Jul-2017 Fluzone Quadrivalent 0.5 ML Intramuscula r Suspension Lot #: [id number] on: 10-Jun-2018 Tdap Lot #: [id number] on: 10-Jun-2018 Hepatitis B, adult Lot #: [id number] on: 09-Apr-2019 Hepatitis B, adult Lot #: [id number] on: 15-Jun-2019 Shingrix 50 MCG Intramuscular Suspension Reconstituted on: 06-Jul-2019 Fluzone Quadrivalent 0.5 ML Intramuscula r Suspension Lot #: [id number] on: 09-Jul-2019 Shingrix 50 MCG Intramuscular Suspension [...] smoker Vital Signs Date Test Result Details :02 BP Systolic 114 mm[Hg] Status: Comments: Lo cation: LUE; Position: Sitting BP Diastolic 79 mm[Hg] Status: Comments: Lo cation: LUE; Position: Sitting Height 61 in Status: Weight 144 lb Status: Body Mass Index Calculated 27.21 kg/m2 Status: Body Surface Area Calculated 1.64 m2 Status: Temperature 97.3 f Status: Comments: Me thod: Temporal Heart Rate 77 /min Status: Respiration Rate 16 /min Status: :06 BP Systolic 103 mm[Hg] Status: Comments: Lo cation: LUE; Position: Sitting BP Diastolic 71 mm[Hg] Status: Comments: Lo cation: LUE; Position: Sitting Height 61 in Status: Weight 144.3125 lb Status: Body Mass Index Calculated 27.27 kg/m2 Status: Body Surface Area Calculated 1.64 m2 Status: Heart Rate 73 /min Status: Results Date Description Value Details :16 [QL] CBC (INCLUDES DIFF/PLT) WBC 4.8 {K/CMM} [...] Eosinophils # 0.1 {K/CMM} Range: 0.0-0.5 :16 [QL] CMP W/EGFR Sodium Level 143 {mEq/l} Range: 135-145 Potassium Level 4.3 {mEq/l} Range: 3.5-5.1 Chloride Level 109 {mEq/l} Range: 95-109 Carbon Dioxide 27 {mEq/l} Range: 24-32 AGAP 11.3 {mEq/l} Range: 10.0-20.0 Glucose Lvl 109 mg/dl (Above high threshold ) Range: 70-99 Comments: Adult reference range values reflect the clinical guidelinesof the [place] Diabetes Association. Creatinine Lvl 0.90 mg/dl Range: [...] CALIPER database of pediatric reference intervals to theA[facility] EdmondDragon Inside analyzer (Clinical Biochemistry 46 (2013): 4600-3086). [facility] [employer] has not internally validated these referenceranges and [...] shouldbe multiplied by the estimated BMI. :16 [QL] FERRITIN Ferritin Lvl 70 ng/ml Range: 5-204 04-Dix-37140:16 [QL] LIPID PANEL Chol 196 mg/dl Range: [...] TSH 1.630 {uIU/ml} Range: 0.360-3.7 40 :16 [[facility]] HEMOGLOBIN A1c Hemoglobin A1c 5.8 % (Above [...]
--- OUTSIDE RECORDS SUMMARY | 2020-05-05 11:33 | XMS REPORT | Summary of Care ---
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 * Quantity: 90 Refills: 1 SHAWN WANG M.D. * Start : 19-Feb-2018 Active metFORMIN HCl ER 500 MG Oral Tablet Extended Release 24 Hour TAKE 1 TABLET BY MOUTH EVERY DAY * Quantity: 90 Refills: 1 SATTAR M.D., DHRUV * Start : 28-Dec-2018 Active Multi [...] M.D., DHRUV * Start : 09-Mar-2019 Active Glucose Meter Test In Vitro Strip USE DIRECTED TWICE A DAY * Quantity: 100 Refills: 1 SATTAR M.D., DHRUV * Start : 09-Mar-2019 Active Allergies [...] 0.5 ML Intramuscula r Suspension Lot #: [id number] on: 31-Oct-2016 Fluzone Quadrivalent 0.5 ML Intramuscula r Suspension Lot #: [id number] on: 09-Jul-2017 Fluzone Quadrivalent 0.5 ML Intramuscula r Suspension Lot #: [id number] on: 10-Jun-2018 Tdap Lot #: [id number] on: 10-Jun-2018 Hepatitis B, adult Lot #: [id number] on: 09-Apr-2019 Hepatitis B, adult Lot #: [id number] on: 15-Jun-2019 Shingrix 50 MCG Intramuscular Suspension Reconstituted on: 06-Jul-2019 Fluzone Quadrivalent 0.5 ML Intramuscula r Suspension Lot #: [id number] on: 09-Jul-2019 Shingrix 50 MCG Intramuscular Suspension [...] guidelinesof the [place] Diabetes Association. Creatinine Lvl 0.90 mg/dl Range: [...] CALIPER database of pediatric reference intervals to [employer] AMD analyzer (Clinical Biochemistry 46 (2013): 4658-4377). [facility] [employer] has not internally validated these referenceranges [...] shouldbe multiplied by the estimated BMI. :16 [[facility]] FERRITIN Ferritin Lvl 70 ng/ml Range: 5-204 :16 [QL] LIPID PANEL Chol 196 mg/dl Range: <=199 Trig 83 mg/dl Range: <=149 HDL Cholesterol 69 mg/dl Range: >=61 CHD Risk 2.84 (Below low threshold) Ran ge: 3.90-5.80 LDL 110 mg/dl (Above high threshold ) Range: <=99 VLDL 17 :16 [[facility]] TSH, 3RD GENERATION W/REFLEX TO FT 4 TSH 1.680 {uIU/ml} Range: 0.360-3.7 40 :16 [QL] TSH, 3RD GENERATION W/REFLEX TO FT 4 TSH 1.630 {uIU/ml} Range: 0.360-3.7 40 :16 [[facility]] HEMOGLOBIN A1c Hemoglobin A1c 5.8 % (Above high threshold) Ra nge: <=5.6 Plan of Care Name Dates Details Planned Observations Planned Goals not documented Planned Encounters Appointment; SHAWN WANG M.D. On: 09-May-2020 8:00 Appointment; DHRUV NAVARRO M.D. On: 12-May-2020 8:00 Interventions Provided Medication Changes* Atorvastatin Calcium 20 MG Oral Tablet - Renew * metFORMIN HCl ER 500 MG Oral Tablet Extended Release 24 Hour - Renew Labs/Procedures/Imaging* Tobacco Use Screening; Done: 12 Nov 2019 * Tobacco Use Screening; Done: 12 Nov 2019 Follow-ups/Referrals* Hematology Referral; To Be Done: 12 Nov 2019 * Nephrology Referral; To Be Done: 12 Nov 2019 * Neurology Referral; To Be Done: 12 Nov 2019 Plan* Medication compliance reenforced * Refer to hematology for further eval * refer to renal for further eval * discussed CBT, med management pt wishes to defer for now * refer to neuro for further eval * Return to clinic in 6 months, sooner if needed * Please seek early care if not getting better or getting worse or new change in condition * Please call us back if you don't hear from the office about your labs, imaging or referral in a week. Instructions Name Dates Details Instructions not documented [...]
--- OUTSIDE RECORDS SUMMARY | 2020-05-05 11:33 | XMS REPORT | Summary of Care ---
Author Author MELANIE Forbes, LIBBY BARTLETT Organization Unknown Address Unknown Phone Unavailable Care Team Providers Care Modern Greek Studies Professor Name Role Phone KATHLEEN Forbes, SHAWN Unavailable Unavailable MELANIE Forbes, DHRUV Unavailable Unavailable MELANIE COHEN, DHRUV Unavailable Unavailable MAIA COHEN, FREDDIE Unavailable Unavailable EMIL COHEN [place], LUBA FORD Unavailable Unavailable Kathleen COHEN, Shawn Unavailable Unavailable JENNIFER COHEN [place], GIDEON JAMES Unavailable Unavailable ESTEVAN COHEN [place], CAMERON Unavailable Unavailable Unavailable Unavailable Functional Status [...] D deficiency (268.9, E55.9) Status: Active Other [facility] (current) drug therapy ( V58.69, Z79.899) Status: [...] DAY * Quantity: 90 Refills: 1 SATTAR Renu.Laxmi, DHRUV * Start : 28-Dec-2018 Active Multi Vitamin TABS TAKE 1 TABLET DAILY. * Refills: 0 Active Vitamin D3 50 MCG (2000 UT) Oral Tablet Take 1 tab PO daily * Refills: 0 Active Calcium 600 MG Oral Tablet TAKE 1 TAB BID * Refills: 0 Active Lancets Check twice daily * Quantity: 100 Refills: 1 SATTAR M.Laxmi, DHRUV * Start : 09-Mar-2019 Active Glucose [...] Z87.442) Status: Resolved Procedures Procedure Dates Details [[facility]] TSH, 3RD GENERATION W/REFLEX TO FT4 Date: 09-Nov-2019 History of Breast Surgery Removal Of Mammary Implant Eric al Completed History of Abdominoplasty Completed History of Oophorectomy Completed History of Hysterectomy Completed History of Rotator Cuff Repair Completed Immunization Name Dates Details Fluzone Quadrivalent 0.5 ML Intramuscula r Suspension Lot #: [id number] on: 31-Oct-2016 Fluzone Quadrivalent 0.5 ML Intramuscula r Suspension Lot #: [id number] on: 09-Jul-2017 Fluzone Quadrivalent 0.5 ML Intramuscula r Suspension Lot #: [id number] on: 10-Jun-2018 Tdap Lot #: [id number] on: 10-Jun-2018 Hepatitis B, adult Lot #: [id number] on: 09-Apr-2019 Hepatitis B, adult Lot #: [id number] on: 15-Jun-2019 Shingrix 50 MCG Intramuscular Suspension Reconstituted on: 06-Jul-2019 Fluzone Quadrivalent 0.5 ML Intramuscula r Suspension Lot #: [id number] on: 09-Jul-2019 Shingrix 50 MCG Intramuscular Suspension [...] range values reflect the clinical guidelinesof the [place] Diabetes Association. Creatinine Lvl 0.90 mg/dl Range: [...] CALIPER database of pediatric reference intervals to [employer] analyzer (Clinical Biochemistry 46 (2013): 7756-3138). [facility] [employer] has not internally validated these referenceranges and [...] FERRITIN Ferritin Lvl 70 ng/ml Range: 5-204 27-Tqp-97703:16 [QLH] LIPID PANEL Chol 196 mg/dl Range: [...] TSH 1.630 {uIU/ml} Range: 0.360-3.7 40 :16 [QL] HEMOGLOBIN A1c Hemoglobin A1c 5.8 % [...] Use Screening; Done: 12 Nov 2019 Follow-ups/Referrals* Nephrology Referral; To Be Done: 12 Nov [...]
--- OUTSIDE RECORDS SUMMARY | 2020-05-05 11:33 | XMS REPORT | Summary of Care ---
Author Author LIBBY Barnett Organization Unknown Address Unknown Phone Unavailable Care Team Providers Care Shaker Tender Name Role Phone Cristy Barnett Unavailable Unavailable KATHLEEN Forbes, SHAWN Unavailable Unavailable MELANIE Forbes, DHRUV Unavailable Unavailable MELANIE COHEN, DHRUV Unavailable Unavailable MAIA COHEN, FREDDIE Unavailable Unavailable EMIL COHEN [place], LUBA FORD Unavailable Unavailable Kathleen COHEN, Shawn Unavailable Unavailable JENNIFER COHEN IN, GIDEON JAMES Unavailable Unavailable ESTEVAN COHEN [place], CAMERON Unavailable Unavailable Unavailable Unavailable Functional Status [...] D deficiency (268.9, E55.9) Status: Active 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 * Refills: 0 Active Vitamin D3 50 MCG (2000 UT) Oral Tablet Take 1 tab PO daily * Refills: 0 Active Calcium 600 MG Oral Tablet TAKE 1 TAB BID * Refills: 0 Active Lancets Check twice daily * Quantity: 100 Refills: 1 SATYAIMAR Leidy, DHRUV * Start : 09-Mar-2019 Active Glucose Meter Test In Vitro Strip USE DIRECTED TWICE A DAY * Quantity: 100 Refills: 1 SATYAIMAR Leidy, DHRUV * Start : 09-Mar-2019 Active Allergies [...] 0.5 ML Intramuscula r Suspension Lot #: [id number] on: 31-Oct-2016 Fluzone Quadrivalent 0.5 ML Intramuscula r Suspension Lot #: [id number] on: 09-Jul-2017 Fluzone Quadrivalent 0.5 ML Intramuscula r Suspension Lot #: [id number] on: 10-Jun-2018 Tdap Lot #: [id number] on: 10-Jun-2018 Hepatitis B, adult Lot #: [id number] on: 09-Apr-2019 Hepatitis B, adult Lot #: [id number] on: 15-Jun-2019 Shingrix 50 MCG Intramuscular Suspension Reconstituted on: 06-Jul-2019 Fluzone Quadrivalent 0.5 ML Intramuscula r Suspension Lot #: [id number] on: 09-Jul-2019 Shingrix 50 MCG Intramuscular Suspension [...] range values reflect the clinical guidelinesof the [place] Diabetes Association. Creatinine Lvl 0.90 mg/dl Range: [...] CALIPER database of pediatric reference intervals to the[facility] [employer] analyzer (Clinical Biochemistry 46 (2013): 6476-0297). [facility] [employer] has not internally validated these referenceranges and [...] FERRITIN Ferritin Lvl 70 ng/ml Range: 5-204 79-Jcx-83381:16 [QLH] LIPID PANEL Chol 196 mg/dl Range: [...] Observations Planned Goals not documented Planned Encounters Hematology Referral Appointment; Mg Swfit M.D. On: 30-Nov-2019 14:15 Appointment; SHAWN WANG [...] Problem not documented On: 10-Dec-2018 10:15 Appointment; HDRUV NAVARRO M.D. Encounter Diagnosis: Problem not documented [...]
--- OUTSIDE RECORDS SUMMARY | 2020-05-05 11:33 | XMS REPORT | Summary of Care ---
Author Author [facility] Address [address] [place] [address] Phone Unavailable Care Team Providers Care Dumper [employer]ing [employer] Name Role Phone KATHLEEN Forbes, SHAWN Unavailable [...] ocumented Status: Problems Name Dates Details Right shoulder tendinitis (726.10, M75.8 1) Status: Active Right hip pain (719.45, M25.551) Status: Active Bilateral anterior knee pain (719.46, M2 5.561) Status: Active Acute internal derangement of knee, [...] D deficiency (268.9, E55.9) Status: Active Other [facility] (current) drug therapy ( V58.69, Z79.899) Status: [...] 20.0-29.9 Status: Active Medications Name Dates Details Levothyroxine Sodium 75 MCG Oral Tablet TAKE 1 TABLET PO DAILY. Quantity: 90 KATHLEEN Leidy, SHAWN * Start : 19-Feb-2018 Active Multi Vitamin TABS TAKE 1 TABLET DAILY. * Refills: 0 Active Atorvastatin Calcium 20 MG Oral Tablet TAKE 1 TABLET BY MOUTH EVERY NIGHT AT BEDTIME * Quantity: 90 Refills: 0 SATTAR Leidy, DHRUV * Start : 28-May-2017 Active metFORMIN HCl ER 500 MG Oral Tablet Extended Release 24 Hour TAKE 1 TABLET BY MOUTH EVERY DAY * Quantity: 90 Refills: 1 SATTAR Leidy, DHRUV * Start : 28-Dec-2018 Active Glucose Meter Test In Vitro Strip USE DIRECTED TWICE A DAY * Quantity: 100 Refills: 1 SATTAR Leidy, DHRUV * Start : 09-Mar-2019 Active Lancets Check twice daily * Quantity: 100 Refills: 1 SATTAR Leidy, DHRUV * Start : 09-Mar-2019 Active Calcium 600 MG Oral Tablet TAKE [...] Completed History of Abdominoplasty Completed History of Hysterectomy Completed History of Oophorectomy Completed History of Rotator Cuff Repair Completed Immunization Name Dates Details Fluzone Quadrivalent 0.5 ML Intramuscula r Suspension Lot #: [id number] on: 31-Oct-2016 Fluzone Quadrivalent 0.5 ML Intramuscula r Suspension Lot #: [id number] on: 09-Jul-2017 Fluzone Quadrivalent 0.5 ML Intramuscula r Suspension Lot #: [id number] on: 10-Jun-2018 Tdap Lot #: [id number] on: 10-Jun-2018 Hepatitis B, adult Lot #: [id number] on: 09-Apr-2019 Hepatitis B, adult Lot #: [id number] on: 15-Jun-2019 Shingrix 50 MCG Intramuscular Suspension Reconstituted on: 06-Jul-2019 Fluzone Quadrivalent 0.5 ML Intramuscula r Suspension Lot #: [id number] on: 09-Jul-2019 Shingrix 50 MCG Intramuscular Suspension [...] range values reflect the clinical guidelinesof the [place] Diabetes Association. Creatinine Lvl 0.90 mg/dl Range: [...] CALIPER database of pediatric reference intervals to thePush[facility]lersMe[facility] To You analyzer (Clinical Biochemistry 46 (2013): 3776-2470). [facility] has not internally validated these referenceranges and [...] eGFR shouldbe multiplied by the estimated BMI. 13-Pdx-06524:16 [QLH] FERRITIN Ferritin Lvl 70 ng/ml Range: 5-204 23-Cgu-88211:16 [QL] LIPID PANEL Chol 196 mg/dl Range: [...]
--- OUTSIDE RECORDS SUMMARY | 2020-05-05 11:33 | XMS REPORT | Summary of Care ---
Author LIBBY Esquivel M.A. [facility] Organization Unknown Address [facility] Phone Unavailable Care Team Providers Care Operations Officer Trust Department Name Role Phone KATHLEEN Forbes, SHAWN Unavailable Unavailable MELANIE Forbes, DHRUV Unavailable Unavailable MELANIE COHEN, DHRUV Unavailable Unavailable MAIA COHEN, FREDDIE Unavailable Unavailable EMIL COHEN [place], LUBA FORD Unavailable Unavailable Kathleen COHEN, Shawn Unavailable Unavailable JENNIFER COHEN [place], GIDEON JAMES Unavailable Unavailable ESTEVAN COHEN [place], CAMERON Unavailable Unavailable Unavailable Unavailable Functional Status [...] D deficiency (268.9, E55.9) Status: Active Other senior living (current) drug therapy ( V58.69, Z79.899) Status: [...] Z87.442) Status: Resolved Procedures Procedure Dates Details [[facility]] TSH, 3RD GENERATION W/REFLEX TO FT4 Date: 09-Nov-2019 History of Breast Surgery Removal Of Mammary Implant Bilater al Completed History of Abdominoplasty Completed History of Oophorectomy Completed History of Hysterectomy Completed History of Rotator Cuff Repair Completed Immunization Name Dates Details Fluzone Quadrivalent 0.5 ML Intramuscula r Suspension Lot #: [id number] on: 31-Oct-2016 Fluzone Quadrivalent 0.5 ML Intramuscula r Suspension Lot #: [id number] on: 09-Jul-2017 Fluzone Quadrivalent 0.5 ML Intramuscula r Suspension Lot #: [id number] on: 10-Jun-2018 Tdap Lot #: [id number] on: 10-Jun-2018 Hepatitis B, adult Lot #: [id number] on: 09-Apr-2019 Hepatitis B, adult Lot #: [id number] on: 15-Jun-2019 Fluzone Quadrivalent 0.5 ML Intramuscula r Suspension Lot #: [id number] on: 09-Jul-2019 Hepatitis B, adult Lot #: [...] range values reflect the clinical guidelinesof the [place] Diabetes Association. Creatinine Lvl 0.90 mg/dl Range: [...] CALIPER database of pediatric reference intervals to the[employer] analyzer (Clinical Biochemistry 46 (2013): 8541-5535). [facility] [employer] has not internally validated these referenceranges and [...] WANG M.D. On: 09-May-2020 8:00 Interventions Provided Labs/Procedures/Imaging* Tobacco Use Screening; Done: 12 Nov 2019 Instructions Name Dates Details Instructions not documented [...]
--- OUTSIDE RECORDS SUMMARY | 2020-05-05 11:34 | XMS REPORT | Summary of Care ---
Author Author LIBBY Eduardo M.A. Organization Unknown Address [facility] Phone Unavailable Care Team Providers Care Building Engineer Name Role Phone Jamison Forbes, Mg Unavailable Unavailable KATHLEEN Forbes, SHAWN Unavailable Unavailable MELANIE Forbes, DHRUV Unavailable Unavailable MELANIE COHEN, DHRUV Unavailable Unavailable MAIA COHEN, FREDDIE Unavailable Unavailable EMIL COHEN [place], LUBA FORD Unavailable Unavailable Kathleen COHEN, Shawn Unavailable Unavailable JENNIFER COHEN [place], GIDEON JAMES Unavailable Unavailable ESTEVAN COHEN [place], CAMERON Unavailable Unavailable Unavailable Unavailable Functional Status [...] D deficiency (268.9, E55.9) Status: Active Other residential (current) drug therapy ( V58.69, Z79.899) Status: [...] 3RD GENERATION W/REFLEX TO FT4 Date: 09-Nov-2019 [QLH] FOLATE, SERUM Date: 30-Nov-2019 [Q] METHYLMALONIC ACID AND HOMOCYSTEINE (NUTRITIONAL A ND CONGENITAL) Date: 30-Nov-2019 [QLH] VITAMIN B12 Date: 30-Nov-2019 History of Breast Surgery Removal Of Mammary Implant Bilater al Completed History of Abdominoplasty Completed History of Hysterectomy Completed History of Oophorectomy Completed History of Rotator Cuff Repair Completed Immunization Name Dates Details Fluzone Quadrivalent 0.5 ML Intramuscula r Suspension Lot #: [id number] on: 31-Oct-2016 Fluzone Quadrivalent 0.5 ML Intramuscula r Suspension Lot #: [id number] on: 09-Jul-2017 Fluzone Quadrivalent 0.5 ML Intramuscula r Suspension Lot #: [id number] on: 10-Jun-2018 Tdap Lot #: [id number] on: 10-Jun-2018 Hepatitis B, adult Lot #: [id number] on: 09-Apr-2019 Hepatitis B, adult Lot #: [id number] on: 15-Jun-2019 Shingrix 50 MCG Intramuscular Suspension Reconstituted on: 06-Jul-2019 Fluzone Quadrivalent 0.5 ML Intramuscula r Suspension Lot #: [id number] on: 09-Jul-2019 Shingrix 50 MCG Intramuscular Suspension [...] (finding) Vital Signs Date Test Result Details [id number] Systolic blood pressure 124 mm[Hg] Status: Comments : Location: LUE; Position: Sitting Diastolic blood pressure 72 mm[Hg] Status: Comment s: Location: LUE; Position: Sitting Body height 61 in Status: Weight 148 lb Status: Body mass index (BMI) [Ratio] 27.96 kg/m2 Status: Body surface area Derived from formula 1.66 m2 S tatus: Heart Rate 75 /min Status: 12-Nov-20198:02 Systolic blood pressure 114 mm[Hg] Status: Comments : Location: LUE; Position: Sitting Diastolic blood pressure 79 mm[Hg] Status: Comment s: Location: LUE; Position: Sitting Body height 61 in Status: Weight 144 lb Status: Body mass index (BMI) [Ratio] 27.21 kg/m2 Status: Body surface area Derived from formula 1.64 m2 S tatus: Heart Rate 77 /min Status: Body temperature 97.3 f Status: Comments: Me thod: Temporal Respiratory rate 16 /min Status: :06 Systolic blood pressure 103 mm[Hg] Status: Comments : Location: E; Position: Sitting Diastolic blood pressure 71 mm[Hg] [...] NAVARRO M.D. On: 12-May-2020 8:00 Interventions Provided Labs/Procedures/Imaging* [Q] METHYLMALONIC ACID AND HOMOCYSTEINE (NUTRITIONAL AND CONGENITAL); To Be Done: 30 Nov 2019 * [QLH] FOLATE, SERUM; To Be Done: 30 Nov 2019 * [QLH] VITAMIN B12; To Be Done: 30 Nov 2019 Instructions Name Dates Details Instructions [...] Diagnosis: Problem not documented On: 12-Nov-2019 8:15 Appointment; Mg Swift M.D. Encounter Diagnosis: Problem not documented On: 30-Nov-2019 14:15
--- OUTSIDE RECORDS SUMMARY | 2020-05-05 11:34 | XMS REPORT | Summary of Care ---
Author Author LIBBY LITTLE APRN THER OLESYA Organization Unknown Address Unknown Phone Unavailable Care Team Providers Care Grocery Store Courtesy Clerk Name Role Phone KATHLEEN Forbes, SHAWN Unavailable Unavailable MATIAS Forbes, DIONE Unavailable Unavailable MELANIE Forbes, DHRUV Unavailable Unavailable MELANIE COHEN, DHRUV Unavailable Unavailable MAIA COHEN, FREDDIE Unavailable Unavailable EMIL COHEN DE, LUBA FORD Unavailable Unavailable Kathleen COHEN, Shawn Unavailable Unavailable JENNIFER COHEN DE, GIDEON JAMES Unavailable Unavailable ESTEVAN COHEN DE, CAMERON Unavailable Unavailable Unavailable Unavailable Functional Status [...] D deficiency (268.9, E55.9) Status: Active Other custodial (current) drug therapy ( V58.69, Z79.899) Status: [...] BMI (body mass index) 20.0-29.9 Status: Active Colon polyps (211.3, K63.5) Status: Active History of colon polyps (V12.72, Z86.010 ) Status: Active Colon cancer screening (V76.51, Z12.11) Status: Active Medications Name Dates Details Atorvastatin [...] daily * Quantity: 100 Refills: 1 SATTAR M.Alex., DHRUV * Start : 09-Mar-2019 Active Glucose [...] 3RD GENERATION W/REFLEX TO FT4 Date: 09-Nov-2019 [Q] METHYLMALONIC ACID AND HOMOCYSTEINE (NUTRITIONAL A ND CONGENITAL) Date: 30-Nov-2019 History of Breast Surgery Removal Of Mammary Implant Bilater al Completed History of Abdominoplasty Completed History of Oophorectomy Completed History of Hysterectomy Completed History of Rotator Cuff Repair Completed Immunization Name Dates Details Fluzone Quadrivalent 0.5 ML Intramuscula r Suspension Lot #: [id number] on: 31-Oct-2016 Fluzone Quadrivalent 0.5 ML Intramuscula r Suspension Lot #: [id number] on: 09-Jul-2017 Fluzone Quadrivalent 0.5 ML Intramuscula r Suspension Lot #: [id number] on: 10-Jun-2018 Tdap Lot #: [id number] on: 10-Jun-2018 Hepatitis B, adult Lot #: [id number] on: 09-Apr-2019 Hepatitis B, adult Lot #: [id number] on: 15-Jun-2019 Shingrix 50 MCG Intramuscular Suspension Reconstituted on: 06-Jul-2019 Fluzone Quadrivalent 0.5 ML Intramuscula r Suspension Lot #: [id number] on: 09-Jul-2019 Shingrix 50 MCG Intramuscular Suspension [...] (finding) Vital Signs Date Test Result Details [id number]-[id number]:12 Systolic blood pressure 124 mm[Hg] Status: Comments [...] thod: Temporal Respiratory rate 16 /min Status: Results Date Description Value Details 08-Dec-20198:00 [QL] VITAMIN B12 Vitamin B12 Level 361 pg/ml Range: 254-132 0 :00 [QL] FOLATE, SERUM Folate Level 20.5 ng/ml Range: >=3.0 Plan of Care Name Dates Details Planned Observations Planned Goals not documented Planned Encounters Appointment; DIONE SALCEDO M.D. On: 13-Dec-2019 10:00 Appointment; SHAWN WANG M.D. On: 09-May-2020 8:00 Appointment; DHRUV NAVARRO M.D. On: 12-May-2020 8:00 Instructions Name Dates Details Instructions not documented Encounters Appointment; DHRUV NAVARRO M.D. Encounter Diagnosis: Problem [...] Diagnosis: Problem not documented On: 30-Nov-2019 14:15 Appointment; DIONE SALCEDO M.D. Encounter Diagnosis: Problem not documented On: 13-Dec-2019 10:00
--- OUTSIDE RECORDS SUMMARY | 2020-05-05 11:34 | XMS REPORT | Summary of Care ---
Author Author Jamison Forbes, [facility] Unknown Address [facility] Phone Unavailable Care Team Providers Care Ship Mate Name Role Phone KATHLEEN Forbes, SHAWN Unavailable Unavailable MELANIE Forbes, DHRUV Unavailable Unavailable MELANIE COHEN, DHRUV Unavailable Unavailable MAIA COHEN, FREDDIE Unavailable Unavailable EMIL COHEN ND, LUBA FORD Unavailable Unavailable Kathleen COHEN, Shawn Unavailable Unavailable JENNIFER COHEN UT, GIDEON JAMES Unavailable Unavailable ESTEVAN COHEN ND, CAMERON Unavailable Unavailable Unavailable Unavailable Functional Status [...] D deficiency (268.9, E55.9) Status: Active Other [facility] (current) drug therapy ( V58.69, Z79.899) Status: [...] DAILY. * Quantity: 90 Refills: 1 KATHLEEN M.Alex., SHAWN * Start : 19-Feb-2018 Active metFORMIN HCl ER 500 MG Oral Tablet Extended Release 24 Hour TAKE 1 TABLET BY MOUTH EVERY DAY * Quantity: 90 Refills: 1 SATTAR M.Alex., DHRUV * Start : 28-Dec-2018 Active Multi Vitamin TABS TAKE 1 TABLET DAILY. * Refills: 0 M.A. Active Vitamin D3 50 MCG (2000 [place]) Oral Tablet Take 1 tab PO daily * Refills: 0 M.A. Active Calcium 600 MG Oral Tablet TAKE 1 TAB BID * Refills: 0 M.A. Active Lancets Check twice daily * Quantity: [...] 0.5 ML Intramuscula r Suspension Lot #: [id number] on: 31-Oct-2016 Fluzone Quadrivalent 0.5 ML Intramuscula r Suspension Lot #: [id number] on: 09-Jul-2017 Fluzone Quadrivalent 0.5 ML Intramuscula r Suspension Lot #: [id number] on: 10-Jun-2018 Tdap Lot #: [id number] on: 10-Jun-2018 Hepatitis B, adult Lot #: [id number] on: 09-Apr-2019 Hepatitis B, adult Lot #: [id number] on: 15-Jun-2019 Shingrix 50 MCG Intramuscular Suspension Reconstituted on: 06-Jul-2019 Fluzone Quadrivalent 0.5 ML Intramuscula r Suspension Lot #: [id number] on: 09-Jul-2019 Shingrix 50 MCG Intramuscular Suspension [...] (finding) Vital Signs Date Test Result Details [id number]-[id number]:12 Systolic blood pressure 124 mm[Hg] Status: Comments : Location: LUE; Position: Sitting Diastolic blood pressure 72 mm[Hg] Status: Comment s: Location: LUE; Position: Sitting Body height 61 in Status: Weight 148 lb Status: Body mass index (BMI) [Ratio] 27.96 kg/m2 Status: Body surface area Derived from formula 1.66 m2 S tatus: Heart Rate 75 /min Status: Results Date Description Value Details : [QLH] VITAMIN B12 Vitamin B12 Level 361 pg/ml Range: 254-132 0 [QLH] FOLATE, SERUM Folate Level 20.5 ng/ml Range: >=3.0 [H] Methylmalonic Acid and Homocysteine Methylmalonic Acid Quantitative 159 nmol/L Range: 0-378 Homocysteine Total 11.3 umol/L Range: 0.0-14 .5 Comments: Please note reference interval change Plan of Care Name Dates Details Planned Observations Planned Goals not documented Planned Encounters Appointment; DIONE SALCEDO M.D. On: 13-Dec-2019 10:00 Appointment; SHAWN WANG M.D. On: 09-May-2020 8:00 Appointment; DHRUV NAVARRO M.D. On: 12-May-2020 8:00 Instructions Name Dates Details Instructions not documented Encounters Appointment; SHAWN WANG M.D. Encounter Diagnosis: Problem [...]
--- OUTSIDE RECORDS SUMMARY | 2020-05-05 11:34 | XMS REPORT | Summary of Care ---
Author Author MATIAS Forbes, LIBBY Jeff Unknown Address Unknown Phone Unavailable Care Team Providers Care Chief Cardiopulmonary Technologist Name Role Phone KATHLEEN Forbes, SHAWN Unavailable Unavailable MATIAS Forbes, MANDEEP Unavailable Unavailable MELANIE Forbes, DHRUV Unavailable Unavailable MELANIE COHEN, DHRUV Unavailable Unavailable MAIA COHEN, FREDDIE Unavailable Unavailable EMIL COHEN IA, LUBA FORD Unavailable Unavailable Kathleen COHEN, Shawn Unavailable Unavailable JENNIFER COHEN IA, GIDEON JAMES Unavailable Unavailable ESTEVAN COHEN IA, CAMERON Unavailable Unavailable Matias COHEN, Mandeep Unavailable Unavailable Unavailable Unavailable Functional Status Name [...] D deficiency (268.9, E55.9) Status: Active 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 12, Z12.31) Status: Active Bilateral kidney stones (592.0, N20.0) Status: Active Rectal bleed (569.3, K62.5) Status: Active Golfers elbow of right upper extremity ( 726.31, M77.01) Status: Active B12 deficiency (266.2, E53.8) Status: Active Fatty liver (571.8, K76.0) Status: Active Mammogram abnormal (793.80, R92.8) Status: Active Need for hepatitis B vaccination [...] Colon cancer screening (V76.51, Z12.11) Status: Active Abnormal LFTs (790.6, R94.5) Status: Active Medications Name Dates Details Atorvastatin Calcium 20 MG Oral Tablet TAKE 1 TABLET BY MOUTH EVERY NIGHT AT BEDTIME Quantity: 90 MELANIE Forbes, DHRUV * Start : 28-May-2017 [...] Forbes DHRUV * Start : 09-Mar-2019 Active Clenpiq 10-3.5-12 MG-GM -GM/160ML Oral Solution Drink first bottle at 5pm, Drink second bottle at 10pm. Follow doctors instruct ions. * Quantity: 1 Refills: 0 MANDEEP SALCEDO M.D. * Start : 13-Dec-2019 Active 2 x 160 ML Bottle Allergies and Adverse Reactions Name Dates Details [...] 0.5 ML Intramuscula r Suspension Lot #: [id number] on: 31-Oct-2016 Fluzone Quadrivalent 0.5 ML Intramuscula r Suspension Lot #: [id number] on: 09-Jul-2017 Fluzone Quadrivalent 0.5 ML Intramuscula r Suspension Lot #: [id number] on: 10-Jun-2018 Tdap Lot #: [id number] on: 10-Jun-2018 Hepatitis B, adult Lot #: [id number] on: 09-Apr-2019 Hepatitis B, adult Lot #: [id number] on: 15-Jun-2019 Shingrix 50 MCG Intramuscular Suspension Reconstituted on: 06-Jul-2019 Fluzone Quadrivalent 0.5 ML Intramuscula r Suspension Lot #: [id number] on: 09-Jul-2019 Shingrix 50 MCG Intramuscular Suspension [...] (finding) Vital Signs Date Test Result Details :56 Systolic blood pressure 112 mm[Hg] Status: Comments : Location: LUE; Position: Sitting Diastolic blood pressure 72 mm[Hg] Status: Comment s: Location: LUE; Position: Sitting Body height 61 in Status: Weight 146 lb Status: Body mass index (BMI) [Ratio] 27.59 kg/m2 Status: Body surface area Derived from formula 1.65 m2 S tatus: Heart Rate 68 /min Status: Comments: Lo cation: L Radial; Quality: Normal :12 Systolic blood pressure 124 mm[Hg] Status: Comments : Location: LUE; Position: Sitting Diastolic blood pressure 72 mm[Hg] Status: Comment s: Location: LUE; Position: Sitting Body height 61 in Status: Weight 148 lb Status: Body mass index (BMI) [Ratio] 27.96 kg/m2 Status: Body surface area Derived from formula 1.66 m2 S tatus: Heart Rate 75 /min Status: Results Date Description Value Details :00 [QLH] VITAMIN B12 Vitamin B12 Level 361 pg/ml Range: 254-132 0 :00 [QLH] FOLATE, SERUM Folate Level 20.5 ng/ml Range: >=3.0 :00 [H] Methylmalonic Acid and Homocysteine Methylmalonic Acid Quantitative 159 nmol/L Range: 0-378 Homocysteine Total 11.3 umol/L Range: 0.0-14 .5 Comments: Please note reference interval change Plan of Care Name Dates Details Planned Observations Planned Goals not documented Planned Encounters Appointment; MANDEEP SALCEDO M.D. On: 16-Dec-2019 7:30 Appointment; SHAWN WANG M.D. On: 09-May-2020 8:00 Appointment; DHRUV NAVARRO M.D. On: 12-May-2020 8:00 Interventions Provided Medication Changes* Clenpiq 10-3.5-12 MG-GM -GM/160ML Oral Solution - Start Instructions Name Dates Details Instructions not documented [...] Problem not documented On: 30-Nov-2019 14:15 Appointment; MANDEEP SALCEDO M.D. Encounter Diagnosis: Problem not documented On: 13-Dec-2019 10:00
--- OUTSIDE RECORDS SUMMARY | 2020-05-05 11:34 | XMS REPORT | Summary of Care ---
Author Author LIBBY Barton M.A. Unknown Address Unknown Phone Unavailable Care Team Providers Care Neon Tube Bender Name Role Phone Ny Barton M.A. 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 * Start : 28-Dec-2018 [...] Z87.442) Status: Resolved Procedures Procedure Dates Details Colonoscopy Date: 14-Dec-2019 [QLH] TSH, 3RD GENERATION W/REFLEX TO FT4 Date: 09-Nov-2019 [Q] METHYLMALONIC ACID AND HOMOCYSTEINE (NUTRITIONAL A ND CONGENITAL) Date: 30-Nov-2019 History of Breast Surgery Removal Of Mammary Implant Bilater al Completed History of Abdominoplasty Completed History of Oophorectomy Completed History of Hysterectomy Completed History of Rotator Cuff Repair Completed Immunization Name Dates Details Fluzone Quadrivalent 0.5 ML Intramuscula r Suspension Lot #: [id number] on: 31-Oct-2016 Fluzone Quadrivalent 0.5 ML Intramuscula r Suspension Lot #: [id number] on: 09-Jul-2017 Fluzone Quadrivalent 0.5 ML Intramuscula r Suspension Lot #: [id number] on: 10-Jun-2018 Tdap Lot #: [id number] on: 10-Jun-2018 Hepatitis B, adult Lot #: [id number] on: 09-Apr-2019 Hepatitis B, adult Lot #: [id number] on: 15-Jun-2019 Shingrix 50 MCG Intramuscular Suspension Reconstituted on: 06-Jul-2019 Fluzone Quadrivalent 0.5 ML Intramuscula r Suspension Lot #: [id number] on: 09-Jul-2019 Shingrix 50 MCG Intramuscular Suspension [...] (finding) Vital Signs Date Test Result Details 13-Dec-20199:56 Systolic blood pressure 112 mm[Hg] Status: Comments : Location: LUE; Position: Sitting Diastolic blood pressure 72 mm[Hg] Status: Comment s: Location: LUE; Position: Sitting Body height 61 in Status: Weight 146 lb Status: Body mass index (BMI) [Ratio] 27.59 kg/m2 Status: Body surface area Derived from formula 1.65 m2 S tatus: Heart Rate 68 /min Status: Comments: Lo cation: L Radial; Quality: Normal [id number] Systolic blood pressure 124 mm[Hg] Status: Comments : Location: LUE; Position: Sitting Diastolic blood pressure 72 mm[Hg] Status: Comment s: Location: LUE; Position: Sitting Body height 61 in Status: Weight 148 lb Status: Body mass index (BMI) [Ratio] 27.96 kg/m2 Status: Body surface area Derived from formula 1.66 m2 S tatus: Heart Rate 75 /min Status: Results Date Description Value Details 08-Dec-20198:00 [QLH] VITAMIN B12 Vitamin B12 Level 361 pg/ml Range: 254-132 0 08-Dec-20198:00 [QLH] FOLATE, SERUM Folate Level 20.5 ng/ml Range: >=3.0 08-Dec-20198:00 [H] Methylmalonic Acid and Homocysteine Methylmalonic Acid Quantitative 159 nmol/L Range: 0-378 Homocysteine Total 11.3 umol/L Range: 0.0-14 .5 Comments: Please note reference interval change Plan of Care Name Dates Details Planned Observations Colonoscopy On: 16-Dec-2019 Intent Planned Goals not documented Planned Encounters [...]
--- OUTSIDE RECORDS SUMMARY | 2020-05-05 11:34 | XMS REPORT | Summary of Care ---
Author Author [facility] Address [address] [place] [address] Phone Unavailable Care Team Providers Care Wastewater Supervisor Name Role Phone KATHLEEN Forbes, SHAWN Unavailable Unavailable MELANIE Forbes, DHRUV Unavailable Unavailable MELANIE COHEN, DHRUV Unavailable Unavailable FREDDIE CARVALHO MD Unavailable Unavailable EMIL COHEN PA, LUBA FORD Unavailable Unavailable Kathleen COHEN, Shawn Unavailable Unavailable JENNIFER COHEN PA, GIDEON JAMES Unavailable Unavailable ESTEVAN COHEN PA, CAMERON Unavailable Unavailable Unavailable Unavailable Functional Status [...] D deficiency (268.9, E55.9) Status: Active Other correction (current) drug therapy ( V58.69, Z79.899) Status: [...] DAY * Quantity: 90 Refills: 1 MELANIE Forbes, DHRUV * Start : 28-Dec-2018 Active Lancets Check twice daily * Quantity: 100 Refills: 1 MELANIE Forbes, DHRUV * Start : 09-Mar-2019 Active Glucose Meter Test In Vitro Strip USE DIRECTED TWICE A DAY * Quantity: 100 Refills: 1 MELANIE Forbes, DHRUV * Start : 09-Mar-2019 Active Calcium 600 MG Oral Tablet TAKE 1 TAB BID * Refills: 0 Active Vitamin D3 50 MCG (1999 [place]) Oral Tablet Take 1 tab PO daily * Refills: 0 Active Multi Vitamin TABS [...] 0.5 ML Intramuscula r Suspension Lot #: [id number] on: 31-Oct-2016 Fluzone Quadrivalent 0.5 ML Intramuscula r Suspension Lot #: [id number] on: 09-Jul-2017 Fluzone Quadrivalent 0.5 ML Intramuscula r Suspension Lot #: [id number] on: 10-Jun-2018 Tdap Lot #: [id number] on: 10-Jun-2018 Hepatitis B, adult Lot #: [id number] on: 09-Apr-2019 Hepatitis B, adult Lot #: [id number] on: 15-Jun-2019 Shingrix 50 MCG Intramuscular Suspension Reconstituted on: 06-Jul-2019 Fluzone Quadrivalent 0.5 ML Intramuscula r Suspension Lot #: [id number] on: 09-Jul-2019 Shingrix 50 MCG Intramuscular Suspension [...] (finding) Vital Signs Date Test Result Details [id number] Systolic blood pressure 124 mm[Hg] Status: Comments : Location: LUE; Position: Sitting Diastolic blood pressure 72 mm[Hg] Status: Comment s: Location: LUE; Position: Sitting Body height 61 in Status: Weight 148 lb Status: Body mass index (BMI) [Ratio] 27.96 kg/m2 Status: Body surface area Derived from formula 1.66 m2 S tatus: Heart Rate 75 /min Status: :02 Systolic blood pressure 114 mm[Hg] Status: [...] thod: Temporal Respiratory rate 16 /min Status: 09-Nov-20198:06 Systolic [...]
--- OUTSIDE RECORDS SUMMARY | 2020-05-05 11:34 | XMS REPORT | Summary of Care ---
Author Author Jamison Forbes, [facility] [place] Unknown Address [facility] Phone Unavailable Care Team Providers Care Metal Tile Lather Name Role Phone KATHLEEN Forbes, SHAWN Unavailable Unavailable MELANIE Forbes, DHRUV Unavailable Unavailable MELANIE COHEN, DHRUV Unavailable Unavailable MAIA COHEN, FREDDIE Unavailable Unavailable EMIL COHEN LA, LUBA FORD Unavailable Unavailable Kathleen COHEN, Shawn Unavailable Unavailable JENNIFER COHEN UT, GIDEON JAMES Unavailable Unavailable ESTEVAN COHEN LA, CAMERON Unavailable Unavailable Unavailable Unavailable Functional Status [...] EVERY NIGHT AT BEDTIME Quantity: 90 SATTAR M.Alex., DHRUV * Start : 28-May-2017 Active Levothyroxine Sodium 75 MCG Oral Tablet TAKE 1 TABLET PO DAILY. * Quantity: 90 Refills: 1 KATHLEEN Leidy SHAWN * Start : 19-Feb-2018 Active metFORMIN HCl ER 500 MG Oral Tablet Extended Release 24 Hour TAKE 1 TABLET BY MOUTH EVERY DAY * Quantity: 90 Refills: 1 SATTAR Renu.Alex., DHRUV * Start : 28-Dec-2018 Active Multi [...] 0.5 ML Intramuscula r Suspension Lot #: [id number] on: 31-Oct-2016 Fluzone Quadrivalent 0.5 ML Intramuscula r Suspension Lot #: [id number] on: 09-Jul-2017 Fluzone Quadrivalent 0.5 ML Intramuscula r Suspension Lot #: [id number] on: 10-Jun-2018 Tdap Lot #: [id number] on: 10-Jun-2018 Hepatitis B, adult Lot #: [id number] on: 09-Apr-2019 Hepatitis B, adult Lot #: [id number] on: 15-Jun-2019 Shingrix 50 MCG Intramuscular Suspension Reconstituted on: 06-Jul-2019 Fluzone Quadrivalent 0.5 ML Intramuscula r Suspension Lot #: [id number] on: 09-Jul-2019 Shingrix 50 MCG Intramuscular Suspension [...] (finding) Vital Signs Date Test Result Details [id number] Systolic blood pressure 124 mm[Hg] Status: Comments [...] Status: Results Date Description Value Details :00 [QL] VITAMIN B12 Vitamin B12 Level 361 [...]
--- OUTSIDE RECORDS SUMMARY | 2020-05-05 11:34 | XMS REPORT | Summary of Care ---
Author Author LIBBY Leyva M.A. mt Organization Unknown Address [facility] Phone Unavailable Care Team Providers Care Insulation Cutter Name Role Phone KATHLEEN Forbes, SHAWN Unavailable Unavailable MATIAS Forbes, MANDEEP Unavailable Unavailable MELANIE Forbes, DHRUV Unavailable Unavailable MELANIE COHEN, DHRUV Unavailable Unavailable MAIA COHEN, FREDDIE Unavailable Unavailable EMIL COHEN UT, LUBA FORD Unavailable Unavailable Kathleen COHEN, Shawn Unavailable Unavailable JENNIFER COHEN UT, GIDEON JAMES Unavailable Unavailable ESTEVAN COHEN UT, CAMERON Unavailable Unavailable Matias COHEN, Mandeep Unavailable [...] D deficiency (268.9, E55.9) Status: Active Other [facility] (current) drug therapy ( V58.69, Z79.899) Status: [...] * Quantity: 100 Refills: 1 MELANIE Forbes, DRHUV * Start : 09-Mar-2019 Active Glucose Meter [...] 0.5 ML Intramuscula r Suspension Lot #: [id number] on: 31-Oct-2016 Fluzone Quadrivalent 0.5 ML Intramuscula r Suspension Lot #: [id number] on: 09-Jul-2017 Fluzone Quadrivalent 0.5 ML Intramuscula r Suspension Lot #: [id number] on: 10-Jun-2018 Tdap Lot #: [id number] on: 10-Jun-2018 Hepatitis B, adult Lot #: [id number] on: 09-Apr-2019 Hepatitis B, adult Lot #: [id number] on: 15-Jun-2019 Shingrix 50 MCG Intramuscular Suspension Reconstituted on: 06-Jul-2019 Fluzone Quadrivalent 0.5 ML Intramuscula r Suspension Lot #: [id number] on: 09-Jul-2019 Shingrix 50 MCG Intramuscular Suspension [...] Comments: Lo cation: L Radial; Quality: Normal [id number] Systolic blood pressure 124 mm[Hg] Status: Comments [...]
--- OUTSIDE RECORDS SUMMARY | 2020-05-05 11:34 | XMS REPORT | Summary of Care ---
Author Author [facility] Address [address] [place] [address] Phone Unavailable Care Team Providers Care Installation Tech Name Role Phone KATHLEEN Forbes, SHAWN Unavailable Unavailable MATIAS Forbes, MANDEEP Unavailable Unavailable MELANIE Forbes, DHRUV Unavailable Unavailable MELANIE COHEN, DHRUV Unavailable Unavailable MAIA COHEN, FREDDIE Unavailable Unavailable EMIL COHEN SD, LUBA FORD Unavailable Unavailable Kathleen COHEN, Shawn Unavailable Unavailable JENNIFER COHEN SD, GIDEON JAMES Unavailable Unavailable ESTEVAN COHEN SD, CAMERON Unavailable Unavailable Matias COHEN, Mandeep Unavailable [...] D deficiency (268.9, E55.9) Status: Active 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 ( V58.69, Z79.899) [...] 0.5 ML Intramuscula r Suspension Lot #: [id number] on: 31-Oct-2016 Fluzone Quadrivalent 0.5 ML Intramuscula r Suspension Lot #: [id number] on: 09-Jul-2017 Fluzone Quadrivalent 0.5 ML Intramuscula r Suspension Lot #: [id number] on: 10-Jun-2018 Tdap Lot #: [id number] on: 10-Jun-2018 Hepatitis B, adult Lot #: [id number] on: 09-Apr-2019 Hepatitis B, adult Lot #: [id number] on: 15-Jun-2019 Shingrix 50 MCG Intramuscular Suspension Reconstituted on: 06-Jul-2019 Fluzone Quadrivalent 0.5 ML Intramuscula r Suspension Lot #: [id number] on: 09-Jul-2019 Shingrix 50 MCG Intramuscular Suspension [...] Comments: Lo cation: L Radial; Quality: Normal [id number] Systolic blood pressure 124 mm[Hg] Status: Comments [...]
--- OUTSIDE RECORDS SUMMARY | 2020-05-05 11:34 | XMS REPORT | Summary of Care ---
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 ( V58.69, Z79.899) [...] MOUTH EVERY NIGHT AT BEDTIME Quantity: 90 SATYAIMAR Leidy, DHRUV * Start : 28-May-2017 [...] 0.5 ML Intramuscula r Suspension Lot #: [id number] on: 31-Oct-2016 Fluzone Quadrivalent 0.5 ML Intramuscula r Suspension Lot #: [id number] on: 09-Jul-2017 Fluzone Quadrivalent 0.5 ML Intramuscula r Suspension Lot #: [id number] on: 10-Jun-2018 Tdap Lot #: [id number] on: 10-Jun-2018 Hepatitis B, adult Lot #: [id number] on: 09-Apr-2019 Hepatitis B, adult Lot #: [id number] on: 15-Jun-2019 Shingrix 50 MCG Intramuscular Suspension Reconstituted on: 06-Jul-2019 Fluzone Quadrivalent 0.5 ML Intramuscula r Suspension Lot #: [id number] on: 09-Jul-2019 Shingrix 50 MCG Intramuscular Suspension [...] (finding) Vital Signs Date Test Result Details :12 Systolic blood pressure 124 mm[Hg] Status: [...] Status: Results Date Description Value Details : [[facility]] VITAMIN B12 Vitamin B12 Level 361 pg/ml Range: 254-132 0 : [[facility]] FOLATE, SERUM Folate Level 20.5 ng/ml Range: [...]
--- OUTSIDE RECORDS SUMMARY | 2020-05-05 11:34 | XMS REPORT | Summary of Care ---
Author Author [facility] Address [address] [place] [address] Phone Unavailable Care Team Providers Care Test Borer Helper Name Role Phone KATHLEEN Forbes, SHAWN Unavailable Unavailable MATIAS Forbes, MANDEEP Unavailable Unavailable MELANIE Forbes, DHRUV Unavailable Unavailable MELANIE COHEN, DHRUV Unavailable Unavailable MAIA COHEN, FREDDIE Unavailable Unavailable EMIL COHEN [place], LUBA FORD Unavailable Unavailable Kathleen COHEN, Shawn Unavailable Unavailable JENNIFER COHEN [place], GIDEON JAMES Unavailable Unavailable ESTEVAN COHEN [place], CAMERON Unavailable Unavailable Matias COHEN, Mandeep Unavailable [...] D deficiency (268.9, E55.9) Status: Active 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 ( V58.69, Z79.899) Status: [...] 0.5 ML Intramuscula r Suspension Lot #: [id number] on: 31-Oct-2016 Fluzone Quadrivalent 0.5 ML Intramuscula r Suspension Lot #: [id number] on: 09-Jul-2017 Fluzone Quadrivalent 0.5 ML Intramuscula r Suspension Lot #: [id number] on: 10-Jun-2018 Tdap Lot #: [id number] on: 10-Jun-2018 Hepatitis B, adult Lot #: [id number] on: 09-Apr-2019 Hepatitis B, adult Lot #: [id number] on: 15-Jun-2019 Shingrix 50 MCG Intramuscular Suspension Reconstituted on: 06-Jul-2019 Fluzone Quadrivalent 0.5 ML Intramuscula r Suspension Lot #: [id number] on: 09-Jul-2019 Shingrix 50 MCG Intramuscular Suspension [...] Comments: Lo cation: L Radial; Quality: Normal 30-Fpc-[id number]:12 Systolic blood pressure 124 mm[Hg] Status: Comments [...]
--- OUTSIDE RECORDS SUMMARY | 2020-05-05 11:35 | XMS REPORT | Summary of Care ---
Author Author [facility] Address [address] [place] [address] Phone Unavailable Care Team Providers Care Deaf And Hard Of Hearing Teacher Name Role Phone KATHLEEN Forbes, SHAWN Unavailable Unavailable MATIAS Forbes, MANDEEP Unavailable Unavailable MELANIE Forbes, DHRUV Unavailable Unavailable MELANIE COHEN, DHRUV Unavailable Unavailable MAIA COHEN, FREDDIE Unavailable Unavailable EMIL COHEN [place], LUBA FORD Unavailable Unavailable Kathleen COHEN, Shawn Unavailable Unavailable JENNIFER COHEN [place], GIDEON JAMES Unavailable Unavailable ESTEVAN COHEN [place], CAMERON Unavailable Unavailable Matias COHEN, Mandeep Unavailable [...] deficiency (268.9, E55.9) Status: Active 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 Follow doctors instruct ions. * Quantity: 1 Refills: 0 MANDEEP SALCEDO M.D. * Start : 13-Dec-2019 Active 2 x 160 ML Bottle Glucose Meter Test In Vitro Strip USE DIRECTED TWICE A DAY * Quantity: 100 Refills: 1 MELANIE Forbes, DHRUV * Start : 09-Mar-2019 Active Lancets Check twice daily * Quantity: 100 Refills: 1 MELANIE Forbes DHRUV * Start : 09-Mar-2019 Active Multi Vitamin TABS TAKE 1 TABLET DAILY. * Refills: 0 Active Levothyroxine Sodium 75 MCG Oral Tablet TAKE 1 TABLET PO DAILY. * Quantity: 90 Refills: 1 SHAWN WANG M.D. * Start : 19-Feb-2018 Active Allergies and Adverse Reactions Name Dates [...] 0.5 ML Intramuscula r Suspension Lot #: [id number] on: 31-Oct-2016 Fluzone Quadrivalent 0.5 ML Intramuscula r Suspension Lot #: [id number] on: 09-Jul-2017 Fluzone Quadrivalent 0.5 ML Intramuscula r Suspension Lot #: [id number] on: 10-Jun-2018 Tdap Lot #: [id number] on: 10-Jun-2018 Hepatitis B, adult Lot #: [id number] on: 09-Apr-2019 Hepatitis B, adult Lot #: [id number] on: 15-Jun-2019 Shingrix 50 MCG Intramuscular Suspension Reconstituted on: 06-Jul-2019 Fluzone Quadrivalent 0.5 ML Intramuscula r Suspension Lot #: [id number] on: 09-Jul-2019 Shingrix 50 MCG Intramuscular Suspension [...] Comments: Lo cation: L Radial; Quality: Normal [id number] Systolic blood pressure 124 mm[Hg] Status: Comments [...]
--- OUTSIDE RECORDS SUMMARY | 2020-05-05 11:35 | XMS REPORT | Summary of Care ---
Author Author [facility] Address [address] [place] [address] Phone Unavailable Care Team Providers Care Internal Grinder Tender Name Role Phone KATHLEEN Forbes, SHAWN Unavailable Unavailable MELANIE Forbes, DHRUV Unavailable Unavailable MELANIE COHEN, DHRUV Unavailable Unavailable MAIA COHEN, FREDDIE Unavailable Unavailable EMIL COHEN [place], LUBA FORD Unavailable Unavailable Kathleen COHEN, Shawn Unavailable Unavailable JENNIFER COHEN [place], GIDEON JAMES Unavailable Unavailable ESTEVAN COHEN [place], CAMERON Unavailable Unavailable Iliana COHEN, Mandeep Unavailable Unavailable Unavailable Unavailable Functional [...] for colon cancer (V76.51, Z12.11) Status: Active Allergic contact dermatitis due to [...] deficiency (268.9, E55.9) Status: Active 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 * Quantity: 90 Refills: 1 SHAWN WANG M.D. * Start : 19-Feb-2018 Active Multi Vitamin [...] Forbes DHRUV * Start : 09-Mar-2019 Active metFORMIN HCl ER 500 MG Oral Tablet Extended Release 24 Hour TAKE 1 TABLET BY MOUTH EVERY DAY * Quantity: 90 Refills: 1 MELANIE Forbes, DHRUV * Start : 28-Dec-2018 Active Allergies and Adverse Reactions Name Dates [...] 0.5 ML Intramuscula r Suspension Lot #: [id number] on: 31-Oct-2016 Fluzone Quadrivalent 0.5 ML Intramuscula r Suspension Lot #: [id number] on: 09-Jul-2017 Fluzone Quadrivalent 0.5 ML Intramuscula r Suspension Lot #: [id number] on: 10-Jun-2018 Tdap Lot #: [id number] on: 10-Jun-2018 Hepatitis B, adult Lot #: [id number] on: 09-Apr-2019 Hepatitis B, adult Lot #: [id number] on: 15-Jun-2019 Shingrix 50 MCG Intramuscular Suspension Reconstituted on: 06-Jul-2019 Fluzone Quadrivalent 0.5 ML Intramuscula r Suspension Lot #: [id number] on: 09-Jul-2019 Shingrix 50 MCG Intramuscular Suspension [...] (finding) Vital Signs Date Test Result Details No Known Vitals to report Results Date Description Value Details Results not documented Plan of Care Name Dates Details Planned Observations Planned Goals not documented Planned Encounters Appointment; DHRUV NAVARRO M.D. On: 12-May-2020 8:00 Instructions Name Dates Details Instructions not documented Encounters Appointment; CAMERON BARRETO M.D. Encounter Diagnosis: Problem [...]
--- OUTSIDE RECORDS SUMMARY | 2020-05-05 11:35 | XMS REPORT | Summary of Care ---
Author Author LIBBY Leyva M.A. me Organization Unknown Address [facility] Phone Unavailable Care Team Providers Care Dinkey Dispatcher Name Role Phone Traci Leyav M.A. Unavailable Unavailable KATHLEEN Forbes, SHAWN Unavailable Unavailable MELANIE Forbes, DHRUV Unavailable Unavailable MELANIE COHEN, DHRUV Unavailable Unavailable MAIA COHEN, FREDDIE Unavailable Unavailable EMIL COHEN [place], LUBA FORD Unavailable Unavailable Kathleen COHEN, Shawn Unavailable Unavailable JENNIFER COHEN [place], GIDEON JAMES Unavailable Unavailable ESTEVAN COHEN [place], CAMERON Unavailable Unavailable Iliana COHEN, Mandeep Unavailable [...] EVERY NIGHT AT BEDTIME Quantity: 90 SATTAR Renu.Alex., DHRUV * Start : 28-May-2017 Active Levothyroxine Sodium 75 MCG Oral Tablet TAKE 1 TABLET PO DAILY. * Quantity: 90 Refills: 1 KATHLEEN Forbes, SHAWN * Start : 19-Feb-2018 Active metFORMIN [...] 0.5 ML Intramuscula r Suspension Lot #: [id number] on: 31-Oct-2016 Fluzone Quadrivalent 0.5 ML Intramuscula r Suspension Lot #: [id number] on: 09-Jul-2017 Fluzone Quadrivalent 0.5 ML Intramuscula r Suspension Lot #: [id number] on: 10-Jun-2018 Tdap Lot #: [id number] on: 10-Jun-2018 Hepatitis B, adult Lot #: [id number] on: 09-Apr-2019 Hepatitis B, adult Lot #: [id number] on: 15-Jun-2019 Shingrix 50 MCG Intramuscular Suspension Reconstituted on: 06-Jul-2019 Fluzone Quadrivalent 0.5 ML Intramuscula r Suspension Lot #: [id number] on: 09-Jul-2019 Shingrix 50 MCG Intramuscular Suspension [...] pressure 72 mm[Hg] Status: Comment s: Location: E; Position: Sitting Body height 61 in Status: Weight 146 lb Status: Body mass index (BMI) [Ratio] 27.59 kg/m2 Status: Body surface area Derived from formula 1.65 m2 S tatus: Heart Rate 68 /min Status: Comments: Lo cation: L Radial; Quality: Normal [id number] Systolic blood pressure 124 mm[Hg] Status: Comments [...] Level 361 pg/ml Range: 254-132 0 : [QLH] FOLATE, SERUM Folate Level 20.5 ng/ml [...]
--- OUTSIDE RECORDS SUMMARY | 2020-05-05 11:35 | XMS REPORT | Summary of Care ---
Author Author [facility] Address [address] [place] [address] Phone Unavailable Care Team Providers Care Director Peoplesoft Name Role Phone KATHLEEN Forbes, SHAWN Unavailable Unavailable MATIAS Forbes, MANDEEP Unavailable Unavailable MELANIE Forbes, DHRUV Unavailable Unavailable MELANIE COHEN, DHRUV Unavailable Unavailable MAIA COHEN, FREDDIE Unavailable Unavailable EMIL COHEN [place], LUBA FORD Unavailable Unavailable Kathleen COHEN, Shawn Unavailable Unavailable JENNIFER COHEN [place], GIDEON JAMES Unavailable Unavailable ESTEVAN COHEN [place], CAMERON Unavailable Unavailable Matias COHEN, Mandeep Unavailable [...] D deficiency (268.9, E55.9) Status: Active 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 Quantity: 90 KATHLEEN Forbes, SHAWN * Start : 19-Feb-2018 Active metFORMIN HCl ER 500 MG Oral Tablet Extended Release 24 Hour TAKE 1 TABLET BY MOUTH EVERY DAY * Quantity: 90 Refills: 1 MELANIE Forbes DHRUV * Start : 28-Dec-2018 Active Calcium 600 MG Oral Tablet TAKE 1 TAB BID * Refills: 0 Active Vitamin D3 50 MCG (2000 UT) Oral Tablet Take 1 tab PO daily * Refills: 0 Active Glucose Meter Test In Vitro Strip USE DIRECTED TWICE A DAY * Quantity: 100 Refills: 1 MELANIE Forbes, DHRUV * Start : 09-Mar-2019 Active Lancets Check twice daily * Quantity: 100 Refills: 1 MELANIE Forbes, DHRUV * Start : 09-Mar-2019 Active Atorvastatin Calcium 20 MG Oral Tablet TAKE 1 TABLET BY MOUTH EVERY NIGHT AT BEDTIME * Quantity: 90 Refills: 0 MELANIE Forbes, DHRUV * Start : 28-May-2017 Active Multi Vitamin TABS TAKE 1 TABLET DAILY. * Refills: 0 Active Clenpiq 10-3.5-12 MG-GM [...] Procedures Procedure Dates Details Colonoscopy Date: 14-Dec-2019 [Q] METHYLMALONIC ACID AND HOMOCYSTEINE (NUTRITIONAL A ND CONGENITAL) Date: 30-Nov-2019 [QLH] TSH, 3RD GENERATION W/REFLEX TO FT4 Date: 09-Nov-2019 History of Breast Surgery Removal Of Mammary Implant Bilater al Completed History of Abdominoplasty Completed History of Oophorectomy Completed History of Hysterectomy Completed History of Rotator Cuff Repair Completed Immunization Name Dates Details Fluzone Quadrivalent 0.5 ML Intramuscula r Suspension Lot #: [id number] on: 31-Oct-2016 Fluzone Quadrivalent 0.5 ML Intramuscula r Suspension Lot #: [id number] on: 09-Jul-2017 Fluzone Quadrivalent 0.5 ML Intramuscula r Suspension Lot #: [id number] on: 10-Jun-2018 Tdap Lot #: [id number] on: 10-Jun-2018 Hepatitis B, adult Lot #: [id number] on: 09-Apr-2019 Hepatitis B, adult Lot #: [id number] on: 15-Jun-2019 Shingrix 50 MCG Intramuscular Suspension Reconstituted on: 06-Jul-2019 Fluzone Quadrivalent 0.5 ML Intramuscula r Suspension Lot #: [id number] on: 09-Jul-2019 Shingrix 50 MCG Intramuscular Suspension [...] Comments: Lo cation: L Radial; Quality: Normal [id number] Systolic blood pressure 124 mm[Hg] Status: Comments [...] SHAWN WANG M.D. On: 09-May-2020 8:00 Appointment; DHRVU NAVARRO M.D. On: 12-May-2020 8:00 Instructions Name [...] Problem not documented On: 05-Aug-2018 8:30 Appointment; EGNA STILL D.O. Encounter Diagnosis: Problem not documented [...]
--- OUTSIDE RECORDS SUMMARY | 2020-05-05 11:35 | XMS REPORT | Summary of Care ---
Author LIBBY King Organization Unknown Address [facility] Phone Unavailable Care Team Providers Care Oil Tank Car Cleaner Name Role Phone Evie Gomez Unavailable Unavailable KATHLEEN Forbes, SHAWN Unavailable Unavailable [...] daily * Quantity: 100 Refills: 1 SATTAR Chuy., DHRUV * Start : 09-Mar-2019 Active Glucose [...] Z87.442) Status: Resolved Procedures Procedure Dates Details [Q] METHYLMALONIC ACID AND HOMOCYSTEINE (NUTRITIONAL A ND CONGENITAL) Date: 30-Nov-2019 History of Breast Surgery Removal Of Mammary Implant Bilater al Completed History of Abdominoplasty Completed History of Oophorectomy Completed History of Hysterectomy Completed History of Rotator Cuff Repair Completed Immunization Name Dates Details Fluzone Quadrivalent 0.5 ML Intramuscula r Suspension Lot #: [id number] on: 31-Oct-2016 Fluzone Quadrivalent 0.5 ML Intramuscula r Suspension Lot #: [id number] on: 09-Jul-2017 Fluzone Quadrivalent 0.5 ML Intramuscula r Suspension Lot #: [id number] on: 10-Jun-2018 Tdap Lot #: [id number] on: 10-Jun-2018 Hepatitis B, adult Lot #: [id number] on: 09-Apr-2019 Hepatitis B, adult Lot #: [id number] on: 15-Jun-2019 Shingrix 50 MCG Intramuscular Suspension Reconstituted on: 06-Jul-2019 Fluzone Quadrivalent 0.5 ML Intramuscula r Suspension Lot #: [id number] on: 09-Jul-2019 Shingrix 50 MCG Intramuscular Suspension [...] not documented On: 10-Dec-2018 10:15 Appointment; DHRUV NAVRARO M.D. Encounter Diagnosis: Problem not documented On: [...]
--- OUTSIDE RECORDS SUMMARY | 2020-05-05 11:35 | XMS REPORT | Summary of Care ---
Author Author [facility] Address [address] [place] [address] Phone Unavailable Care Team Providers Care Exhaust Equipment Operator Name Role Phone KATHLEEN Forbes, SHAWN Unavailable Unavailable MATIAS Forbes, MANDEEP Unavailable Unavailable MELANIE Forbes, DHRUV Unavailable Unavailable MELANIE COHEN, DHRUV Unavailable Unavailable MAIA COHEN, FREDDIE Unavailable Unavailable EMIL COHEN [place], LUBA FORD Unavailable Unavailable Kathleen COHEN, Shawn Unavailable Unavailable JENNIFER COHEN [place], GIDEON JAMES Unavailable Unavailable ESTEVAN COHEN [place], CAMERON Unavailable Unavailable Matias COHEN, Mandeep Unavailable [...] D deficiency (268.9, E55.9) Status: Active 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 ( V58.69, Z79.899) [...] 0.5 ML Intramuscula r Suspension Lot #: [id number] on: 31-Oct-2016 Fluzone Quadrivalent 0.5 ML Intramuscula r Suspension Lot #: [id number] on: 09-Jul-2017 Fluzone Quadrivalent 0.5 ML Intramuscula r Suspension Lot #: [id number] on: 10-Jun-2018 Tdap Lot #: [id number] on: 10-Jun-2018 Hepatitis B, adult Lot #: [id number] on: 09-Apr-2019 Hepatitis B, adult Lot #: [id number] on: 15-Jun-2019 Shingrix 50 MCG Intramuscular Suspension Reconstituted on: 06-Jul-2019 Fluzone Quadrivalent 0.5 ML Intramuscula r Suspension Lot #: [id number] on: 09-Jul-2019 Shingrix 50 MCG Intramuscular Suspension [...] Comments: Lo cation: L Radial; Quality: Normal 47-Rxf-719687:12 Systolic blood pressure 124 mm[Hg] Status: Comments [...] not documented On: 20-May-2018 9:00 Appointment; DHRUV NAVRARO M.D. Encounter Diagnosis: Problem [...]
== END 2020-04-18 20:23 | disposition home or self-care (01) ==
LOC: ER 15:25
DX: M54.5 Low back pain (principal); N39.0 Urinary tract infection, site not specified; N20.1 Calculus of ureter; E11.9 Type 2 diabetes mellitus without complications; E03.9 Hypothyroidism, unspecified; Z87.442 Personal history of urinary calculi
CPT/HCPCS: 36415; 74176; 80048; 81001; 85025; 85610; 85730; 87086; 99284; J1885; J2405; J7030

== ENCOUNTER 2020-12-25 12:43 | Emergency (ER) | payer BC, OTHER ==
[~2020-12-25] VITALS: Ht 154.9 cm; Wt 70.8 kg
[2020-12-25] MEDS ORDERED: SODIUM CHLORIDE 0.9% 1000ML 1,000 ML IV STA (12:50)
[2020-12-25] MEDS ORDERED: ONDANSETRON HCL INJ 2MG/ML 2ML 2 MG/ML VIAL IV ONE (13:00)
[2020-12-25] MEDS ORDERED: FAMOTIDINE 20 MG/2 ML VIAL IV ONE ×2 (13:00→14:15)
[2020-12-25] MEDS ORDERED: KETOROLAC TROMETHAMINE 30 MG/ML VIAL IV ONE ×2 (13:00→14:45)
[2020-12-25] MEDS ORDERED: ULTRAM 50MG50 MG PO (14:34)
[2020-12-25] MEDS ORDERED: IBUPROFEN IB200 MG PO (14:34)
[2020-12-25] MEDS ORDERED: ONDANSETRON ODT4 MG PO (14:34)
[2020-12-25] MEDS ORDERED: TYLENOL # 31 EA PO (14:34)
[2020-12-25] MEDS ORDERED: KETOROLAC TROMETHAMINE 30 MG/ML VIAL ONE (14:46)
== END 2020-12-25 14:58 | disposition home or self-care (01) ==
LOC: FSED 12:50
DX: M54.5 Low back pain (principal); R11.2 Nausea with vomiting, unspecified; N13.2 Hydronephrosis with renal and ureteral calculous obstruction; E11.65 Type 2 diabetes mellitus with hyperglycemia
CPT/HCPCS: 74176; 80048; 81003; 85025; 99284; J1885; J2405

== ENCOUNTER → 2021-01-11 | Outpatient (CLI) | payer OTHER, BC ==
[~2021-01-11] MED LIST changes: +IBUPROFEN IB200 MG PO; +ONDANSETRON ODT4 MG PO; +TYLENOL # 31 EA PO
== END ==
LOC: RAD 06:48
PROVIDERS: ATTEND Urology
DX: N20.0 Calculus of kidney (principal)
CPT/HCPCS: 74018